=== PATIENT | female | born 1935 | race Caucasian/White ===

== ENCOUNTER 2019-12-25 09:52 | Outpatient (REF) | payer MEDICARE, SELFPAY ==
--- NOTE | 2019-12-25 10:05 | US_ITS ---
EXAMINATION: US RETROPERITONEAL LIMITED (RENAL ONLY) CLINICAL INFORMATION: CKD. COMPARISON: Ultrasound abdomen complete 06/30/2015. CT abdomen and pelvis 08/24/2005. TECHNIQUE: Real-time imaging of the kidneys. FINDINGS: RIGHT KIDNEY: 8.8 x 4.1 x 4.0 cm (SAG x AP x TRV). The kidney is normal in size and contour. There is mild cortical thinning with mild hydronephrosis. No calculi or focal parenchymal lesions. LEFT KIDNEY: 9.2 x 3.4 x 4.0 cm (SAG x AP x TRV). The kidney is normal in size and contour. There is mild cortical thinning with mild hydronephrosis. No calculi or focal parenchymal lesions. US/US renal BI IMPRESSION: Bilateral renal cortical thinning. There is mild hydronephrosis without echogenic calculi.
== END 2019-12-25 09:53 | disposition home or self-care (01) ==
LOC: HO.HMGCX 09:52
PROVIDERS: PCP Internal Medicine; Visit Provider Internal Medicine
DX: N18.32 Chronic kidney disease, stage 3b (principal)
CPT/HCPCS: 76775

== ENCOUNTER 2019-12-31 07:50 | Outpatient (REF) | payer MEDICARE, SELFPAY ==
[2019-12-31 11:24] LABS: MANUAL DIFF FLAG NO
[2019-12-31 11:39] LABS: Glucose Urine UA NEG (NEG); Leukocyte Esterase Urine NEG (NEG); Nitrite Urine NEG (NEG); PH 6.5 (5.0-8.0); Urine Blood NEG (NEG); Urine Ketones NEG (NEG); Urine Protein NEG (NEG-TRACE)
[2019-12-31 11:41] LABS: Basophils Absolute Auto 0.1 X10*3/uL (0.0-0.2); Basophils Percent Auto 1.3 % (0-2); Eosinophils Absolute Auto 0.6 X10*3/uL (0.0-0.4); Hematocrit 43.4 % (37-47); Hemoglobin 13.7 g/dl (12.0-16.0); Imm Gran Abs Auto 0.01 X10*3/uL (0.00-0.03); Imm Gran Pct Auto 0.1 % (0.0-0.4); Lymphocytes Absolute Auto 2.3 X10*3/uL (1.2-4.9); Lymphocytes Percent Auto 29.5 % (20-40); Mean Corpuscular HGB Conc 31.6 g/dl (31.0-35.0); Mean Corpuscular Hemoglobin 29.5 pg (27.0-33.0); Mean Corpuscular Volume 93.5 fL (80-98); Monocytes Absolute Auto 0.7 X10*3/uL (0.1-1.2); Monocytes Percent Auto 9.2 % (2-11); Neutrophils Absolute Auto 4.2 X10*3/uL (2.0-8.3); Neutrophils Percent Auto 52.9 % (45-73); Platelet Count 310 X10*3/uL (160-400); Red Blood Count 4.64 X10*6/uL (4.20-5.50); Red Cell Distribution Width 13.6 % (11.0-16.0); White Blood Count 7.8 X10*3/uL (4.8-10.8)
[2019-12-31 11:55] LABS: Appearance Urine HAZY; Color Urine YELLOW; UACC CULT NO
[2019-12-31 12:01] LABS: Mucus Urine TRACE /LPF; RBC Urine 0 /HPF (0); Squamous Epithelial Cell Urine TRACE /LPF; WBC Urine 0 /HPF (0-4)
[2019-12-31 12:32] LABS: Thyroid Stimulating Hormone 1.77 mIU/mL (0.32-4.0)
[2019-12-31 12:36] LABS: Alanine Aminotransferase 17 U/L (0-31); Albumin Level 4.2 g/dL (3.5-5.0); Alkaline Phosphatase 68 U/L (39-117); Anion Gap 13 (12-20); Aspartate Amino Transferase 31 U/L (5-31); Bilirubin Total 0.6 mg/dL (0.0-1.0); Blood Urea Nitrogen 16 mg/dL (9-16); Carbon Dioxide 29 mmol/L (22-29); Chloride 103 mmol/L (96-108); Cholesterol 158 mg/dL; Estimated Glomerular Filt Rate 41; Glucose Fasting 84 mg/dL (60-99); HDL Cholesterol 58 mg/dL; LDL Cholesterol Calculated 83 mg/dl; Potassium 4.7 mmol/l (3.3-5.1); Sodium 140 mmol/L (135-145); Total Protein 7.1 g/dL (6.5-8.0); Triglycerides 89 mg/dL
== END 2019-12-31 07:51 | disposition home or self-care (01) ==
LOC: HO.HMGCLDS 07:50
PROVIDERS: PCP Internal Medicine; Visit Provider Internal Medicine
DX: I12.9 Hypertensive chronic kidney disease with stage 1 through stage 4 chronic kidney disease, or unspecified chronic kidney disease (principal); N18.32 Chronic kidney disease, stage 3b; C50.411 Malignant neoplasm of upper-outer quadrant of right female breast; E78.00 Pure hypercholesterolemia, unspecified; E55.9 Vitamin D deficiency, unspecified
CPT/HCPCS: 36415; 80053; 80061; 81001; 82306; 84443; 85025

== ENCOUNTER 2020-01-04 11:28 | Outpatient (REF) | payer MEDICARE, SELFPAY ==
--- NOTE | 2020-01-04 | US_ITS ---
EXAMINATION: US PELVIS LIMITED (BLADDER) CLINICAL INFORMATION: Chronic renal failure stage III, hydronephrosis. COMPARISON: Retroperitoneal ultrasound renals only dated 12/25/2019. Ultrasound abdomen complete dated 06/30/2015. TECHNIQUE: Real-time imaging of the bladder. FINDINGS: BLADDER: Well distended and normal. Bilateral ureteral jets are demonstrated. Prevoid bladder volume is 155 mL. Postvoid bladder volume is 1.7 mL. US/US bladder IMPRESSION: Negligible post void residual.
== END 2020-01-04 11:29 | disposition home or self-care (01) ==
LOC: HO.HMGCX 11:28
PROVIDERS: Visit Provider Internal Medicine
DX: N18.32 Chronic kidney disease, stage 3b (principal); N13.30 Unspecified hydronephrosis
CPT/HCPCS: 76857

== ENCOUNTER → 2020-05-12 13:37 | Outpatient (BNV) | payer MEDICARE, SELFPAY | PROVIDERS: PCP Internal Medicine; Visit Provider Internal Medicine Medical Oncology | DX: M85.80 Other specified disorders of bone density and structure, unspecified site (principal); Z85.3 Personal history of malignant neoplasm of breast; Z85.828 Personal history of other malignant neoplasm of skin | CPT/HCPCS: 99213; 99214 ==

== ENCOUNTER 2020-05-26 09:52 | Outpatient (REF) | payer MEDICARE, SELFPAY ==
[2020-05-26 12:10] LABS: Anion Gap 11 (12-20); Blood Urea Nitrogen 20 mg/dL (9-16); Carbon Dioxide 30 mmol/L (22-29); Chloride 104 mmol/L (96-108); Estimated Glomerular Filt Rate 44; Glucose Random 76 mg/dL (60-115); Potassium 4.6 mmol/L (3.3-5.1); Sodium 140 mmol/L (135-145)
== END 2020-05-26 09:53 | disposition home or self-care (01) ==
LOC: HO.HMGCLDS 09:52
PROVIDERS: PCP Internal Medicine; Visit Provider Internal Medicine
DX: I12.9 Hypertensive chronic kidney disease with stage 1 through stage 4 chronic kidney disease, or unspecified chronic kidney disease (principal); N18.32 Chronic kidney disease, stage 3b
CPT/HCPCS: 36415; 80048

== ENCOUNTER 2020-12-20 10:58 | Outpatient (REF) | payer MEDICARE, SELFPAY ==
--- NOTE | ~2020-12-20 | MM_ITS ---
EXAMINATION: MM SCREENING DIGITAL BREAST TOMOSYNTHESIS, BILATERAL CLINICAL INFORMATION: Screening. Asymptomatic. Status post right lumpectomy. COMPARISON: Mammography: November 10, 2019 and studies dating back to April 06, 2011 TECHNIQUE: Digital breast tomosynthesis is performed in both the craniocaudal and mediolateral oblique views along with computer-aided detection (CAD). Synthesized 2D images are generated from the tomosynthesis. FINDINGS: There are scattered areas of fibroglandular density (ACR BI-RADS breast composition Category b). There are no new significant masses, abnormal calcifications, or other abnormalities. Right breast postsurgical change. MM/MM tomosynthesis screening BI IMPRESSION: There are no significant changes from prior study. ASSESSMENT: BI-RADS 2: Benign RECOMMENDATION: Routine annual mammography screening. This patient's information was entered into a reminder system with a target due date for their next mammogram.
--- NOTE | ~2020-12-20 | MM_ITS ---
EXAMINATION: BONE DENSITOMETRY CLINICAL INDICATION: Osteopenia. COMPARISON: Previous BD dated 06/05/2016 and baseline BD dated 03/13/2005. TECHNIQUE: Using a [employer] DXA System (software version: 13.1) manufactured by [employer], dual-energy x-ray absorptiometry was performed of the lumbar spine and left hip. The images are of good technical quality. Summary results are attached. FINDINGS: AP SPINE L1-L4: Current: BMD 1.468 g/cm2, Z-score 4.2, T-score 2.4, normal, 4.1% increase from previous, 18.7% increase from baseline (<5% change is not significant). Prior: BMD 1.410 g/cm2. Baseline: BMD 1.237 g/cm2. LEFT FEMUR, NECK: Current: BMD 0.812 g/cm2, Z-score 0.7, T-score -1.6, osteopenia. Prior: BMD 0.755 g/cm2. Baseline: BMD 0.796 g/cm2. LEFT FEMUR, TOTAL: Current: BMD 0.901 g/cm2, Z-score 1.4, T-score -0.8, normal, 1.6% decrease from previous, 3.7% increase from baseline (<5% change is not significant). Prior: BMD 0.916 g/cm2. Baseline: BMD 0.869 g/cm2. IDENTIFIED RISK FACTORS: Early menopause, secondary osteoporosis, osteoporosis, height loss, family history (parental hip fracture). HISTORY OF FRACTURE: None listed. MEDICATIONS: Calcium supplements or multivitamin, vitamin D. MM/XR DEXA axial skeleton IMPRESSION: 1. DIAGNOSIS: Osteopenia based on the lowest T-score value of -1.6 in the femoral neck applying World Health Organization criteria. 2. 10-YEAR FRACTURE RISK PREDICTION, FRAX: Major osteoporotic fracture (clinical spine, forearm, hip or shoulder) 24.1%. Hip fracture 15.1%. 3. Treatment Recommendations: NOF guidelines recommend consideration for treatment in postmenopausal women and men age 50 and older presenting with the following: -A hip or vertebral (clinical or morphometric) fracture. -T-score less than or equal to -2.5 at the femoral neck or spine after appropriate evaluation to exclude secondary causes. -Low bone mass at the hip or spine and a 10-year fracture probability by FRAX of greater than or equal to 3% for hip fracture or greater than or equal to 20% for major osteoporotic fracture based on the [place] adapted WHO algorithm. 4. Other Recommendations: All treatment decisions require clinical judgment and consideration of individual patient factors, including patient preferences, comorbidities, previous drug use, risk factors not captured in the FRAX model (e.g. frailty, falls, vitamin D deficiency, increased bone turnover, interval significant decline in bone density) and possible under or overestimation of fracture risk by FRAX. Additional medical evaluation for secondary cause of low bone mineral density may be appropriate. FUTURE SCAN RECOMMENDATION: People with diagnosed cases of osteoporosis or at high risk for fracture should have regular bone mineral density tests. For patients eligible for Medicare, routine testing is allowed once every 2 years. The testing frequency can be increased to one year for patients who have rapidly progressing disease, those who are receiving or discontinuing medical therapy to restore bone mass, or have additional risk factors.
== END 2020-12-20 10:59 | disposition home or self-care (01) ==
LOC: HO.MAMMO 10:58
PROVIDERS: Visit Provider Internal Medicine Medical Oncology
DX: Z12.31 Encounter for screening mammogram for malignant neoplasm of breast (principal); Z13.820 Encounter for screening for osteoporosis; M85.80 Other specified disorders of bone density and structure, unspecified site; Z78.0 Asymptomatic menopausal state; Z79.899 Other long term (current) drug therapy
CPT/HCPCS: 77063; 77067; 77080

== ENCOUNTER 2021-01-12 08:18 | Outpatient (REF) | payer MEDICARE, SELFPAY ==
[2021-01-12 11:38] LABS: MANUAL DIFF FLAG NO
[2021-01-12 11:53] LABS: Basophils Absolute Auto 0.1 X10*3/uL (0.0-0.2); Basophils Percent Auto 1.2 % (0-2); Eosinophils Absolute Auto 0.6 X10*3/uL (0.0-0.4); Eosinophils Percent Auto 8.5 % (0-4); Hematocrit 41.4 % (37.0-47.0); Hemoglobin 13.3 g/dl (12.0-16.0); Imm Gran Abs Auto 0.01 X10*3/uL (0.00-0.03); Imm Gran Pct Auto 0.1 % (0.0-0.4); Lymphocytes Absolute Auto 2.1 X10*3/uL (1.2-4.9); Lymphocytes Percent Auto 28.7 % (20-40); Mean Corpuscular HGB Conc 32.1 g/dl (31.0-35.0); Mean Corpuscular Hemoglobin 29.4 pg (27.0-33.0); Mean Corpuscular Volume 91.4 fL (80.0-98.0); Mean Platelet Volume 10.6 fL (9.4-12.3); Monocytes Absolute Auto 0.9 X10*3/uL (0.1-1.2); Monocytes Percent Auto 11.7 % (2-11); Neutrophils Absolute Auto 3.6 x10*3/uL (2.0-8.3); Neutrophils Percent Auto 49.8 % (45-73); Platelet Count 298 X10*3/uL (160-400); Red Blood Count 4.53 X10*6/uL (4.20-5.50); Red Cell Distribution Width 13.4 % (11.0-16.0); White Blood Count 7.3 X10*3/uL (4.8-10.8)
[2021-01-12 12:38] LABS: Alanine Aminotransferase 18 U/L (0-31); Alkaline Phosphatase 65 U/L (39-117); Anion Gap 14 (12-20); Aspartate Amino Transferase 29 U/L (5-31); Bilirubin Total 0.6 mg/dL (0.0-1.0); Blood Urea Nitrogen 15 mg/dL (9-16); Calcium 9.2 mg/dL (8.4-10.2); Carbon Dioxide 25 mmol/L (22-29); Chloride 105 mmol/L (96-108); Cholesterol 177 mg/dL; Estimated Glomerular Filt Rate 45; Glucose Fasting 92 mg/dL (60-99); HDL Cholesterol 51 mg/dL; LDL Cholesterol Calculated 100 mg/dl; Potassium 4.5 mmol/L (3.3-5.1); Sodium 139 mmol/L (135-145); Total Protein 6.9 g/dL (6.5-8.0); Triglycerides 133 mg/dL
[2021-01-12 12:42] LABS: Thyroid Stimulating Hormone 2.57 uIU/mL (0.32-4.0); Vitamin D 25-OH Total 31.3 ng/mL (>30)
== END 2021-01-12 08:19 | disposition home or self-care (01) ==
LOC: HO.HMGCLDS 08:18
PROVIDERS: PCP Internal Medicine; Visit Provider Internal Medicine
DX: I12.9 Hypertensive chronic kidney disease with stage 1 through stage 4 chronic kidney disease, or unspecified chronic kidney disease (principal); N18.32 Chronic kidney disease, stage 3b; E78.00 Pure hypercholesterolemia, unspecified; M81.0 Age-related osteoporosis without current pathological fracture
CPT/HCPCS: 36415; 80053; 80061; 82306; 84443; 85025

== ENCOUNTER 2021-07-18 07:43 | Outpatient (REF) | payer MEDICARE, SELFPAY ==
[2021-07-18 11:48] LABS: Appearance Urine CLEAR; Color Urine YELLOW; Glucose Urine UA NEG (NEG); Leukocyte Esterase Urine NEG (NEG); Nitrite Urine NEG (NEG); Specific Gravity - Urine 1.015 (1.005-1.025); Urine Blood NEG (NEG); Urine Ketones NEG (NEG); Urine Protein NEG (NEG-TRACE)
[2021-07-18 11:57] LABS: Alanine Aminotransferase 14 U/L (0-31); Alkaline Phosphatase 64 U/L (39-117); Anion Gap 13 (12-20); Aspartate Amino Transferase 28 U/L (5-31); Bilirubin Total 0.8 mg/dL (0.0-1.0); Blood Urea Nitrogen 18 mg/dL (9-16); Calcium 9.9 mg/dL (8.4-10.2); Carbon Dioxide 29 mmol/L (22-29); Chloride 104 mmol/L (96-108); Cholesterol 158 mg/dL; Estimated Glomerular Filt Rate 41; Glucose Random 98 mg/dL (60-115); HDL Cholesterol 50 mg/dL; LDL Cholesterol Calculated 84 mg/dl; Potassium 4.7 mmol/L (3.3-5.1); Sodium 141 mmol/L (135-145); Triglycerides 120 mg/dL
[2021-07-18 12:07] LABS: Thyroid Stimulating Hormone 1.92 uIU/mL (0.32-4.0)
[2021-07-22 17:11] LABS: VITAMIN D (1,25 OH) D3 23 pg/mL; Vit D (1,25-Dihydroxy) Total 23 pg/mL (18-72); Vitamin D (1,25 OH) D2 <8 pg/mL
== END 2021-07-18 07:44 | disposition home or self-care (01) ==
LOC: HO.HMGCLDS 07:43
PROVIDERS: Visit Provider Internal Medicine
DX: E78.00 Pure hypercholesterolemia, unspecified (principal); I10 Essential (primary) hypertension; E55.9 Vitamin D deficiency, unspecified
CPT/HCPCS: 36415; 80053; 80061; 81003; 82652; 84443

== ENCOUNTER 2021-09-20 12:20 | Emergency (ER) | payer MEDICARE, SELFPAY ==
--- NOTE | ~2021-09-20 | XR_ITS ---
EXAMINATION: XR WRIST, RIGHT CLINICAL INFORMATION: Fall COMPARISON: None TECHNIQUE: PA, lateral, oblique, and scaphoid views of the right wrist. FINDINGS: No acute fracture line or dislocation. Soft tissue swelling along the radial volar aspect of the wrist. 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 Radiocarpal joint space is maintained. Mild triscaphe joint space narrowing and subchondral sclerosis. Severe first CMC joint osteoarthritis with joint space narrowing, subchondral sclerosis, subchondral cysts, osteophytes, and a periarticular bone fragment. XR/XR wrist RT 2V IMPRESSION: 1. No acute fracture line or dislocation. 2. Soft tissue swelling along the radial volar aspect of the wrist. If concern for occult fracture, suggest appropriate immobilization and radiographic follow-up. 3. Chondrocalcinosis. No erosions identified. 4. Advanced first CMC joint osteoarthritis and mild triscaphe joint degenerative change.
--- NOTE | ~2021-09-20 | XR_ITS ---
EXAMINATION: XR NASAL BONES CLINICAL INFORMATION: Fall COMPARISON: None TECHNIQUE: 3 views of the nasal bones were obtained. FINDINGS: On the AP/Becker view, there is a deformity of the right nasal bone suspicious for mildly displaced fracture. No left nasal bone fracture. Paranasal sinuses appear normally aerated. Advanced facet arthrosis in the visualized upper cervical spine. XR/XR nasal bones min 3V IMPRESSION: Deformity of the right nasal bone on the AP projection suspicious for mildly displaced fracture, uncertain acuity.
--- NOTE | ~2021-09-20 | CT_ITS ---
EXAMINATION: NONCONTRAST HEAD CT NONCONTRAST MAXILLOFACIAL CT INDICATION INFORMATION: Head and nasal trauma status post fall COMPARISON: Head CT 11/01/2014 TECHNIQUE: Separate noncontrast CT examinations of the head and maxillofacial bones were performed. Coronal and sagittal images were created for each examination at the technologist workstation. This CT examination was performed using dose optimization techniques as appropriate, variously including the following: *Automated exposure control *Adjustment of mA and/or kV according to patient size (this includes techniques or standardized protocols for targeted exams where dose is matched to indication/reason for exam; i.e. extremities or head) *Use of iterative reconstruction technique DLP: 956 mGy-cm FINDINGS: HEAD: No intra or extra-axial fluid collection, hemorrhage, or mass. No midline shift or herniation. Basal cisterns are patent. See-white matter differentiation is maintained. No territorial encephalomalacia.. No hydrocephalus. No significant volume loss. There is no abnormal attenuation within the brain parenchyma. No acute soft tissue abnormality. No calvarial fracture. The mastoid air cells are well aerated. MAXILLOFACIAL: Subtle angular deformity of the right nasal bone suspicious for a small fracture on series 4-163. No other acute facial bone fracture. The frontal, maxillary, ethmoid, and sphenoid sinuses are well aerated. The mandibular heads are normally positioned in the glenoid fossa. Status post lateral lens extractions. Globes and retro-orbital structures are intact. No retrobulbar hematoma. Advanced multilevel cervical spondylosis noted with left-sided predominant facet arthrosis as well. CT/CT head/brain wo con IMPRESSION: 1. No intracranial hemorrhage or calvarial fracture. 2. Suspected nondisplaced right nasal bone fracture.
--- NOTE | ~2021-09-20 | XR_ITS ---
EXAMINATION: XR KNEE, RIGHT CLINICAL INFORMATION: Pain after falling COMPARISON: None TECHNIQUE: Two views of the right knee. FINDINGS: No fracture, dislocation or destructive process. No joint effusion. Lateral meniscal calcification is noted consistent with chondrocalcinosis. Posterior vascular calcifications are noted. XR/XR knee RT 2V IMPRESSION: Degenerative calcification noted. No fracture or destructive process.
--- NOTE | ~2021-09-20 | CT_ITS ---
EXAMINATION: NONCONTRAST HEAD CT NONCONTRAST MAXILLOFACIAL CT INDICATION INFORMATION: Head and nasal trauma status post fall COMPARISON: Head CT 11/01/2014 TECHNIQUE: Separate noncontrast CT examinations of the head and maxillofacial bones were performed. Coronal and sagittal images were created for each examination at the technologist workstation. This CT examination was performed using dose optimization techniques as appropriate, variously including the following: *Automated exposure control *Adjustment of mA and/or kV according to patient size (this includes techniques or standardized protocols for targeted exams where dose is matched to indication/reason for exam; i.e. extremities or head) *Use of iterative reconstruction technique DLP: 956 mGy-cm FINDINGS: HEAD: No intra or extra-axial fluid collection, hemorrhage, or mass. No midline shift or herniation. Basal cisterns are patent. See-white matter differentiation is maintained. No territorial encephalomalacia.. No hydrocephalus. No significant volume loss. There is no abnormal attenuation within the brain parenchyma. No acute soft tissue abnormality. No calvarial fracture. The mastoid air cells are well aerated. MAXILLOFACIAL: Subtle angular deformity of the right nasal bone suspicious for a small fracture on series 4-163. No other acute facial bone fracture. The frontal, maxillary, ethmoid, and sphenoid sinuses are well aerated. The mandibular heads are normally positioned in the glenoid fossa. Status post lateral lens extractions. Globes and retro-orbital structures are intact. No retrobulbar hematoma. Advanced multilevel cervical spondylosis noted with left-sided predominant facet arthrosis as well. CT/CT facial bones wo con IMPRESSION: 1. No intracranial hemorrhage or calvarial fracture. 2. Suspected nondisplaced right nasal bone fracture.
[2021-09-20 12:46] VITALS: BP 159/55; PULSE 73; RESP 18; TEMP 36.7; O2SAT 94; BMI 27.6
--- NOTE | 2021-09-20 15:10 | ED_ITS ---
HPI - Fall General Chief Complaint: Fall Stated Complaint: fall Time Seen by Provider: 09/20/21 14:41 Source: patient and RN notes reviewed Mode of arrival: ambulatory Limitations: no limitations History of Present Illness HPI Narrative: This is a [id number]-female, with a past medical history of hyperlipidemia, who presents today with complaints of right knee pain and right hand pain status post mechanical fall which occurred approximately 4 hours ago. 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 She states that she ultimately scraped her right knee on the pavement. She denies loss of consciousness. She denies any headaches, lightheadedness, visual changes, chest pain, shortness of breath, or palpations. She states that she was able to bear weight on her right leg after the fall, but endorses pain. She denies taking blood thinners. She is up to date with her tetanus immunizations. She is not on blood thinners. No other complaints or concerns at this time. MD complaint: fall Onset (ago): hour(s) Fall from: standing Fall witnessed: yes, by family Place fall occurred: other (dentist office) Loss of consciousness: none Prolonged down time: minute(s) Symptoms prior to fall: none Context: tripped/slipped Location of injury: face and other Location of injury - extremities: right: hand and knee Severity: moderate Quality: aching Associated symptoms (after fall): denies Related Data Home Medications Medication Instructions Recorded Confirmed amlodipine 5 mg tablet 1 tab PO DAILY 05/12/20 08/15/21 metoprolol tartrate 25 mg tablet 0.5 tab PO BID 05/12/20 08/15/21 simvastatin 20 mg tablet 1 tab PO BEDTIME 05/12/20 08/15/21 Allergies Allergy/AdvReac Type Severity Reaction Status Date / Time tetracycline [Tetracycline] Allergy Mild RASH Verified 09/20/21 12:45 seasonal Allergy Unknown Sneezing Uncoded 08/15/21 14:01 Review of Systems Review of Systems: Constitutional: No Fever, No Chills ENT/Mouth: No sore throat, No Rhinorrhea, No Swallowing Difficulty Eyes: No Eye Pain, No Swelling, No Redness Cardiovascular: No Chest Pain, No SOB, No Edema Respiratory: No Cough, No Sputum, No Wheezing, No dyspnea Gastrointestinal: No Nausea, No Vomiting, No Diarrhea, No abdominal Pain, No Hematochezia, No Melena Musculoskeletal: +Right knee pain. Skin: +right knee abrasion Psych: No Anxiety/Panic, No Depression Heme/Lymph: No Bruising, No Lymphadenopathy [facility] Past Medical History Medical History (Updated 09/20/21 @ 18:08 by PAULINE Sosa) Breast cancer Cataract (lens) fragments in eye following cataract surgery, bilateral Surgical History (Updated 08/15/21 @ 14:06 by Johanna Escobar MD) H/O lumpectomy History of appendectomy Status post biopsy of skin Family History Family History Mother Myeloma Maternal Grandmother Diabetes Social History Social History (Updated 08/15/21 @ 14:01 by [place] Wilson CMA) Household Members: Spouse Housing: Condominium Are you a primary continuum of care manager to a significant other at home: No Do you presently have visiting nurse or other home services: No Alcohol intake: former Patient Tobacco Use Status: Never used Tobacco Advance Directives: Yes Advance Directives Information Provided: Yes Advance Directives on File: No service: No Current occupational status: retired Physical Exam Vital Signs: Vital Signs: Last Vital Signs Temp 98.1 F 09/20/21 12:46 Pulse 73 09/20/21 12:46 Resp 18 09/20/21 12:46 BP 159/55 H 09/20/21 12:46 Pulse Ox 94 09/20/21 12:46 O2 Del Method 09/20/21 12:46 BMI result Body Mass Index 27.6 Appearance: Alert. Oriented X3. No acute distress. ambulatory with antalgic gait Eyes: Pupils equal, round and reactive to light. EOMI ENT: Pharynx normal. No hemotypanum. Negative raccoon eyes. Negative carey signs. Airway patent. Neck: Normal inspection. Neck supple. No C-spine tenderness. No cervical paraspinous muscle tenderness. CVS: Normal heart rate and rhythm. Pulses normal. S1S2 regular. Respiratory: No respiratory distress. Breath sounds normal. Lungs clear to auscultation bilaterally. Abdomen: Soft and nontender. +BS x4 Skin: Right knee with 3.5x 3cm curved superficial skin tear with no foreign body, edema, or drainage, not actively bleeding. Skin warm and dry. Normal skin color. Normal skin turgor. No rashes. Extremities:Right knee with no obvious deformity or swelling. Negative anterior and posterior drawer test. No pain with varus or valgus strain. DP pulses 2+. No lower extremity edema. Right hand with 2cm x 2cm area of ecchymosis, no open wounds, drainage on the dorsal aspect of the right hand, overlying the first and second metacarpal space with mild tenderness to palpation over this region. No bony abnormalities or g ross deformities. Able to oppose thumb to all fingers without difficulty. Rang of motion of the right wrist is full and intact without difficulty. Radial pulses 2+ No Midline spine tenderness. Neuro: Oriented X 3. No motor deficit. No sensory deficit.CNII-XII intact Course Course Course Narrative: This is a 12-[id number]-female who presents today with mechanical fall 4 hours [employer]. She struck her right knee, nose and right hand. She only reports having right knee pain, denies any headaches, visual changes, dizziness, weakness, numbness, tinging, nausea, vomiting. She is neurologically intact, no focal deficits and vital signs are within normal limits. She only complains of right knee pain and right hand pain. Right knee x-ray, Nasal bone x-ray and right wrist x-rays ordered in triage. X-rays of right wrist shows No acute fracture line or dislocation, but with some soft tissue swelling along the radial volar aspect of the wrist. Nasal bone x-rays read as Deformity of the right nasal bone on the AP projection suspicious for mildly displaced fracture, uncertain acuity. Right knee x-ray is unremarkable. Given patient's age, ordered head CT, also CT facial bones for further evaluation of ?nasal bone fracture. She is not on anti-coagulation. Right knee cleansed with normal saline and dressed with nonadherent dressing and bacitracin. CT head and facial bones pending. Reevaluation(s) Reevaluation #1: CT head unremarkable. Facial bones with nondisplaced right sided nasal bone fracutre. Given her tenderness on examination over anterior snuff box will err on the side of caution and splint her for possible scaphoid fracture. will have her follow up with ortho for re-evaluation and further management. Reevaluation #2: Splinted and tolerated well. Procedures Orthopedic Splinting/Casting Injury #1: Side: right Upper Extremity Injury Location: hand Upper Extremity Immobilizer: thumb spica MDM - Fall Imaging Data Right Wrist x-ray : Radiologist's impression: EXAMINATION: XR WRIST, RIGHT CLINICAL INFORMATION: Fall? COMPARISON: None? TECHNIQUE: PA, lateral, oblique, and scaphoid views of the right wrist. FINDINGS: No acute fracture line or dislocation. Soft tissue swelling along the radial volar aspect of the wrist. 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 Radiocarpal joint space is maintained. Mild triscaphe joint space narrowing and subchondral sclerosis. Severe first CMC joint osteoarthritis with joint space narrowing, subchondral sclerosis, subchondral cysts, osteophytes, and a periarticular bone fragment.? XR/XR wrist RT 2V IMPRESSION: ? 1. No acute fracture line or dislocation. 2. Soft tissue swelling along the radial volar aspect of the wrist. If concern for occult fracture, suggest appropriate immobilization and radiographic follow-up. 3. Chondrocalcinosis. No erosions identified. 4. Advanced first CMC joint osteoarthritis and mild triscaphe joint degenerative change. Dictated By: Michael Small Right knee x-ray: Radiologist's impression: EXAMINATION: XR KNEE, RIGHT? CLINICAL INFORMATION: Pain after falling? COMPARISON: None? TECHNIQUE: Two views of the right knee. FINDINGS: No fracture, dislocation or destructive process. No joint effusion. Lateral meniscal calcification is noted consistent with chondrocalcinosis. Posterior vascular calcifications are noted.? XR/XR knee RT 2V IMPRESSION: Degenerative calcification noted. No fracture or destructive process. Dictated By: Yahir Jose MD Nasal Bones x-ray : Radiologist's impression: EXAMINATION: XR NASAL BONES CLINICAL INFORMATION: Fall COMPARISON: None TECHNIQUE: 3 views of the nasal bones were obtained.? FINDINGS: On the AP/Becker view, there is a deformity of the right nasal bone suspicious for mildly displaced fracture. No left nasal bone fracture. Paranasal sinuses appear normally aerated. Advanced facet arthrosis in the visualized upper cervical spine. XR/XR nasal bones min 3V IMPRESSION: Deformity of the right nasal bone on the AP projection suspicious for mildly displaced fracture, uncertain acuity. Dictated By: Michael Small Signed By: <Electronically signed by Michael? Geovanny in OV> Critical Care Time Critical Care Time Critical Care Time: No Discharge Plan Discharge Clinical Impression: CHI (closed head injury), Fracture closed, nasal bone, Contusion of hand, Abrasion of knee, right, Contusion of knee, right Patient Disposition: Home, Self-Care Instructions: Nasal Fracture (ED), Head Injury (ED), Contusion in Adults (ED), Splint Care (ED), Abrasion (ED) Additional Instructions: Your head CT showed no head bleeding, but did show a nasal bone fracture. Do not blow your nose for 1 week, and do not go swimming or submerge your head in water for 2-3 weeks. You may follow up with ENT, you can call the number provided. Your x-ray of your right wrist had concerns for a fracture. Keep your right hand in the splint. Please call Orthopedic office at the provided number tomorrow to schedule an appointment. You should be seen in the next 2-3 weeks. Your right knee x-ray was normal. You may apply ice to your knee for pain relief. You may gently cleanse the wound on your right knee with warm water and gentle soap, pat dry. Keep wound clean and dry. Watch for any signs of infection inclu ding increased redness, swelling. You can take Tylenol as directed as needed for pain relief. If you develop new or worsening symptoms call 911 or come back to the ER for further evaluation. Prescriptions: No Action amlodipine 5 mg tablet 1 tab PO DAILY simvastatin 20 mg tablet 1 tab PO BEDTIME metoprolol tartrate 25 mg tablet 0.5 tab PO BID Referrals: Alfredo Martinez [Physician] - (nasal bone fracture) Yue Villarreal PA-C [Physician Windows Server Support Technician] - (?Scaphoid fracture ) Interventions: ED Discharge Assessment Last Done: 09/20/21 18:47 Discharge Date/Time: 09/20/21 18:47
== END 2021-09-20 18:47 | disposition home or self-care (01) ==
PROVIDERS: Emergency Provider Emergency Medicine; PCP Internal Medicine
DX: S09.90XA Unspecified injury of head, initial encounter (principal); S02.2XXA Fracture of nasal bones, initial encounter for closed fracture; S60.221A Contusion of right hand, initial encounter; S80.01XA Contusion of right knee, initial encounter; S80.211A Abrasion, right knee, initial encounter; W17.89XA Other fall from one level to another, initial encounter; Y93.01 Activity, walking, marching and hiking; Y92.531 Health care provider office as the place of occurrence of the external cause; Y99.8 Other external cause status
CPT/HCPCS: 29125; 70160; 70450; 70486; 73100; 73560; 99282; 99284

== ENCOUNTER 2021-10-04 07:53 | Outpatient (REF) | payer MEDICARE, SELFPAY ==
--- NOTE | ~2021-10-04 | XR_ITS ---
EXAMINATION: XR WRIST, RIGHT CLINICAL INFORMATION: Pain. COMPARISON: None TECHNIQUE: PA, lateral, and oblique views of the right wrist. FINDINGS: There is a loss of first carpometacarpal joint space with moderate periarticular spurring. Rest of the joint space around the wrist joint is normal. The radioulnar carpal joint space is maintained normal. There is TFC cartilage calcification. XR/XR wrist RT min 3V IMPRESSION: Degenerative changes first carpal metacarpal joint space. No visible acute fracture, dislocation or subluxation seen.
== END 2021-10-04 07:54 | disposition home or self-care (01) ==
LOC: HO.HOSX 07:53
PROVIDERS: Visit Provider Physician Assistant
DX: S62.501A Fracture of unspecified phalanx of right thumb, initial encounter for closed fracture (principal); M25.531 Pain in right wrist
CPT/HCPCS: 73110; 99202

== ENCOUNTER 2021-10-15 09:49 | Emergency (ER) | payer MEDICARE, SELFPAY ==
--- NOTE | ~2021-10-15 | XR_ITS ---
EXAMINATION: XR PELVIS CLINICAL INFORMATION: Pelvic pain status post fall. COMPARISON: None TECHNIQUE: AP view of the pelvis. FINDINGS: The bony pelvis is intact. Mild bilateral hip degenerative joint changes are seen. There is no acute fracture or dislocation. Moderate degenerative changes are noted in the visualized inferior lumbar spine. The soft tissues are unremarkable. XR/XR pelvis 1-2V IMPRESSION: Mild bilateral hip and inferior lumbar spine degenerative changes without overt acute abnormality.
[2021-10-15 09:55] VITALS: BP 155/65; PULSE 101; RESP 16; TEMP 36.4; O2SAT 97
[2021-10-15 11:31] VITALS: BP 152/64; PULSE 82; RESP 16; TEMP 36.3; O2SAT 97; BMI 28.1
--- NOTE | 2021-10-15 13:10 | ED_ITS ---
HPI - General Adult General Chief complaint: Extremity Injury, Lower Stated complaint: Hip pain Time Seen by Provider: 10/15/21 13:10 Source: patient and family () Mode of arrival: ambulatory Limitations: no limitations History of Present Illness HPI narrative: 86-year-old female with a past medical history of infiltrating ductal carcinoma in remission, with past fall on September 20, presents to the emergency department with intermittent bilateral hip pain x 3 days. Patient reports a gradual increase of pain, most prominent in the right hip. She states that she has tried Tylenol with mild relief. Patient denies using a walker or cane for ambulation at home. She also endorses new morning stiffness. Patient denies any fever, chills, headache, vision changes, dizziness, lightheadedness, chest pain, shor tness of breath, coughing, wheezing, nausea, vomiting, abdominal pain, or numbness/weakness. Onset (ago): day(s) (3) Location: pelvis Radiation: non-radiation Severity: mild Severity scale (1-10): 1 Relieving factors: none Exacerbating factors: none Associated symptoms: denies other symptoms Treatments prior to arrival: none Related Data Home Medications Medication Instructions Recorded Confirmed amlodipine 5 mg tablet 1 tab PO DAILY 05/12/20 08/15/21 metoprolol tartrate 25 mg tablet 0.5 tab PO BID 05/12/20 08/15/21 simvastatin 20 mg tablet 1 tab PO BEDTIME 05/12/20 08/15/21 Allergies Allergy/AdvReac Type Severity Reaction Status Date / Time tetracycline [Tetracycline] Allergy Mild RASH Verified 10/04/21 14:29 seasonal Allergy Unknown Sneezing Uncoded 08/15/21 14:01 Review of Systems Constitutional: Constitutional: Reports no additional constitutional complaints, Denies chills, Denies fever(s) and Denies night sweats Eyes: Eyes: Reports no additional eye complaints, Denies blurry vision, Denies change in vision, Denies diplopia, Denies eye discharge, Denies loss of vision and Denies eye pain ENT: Denies dizziness Cardiovascular: Cardiovascular: Reports no additional cardiovascular complaints, Denies chest pain, Denies lightheadedness, Denies Loss of Consciousness and Denies dyspnea Respiratory: Respiratory: Reports no additional respiratory complaints and Denies dyspnea Gastrointestinal: Gastrointestinal: Reports no additional gastrointestinal complaints, Denies abdominal pain, Denies melena, Denies hematochezia, Denies change in bowel habits and Denies change in stool character Genitourinary: Genitourinary: Denies hematuria, Denies urinary frequency, Denies dysuria, Denies urinary incontinence, Denies urinary hesitancy and Denies urinary urgency Musculoskeletal: Musculoskeletal: Reports no additional musculoskeletal complaints, Denies numbness and Denies tingling Comments: Intermittent bilateral hip pain. Neurologic: Denies dizziness, Denies loss of vision, Denies numbness and Denies tingling Psychiatric: Psychiatric: Reports no additional psychiatric complaints Endocrine: Endocrine: Reports no additional endocrine complaints Hematologic/Lymphatic: Hematologic/Lymphatic: Reports no additional hematologic/lymphatic complaints Allergic/Immunologic: Allergic/Immunologic: Reports no additional allergic/immunologic complaints PMFSH Past Medical History Attestation statement: The following information was validated with the patient. Source: old records reviewed Medical History Breast cancer Cataract (lens) fragments in eye following cataract surgery, bilateral Surgical History H/O lumpectomy History of appendectomy Status post biopsy of skin Family History Family History Mother Myeloma Maternal Grandmother Diabetes Social History Social History Household Members: Spouse Housing: Condominium Are you a primary respiratory care assistant to a significant other at home: No Do you presently have visiting nurse or other home services: No Alcohol intake: former Patient Tobacco Use Status: Never used Tobacco Advance Directives: Yes Advance Directives Information Provided: Yes Advance Directives on File: No service: No Current occupational status: retired Physical Exam ED Vital Signs: Vital Signs - 24 hr 10/15/21 09:55 10/15/21 11:31 10/15/21 13:40 Temperature 97.6 F 97.4 F 98.2 F Pulse Rate 101 H 82 82 Respiratory Rate 16 16 16 Blood Pressure 155/65 H 152/64 H 143/65 H Pulse Oximetry 97 97 97 Oxygen Delivery Method Room Air Room Air Room Air BMI result Body Mass Index 28.1 Const General: cooperative, no acute distress, alert and awake Nutritional Appearance: well nourished Orientation/consciousness: patient oriented x3 Limitations: no limitations HENMT Head: Yes normal to inspection and Yes atraumatic Ears: hearing grossly normal bilaterally and external ears normal General nose exam: Normal external nose present, no nasal discharge noted and no epistaxis Face and sinus: Yes normal facial exam, No abrasion and No laceration Mouth: Normal oral and palatal mucosa present, no drooling and no muffled voice Eyes General: appearance normal, both eyes and all related structures Periorbital: periorbital findings normal Eyelids: Yes eyelids normal Conjunctivae: conjunctivae normal Pupils: Equal, round and reactive pupils present EOM: EOMs intact bilaterally Neck Neck: Yes normal visual inspection, Yes full ROM and Yes no lymphadenopathy Chest Chest palpation & inspection: normal inspection of the chest Resp Effort & Inspection: normal respiratory effort and able to speak in complete sentences Auscultation: clear to auscultation bilaterally Cardio Rate: regular rate Rhythm: regular rhythm GI Inspection: Yes normal to inspection Back/Spine/Pelvis Other: +Sacroiliac pain reproducible on palpation. No ecchymosis, swelling, eythema, fluctuance, induration, streaking. Neuro General: patient oriented x3 and moves all extremities Cranial nerves: Yes Equal, round and reactive pupils present Cognition (Neuro): normal cognition Motor exam (neuro): 5/5 motor strength present throughout Sensory Exam: Normal double simultaneous stimulation for sensation Coordination: [id number] test normal Extrem General: Yes normal to inspection, Yes full ROM and Yes capillary refill normal Psych Appearance: grossly normal Mental Status: mental status grossly normal Affect: normal affect Attitude: cooperative Thought process: Normal thought process present Thought content: Normal thought content present Insight: Good insight present (Psych) Medical Decision Making [facility] Narrative Medical decision making narrative: Patient is an 86 year old female presenting to the emergency department today with bilateral hip pain. Patient's physical exam showed some sacroiliac pain with palpation but was otherwise unremarkable. Patient's pelvic x-ray showed no acute process. I explained my physical exam findings as well as all test results to the patient and the patient's . I answered all questions asked by the patient and the patient's . I stressed the importance of the patient taking her medication as prescribed. I stressed the importance of the patient following up with her primary care provider. I stressed the importance of the patient returning to the emergency department immediately if her symptoms were to worsen or if she were to develop any dizziness, shortness of breath, difficulty breathing, chest pain, blurry vision, loss of vision, nausea, vomiting, abdominal pain, fever, chills, back pain, or any other complaints. Patient and the patient's verbalized agreement and understanding with this treatment plan and discharge. Differential Diagnosis Differential Diagnosis: hip pain Medical Records Medical records reviewed: Yes I reviewed the patient's medical records. Imaging Data Pelvis x-ray: Attestation: I personally reviewed and interpreted this imaging study as follows: My impression: No acute process. Radiologist's impression: EXAMINATION: XR PELVIS CLINICAL INFORMATION: Pelvic pain status post fall.? COMPARISON: None? TECHNIQUE: AP view of the pelvis. FINDINGS: The bony pelvis is intact. Mild bilateral hip degenerative joint changes are seen. There is no acute fracture or dislocation. Moderate degenerative changes are noted in the visualized inferior lumbar spine. The soft tissues are unremarkable. XR/XR pelvis 1-2V IMPRESSION: Mild bilateral hip and inferior lumbar spine degenerative changes without overt acute abnormality. Dictated By: Kristopher Strange MD Signed By: Electronically signed by Kristopher Strange MD 10/15/21 1251 Discharge Plan Discharge Clinical Impression: Arthritis Patient Disposition: Home, Self-Care Instructions: Osteoarthritis (ED) Additional Instructions: Please begin using a cane to assist you in your daily walking. Follow up with your primary care provider. Return to the emergency department immediately if your symptoms worsen or if you develop any dizziness, shortness of breath, difficulty breathing, chest pain, blurry vision, loss of vision, nausea, vomiting, abdominal pain, fever, chills, back pain, or any other complaints. Prescriptions: No Action amlodipine 5 mg tablet 1 tab PO DAILY simvastatin 20 mg tablet 1 tab PO BEDTIME metoprolol tartrate 25 mg tablet 0.5 tab PO BID Referrals: Augustine Chen MD [Primary Care Provider] - Interventions: ED Discharge Assessment Last Done: 10/15/21 14:36 Discharge Date/Time: 10/15/21 14:37 Print Language: Amharic
[2021-10-15 13:40] VITALS: BP 143/65; PULSE 82; RESP 16; TEMP 36.8; O2SAT 97
== END 2021-10-15 14:37 | disposition home or self-care (01) ==
PROVIDERS: Emergency Provider Emergency Medicine; PCP Internal Medicine
DX: R10.2 Pelvic and perineal pain (principal); Z79.899 Other long term (current) drug therapy
CPT/HCPCS: 72170; 99282; 99283

== ENCOUNTER 2021-10-18 10:15 | Emergency (ER) | payer MEDICARE, SELFPAY ==
--- NOTE | ~2021-10-18 | XR_ITS ---
EXAMINATION: XR ABDOMEN KUB CLINICAL INDICATION: Constipation. COMPARISON: No recent relevant comparison. TECHNIQUE: AP view of the abdomen. FINDINGS: Bowel gas pattern is normal. No dilated bowel loops. There is a mild amount of fecal material in the colon. No fecal impaction in the rectum. No radiographic findings to suggest presence of constipation. No pneumoperitoneum is seen on this radiograph obtained with the patient in supine position. Chronic multilevel degenerative arthropathy and mild levoscoliosis of the visualized lower thoracic and lumbar spine. Scattered atherosclerotic calcification of aorta and iliac arteries. XR/XR KUB IMPRESSION: No acute radiographic abnormalities in the abdomen. No findings to suggest presence of constipation or bowel obstruction.
--- NOTE | ~2021-10-18 | CT_ITS ---
EXAMINATION: CT ABDOMEN AND PELVIS WITHOUT CONTRAST CLINICAL INFORMATION: Right upper quadrant pain COMPARISON: None TECHNIQUE: Multidetector volumetric imaging was performed from the superior aspect of the liver through the pubic symphysis. Sagittal and coronal reformatted images were obtained on the technologist's workstation. This CT examination was performed using dose optimization techniques as appropriate, variously including the following: *Automated exposure control *Adjustment of mA and/or kV according to patient size (this includes techniques or standardized protocols for targeted exams where dose is matched to indication/reason for exam; i.e. extremities or head) *Use of iterative reconstruction technique DLP: 523 mGy-cm FINDINGS: LUNG BASES: Subpleural reticulation with suspected nonspecific fibrosis. LIVER, GALLBLADDER, AND BILIARY TREE: The liver is normal in size, shape, and attenuation. No focal hepatic lesion or biliary ductal dilatation is identified. There is suggestion of a small proximal gallstone. No appreciable pericholecystic inflammation. PANCREAS: Unremarkable. SPLEEN: Unremarkable. ADRENAL GLANDS: Unremarkable. KIDNEYS AND URETERS: The kidneys are normal in size, shape, and attenuation. No hydronephrosis, hydroureter, or calculi seen. BLADDER: Unremarkable. GASTROINTESTINAL TRACT: No evidence of bowel obstruction or significant wall thickening. The appendix is unremarkable. No free fluid or free air is seen. ABDOMINAL WALL: No significant hernia is appreciated. LYMPH NODES: Normal. VASCULAR: There is atherosclerotic calcification along the aorta. PELVIC VISCERA: Unremarkable. OSSEOUS STRUCTURES: Degenerative changes are noted in the spine. CT/CT abdomen pelvis wo con IMPRESSION: Suggestion of cholelithiasis, without appreciable pericholecystic inflammation. If clinically warranted, this may be further assessed with right upper quadrant ultrasound.
--- NOTE | ~2021-10-18 | US_ITS ---
EXAMINATION: US ABDOMEN LIMITED CLINICAL INFORMATION: Right upper quadrant pain. COMPARISON: CT 10/18/2021 TECHNIQUE: Real-time imaging of the right upper quadrant abdominal viscera with attention to the gallbladder. FINDINGS: Per technologist note, exam performance was limited due to inability of patient to breath-hold. The gallbladder is physiologically distended. Gallbladder wall thickness is within normal limits, measuring 0.2 cm. A single gallstone is identified, which does not appear impacted, along with some sludge. No right upper quadrant tenderness was reported during the exam. Common bile duct measures 0.6 cm in diameter. US/US abdomen limited IMPRESSION: Cholelithiasis without additional findings of acute cholecystitis.
[2021-10-18 10:21] VITALS: BP 147/60; PULSE 90; RESP 19; TEMP 36.6; O2SAT 94; BMI 29.0
[2021-10-18 10:47] LABS: MANUAL DIFF FLAG NO
[2021-10-18 10:56] LABS: Basophils Absolute Auto 0.1 X10*3/uL (0.0-0.2); Basophils Percent Auto 1.3 % (0-2); Eosinophils Absolute Auto 0.1 X10*3/uL (0.0-0.4); Eosinophils Percent Auto 1.3 % (0-4); Hematocrit 42.6 % (37.0-47.0); Hemoglobin 14.1 g/dl (12.0-16.0); Imm Gran Abs Auto 0.04 X10*3/uL (0.00-0.03); Imm Gran Pct Auto 0.4 % (0.0-0.4); Lymphocytes Absolute Auto 1.4 X10*3/uL (1.2-4.9); Lymphocytes Percent Auto 14.2 % (20-40); Mean Corpuscular HGB Conc 33.1 g/dl (31.0-35.0); Mean Corpuscular Hemoglobin 29.2 pg (27.0-33.0); Mean Corpuscular Volume 88.2 fL (80.0-98.0); Mean Platelet Volume 9.3 fL (9.4-12.3); Monocytes Percent Auto 10.1 % (2-11); Neutrophils Absolute Auto 7.3 x10*3/uL (2.0-8.3); Neutrophils Percent Auto 72.7 % (45-73); Platelet Count 414 X10*3/uL (160-400); Red Blood Count 4.83 X10*6/uL (4.20-5.50); Red Cell Distribution Width 12.7 % (11.0-16.0)
[2021-10-18 11:07] LABS: Alanine Aminotransferase 16 U/L (0-31); Albumin Level 4.1 g/dL (3.5-5.0); Alkaline Phosphatase 87 U/L (39-117); Anion Gap 17 (12-20); Aspartate Amino Transferase 31 U/L (5-31); Bilirubin Direct 0.3 mg/dL (0.0-0.5); Bilirubin Total 0.6 mg/dL (0.0-1.0); Blood Urea Nitrogen 18 mg/dL (9-16); Calcium 9.7 mg/dL (8.4-10.2); Carbon Dioxide 26 mmol/L (22-29); Chloride 95 mmol/L (96-108); Creatinine Clr Calc Pharmacy 25.5; Estimated Glomerular Filt Rate 38; Glucose Random 139 mg/dL (60-115); Lipase 48 U/L (8-78); Potassium 5.3 mmol/L (3.3-5.1); Sodium 133 mmol/L (135-145); Total Protein 7.2 g/dL (6.5-8.0)
[2021-10-18 21:07] VITALS: BP 151/69; PULSE 83; RESP 12; TEMP 36.6; O2SAT 93
[2021-10-18 21:41] VITALS: BP 126/71; PULSE 90; RESP 17; TEMP 36.8; O2SAT 90
--- NOTE | 2021-10-18 22:26 | ED.ABDPAIN ---
HPI - Abdominal Pain General Chief Complaint: Abdominal Pain Stated Complaint: r side pain Time Seen by Provider: 10/18/21 22:15 Source: patient Mode of arrival: ambulatory Limitations: no limitations History of Present Illness HPI narrative: Patient comes to the emergency room complaining of right upper quadrant pain. Patient states approximately a month ago she fell, patient is not sure if the pain has been present since then, but states that the pain got much worse over the last few days. Patient states that she cannot eat due to pain. Patient denies nausea vomiting or diarrhea. Related Data Home Medications Medication Instructions Recorded Confirmed amlodipine 5 mg tablet 1 tab PO DAILY 05/12/20 08/15/21 metoprolol tartrate 25 mg tablet 0.5 tab PO BID 05/12/20 08/15/21 simvastatin 20 mg tablet 1 tab PO BEDTIME 05/12/20 08/15/21 Allergies Allergy/AdvReac Type Severity Reaction Status Date / Time tetracycline [Tetracycline] Allergy Mild RASH Verified 10/04/21 14:29 seasonal Allergy Unknown Sneezing Uncoded 08/15/21 14:01 Review of Systems Review of Systems Constitutional : No Weight loss, No Fever, No Chills, No Night Sweats, No Fatigue, No Malaise ENT/Mouth : No Hearing loss, No Ear Pain, No Nasal Congestion, No Sinus Pain, No Hoarseness, No sore throat, No Rhinorrhea, No Swallowing Difficulty Eyes: No Eye Pain, No Swelling, No Redness, No Foreign Body, No Discharge, No Vision Changes Cardiovascular : No Chest Pain, No SOB, No Dyspnea on Exertion, No Orthopnea, No Edema, No Palpitations Respiratory : No Cough, No Sputum, No Wheezing, No Smoke Exposure, No Dyspnea Gastrointestinal : No Nausea, No Vomiting, No Diarrhea, No Constipation, complaining of right upper quadrant pain radiating towards the back for 3 days Genitourinary : no irregular bleeding, No Dysuria, No Urinary Frequency, No Hematuria, No Urinary Incontinence, No Urgency, No Flank Pain, No Urinary Flow Changes, No Hesitancy Musculoskeletal : No joint pain, No Myalgias, No Joint Swelling Skin : No Skin Lesions, No rash Neuro : No Weakness, No Numbness, No Paresthesias, No Loss of Consciousness, No Dizziness, No Headache Psych : No Anxiety/Panic, No Depression, No SI/HI/AH/VH, No Social Issues, Heme/Lymph: No Bruising, No Bleeding,No Lymphadenopathy Endocrine : No Polyuria, No Polydipsia, No Temperature Intolerance [facility] Past Medical History Medical History Breast cancer Cataract (lens) fragments in eye following cataract surgery, bilateral Surgical History H/O lumpectomy History of appendectomy Status post biopsy of skin Family History Family History Mother Myeloma Maternal Grandmother Diabetes Social History Social History Household Members: Spouse Housing: Condominium Are you a primary child care aide to a significant other at home: No Do you presently have visiting nurse or other home services: No Alcohol intake: former Patient Tobacco Use Status: Never used Tobacco Advance Directives: No Advance Directives Information Provided: No service: No Current occupational status: retired Physical Exam ED Vital Signs: Vital Signs - 24 hr 10/18/21 10:21 10/18/21 21:07 10/18/21 21:41 Temperature 98 F 98 F 98.2 F Pulse Rate 90 83 90 Respiratory Rate 19 12 17 Blood Pressure 147/60 H 151/69 H 126/71 Pulse Oximetry 94 93 90 L Oxygen Delivery Method Room Air Room Air Room Air 10/18/21 23:25 Temperature 98.7 F Pulse Rate 81 Respiratory Rate 16 Blood Pressure 139/66 Pulse Oximetry 94 Oxygen Delivery Method Room Air BMI result Body Mass Index 29.0 Const Other: Appearance: Alert. Oriented X3. No acute distress. Seems uncomfortable Eyes: Pupils equal, round and reactive to light. ENT: Pharynx normal. Neck: Normal inspection. Neck supple. No lymph nodes noted. No crepitus CVS: Normal heart rate and rhythm. Pulses normal. Normal S1 and S2 Respiratory: No respiratory distress. Breath sounds normal. No Wheezing. No rales Abdomen: Soft , no rigidity, no rebound, pain to palpation in the right upper quadrant and right flank Skin: Skin warm and dry. Normal skin color. Normal skin turgor. Extremities: No lower extremity edema. No Lacerations. No Rash Neuro: Oriented X 3. No motor deficit. No sensory deficit. Moving all extremities. No slurred speech. CN 2 through 12 grossly intact Psych: calm, cooperative, normal affect Course Course Course Narrative: Patient's white blood cell tone within normal limits, lipase and LFTs within normal limits. Please see scanned sheet for progress note. (down time) MDM - Abdominal Pain Lab Data Result diagrams: 10/18/21 10:41 10/18/21 10:41 Labs: Lab Results 10/18/21 10/18/21 10/18/21 Range/Units 10:41 10:41 22:51 WBC 10.0 (4.8-10.8) X10*3/uL RBC 4.83 (4.20-5.50) X10*6/uL Hgb 14.1 (12.0-16.0) g/dl Hct 42.6 (37.0-47.0) % MCV 88.2 (80.0-98.0) fL MCH 29.2 (27.0-33.0) pg MCHC 33.1 (31.0-35.0) g/dl RDW 12.7 (11.0-16.0) % Plt Count 414 H D (160-400) X10*3/uL MPV 9.3 L (9.4-12.3) fL Immature Gran % (Auto) 0.4 (0.0-0.4) % Neut % (Auto) 72.7 (45-73) % Lymph % (Auto) 14.2 L (20-40) % Todd % (Auto) 10.1 (2-11) % Eos % (Auto) 1.3 (0-4) % Baso % (Auto) 1.3 (0-2) % Lymph # (Auto) 1.4 (1.2-4.9) X10*3/uL Todd # (Auto) 1.0 (0.1-1.2) X10*3/uL Eos # (Auto) 0.1 (0.0-0.4) X10*3/uL Baso # (Auto) 0.1 (0.0-0.2) X10*3/uL Abs Immat Gran (auto) 0.04 H (0.00-0.03) X10*3/uL Absolute Neuts (auto) 7.3 (2.0-8.3) x10*3/uL Absolute Nucleated RBC 0.000 (0.0-0.012) X10*3/uL Nucleated RBC % (auto) 0.0 (0.0-0.2) /100WBC Sodium 133 L (135-145) mmol/L Potassium 5.3 H (3.3-5.1) mmol/L Chloride 95 L (96-108) mmol/L Carbon Dioxide 26 (22-29) mmol/L Anion Gap 17 (12-20) BUN 18 H (9-16) mg/dL Creatinine 1.33 (0.5-1.4) mg/dL Estim Creat Clear Calc 25.5 Estimated GFR 38 Random Glucose 139 H (60-115) mg/dL Calcium 9.7 (8.4-10.2) mg/dL Total Bilirubin 0.6 (0.0-1.0) mg/dL Direct Bilirubin 0.3 (0.0-0.5) mg/dL AST 31 (5-31) U/L ALT 16 (0-31) U/L Alkaline Phosphatase 87 D (39-117) U/L Total Protein 7.2 (6.5-8.0) g/dL Albumin 4.1 (3.5-5.0) g/dL Lipase 48 (8-78) U/L Urine Color Urine Appearance Urine pH (5.0-8.0) Ur Specific [place] (1.005-1.025) Urine Protein (Neg-Trace) mg/dL Urine Glucose (UA) (Negative) mg/dL Urine Ketones (Negative) mg/dL Urine Blood (Negative) Urine Nitrite (Negative) Ur Leukocyte Esterase (Negative) Urine RBC (0-2) /HPF Urine WBC (0-5) /HPF Ur Squamous Epith Cells (0-2) /HPF Urine Bacteria (None Seen) Hyaline Casts (0-2) /LPF COVID-19 (KARUNA) Negative (Negative) COVID-19 Clin Com See Note 10/18/21 Range/Units 22:51 WBC (4.8-10.8) X10*3/uL RBC (4.20-5.50) X10*6/uL Hgb (12.0-16.0) g/dl Hct (37.0-47.0) % MCV (80.0-98.0) fL MCH (27.0-33.0) pg MCHC (31.0-35.0) g/dl RDW (11.0-16.0) % Plt Count (160-400) X10*3/uL MPV (9.4-12.3) fL Immature Gran % (Auto) (0.0-0.4) % Neut % (Auto) (45-73) % Lymph % (Auto) (20-40) % Todd % (Auto) (2-11) % Eos % (Auto) (0-4) % Baso % (Auto) (0-2) % Lymph # (Auto) (1.2-4.9) X10*3/uL Todd # (Auto) (0.1-1.2) X10*3/uL Eos # (Auto) (0.0-0.4) X10*3/uL Baso # (Auto) (0.0-0.2) X10*3/uL Abs Immat Gran (auto) (0.00-0.03) X10*3/uL Absolute Neuts (auto) (2.0-8.3) x10*3/uL Absolute Nucleated RBC (0.0-0.012) X10*3/uL Nucleated RBC % (auto) (0.0-0.2) /100WBC Sodium (135-145) mmol/L Potassium (3.3-5.1) mmol/L Chloride (96-108) mmol/L Carbon Dioxide (22-29) mmol/L Anion Gap (12-20) BUN (9-16) mg/dL Creatinine (0.5-1.4) mg/dL Estim Creat Clear Calc Estimated GFR Random Glucose (60-115) mg/dL Calcium (8.4-10.2) mg/dL Total Bilirubin (0.0-1.0) mg/dL Direct Bilirubin (0.0-0.5) mg/dL AST (5-31) U/L ALT (0-31) U/L Alkaline Phosphatase (39-117) U/L Total Protein (6.5-8.0) g/dL Albumin (3.5-5.0) g/dL Lipase (8-78) U/L Urine Color Yellow Urine Appearance Clear Urine pH 5.5 (5.0-8.0) Ur Specific [place] 1.020 (1.005-1.025) Urine Protein Trace (Neg-Trace) mg/dL Urine Glucose (UA) Negative (Negative) mg/dL Urine Ketones Trace (Negative) mg/dL Urine Blood Negative (Negative) Urine Nitrite Negative (Negative) Ur Leukocyte Esterase Moderate (2+) H (Negative) Urine RBC 0-2 (0-2) /HPF Urine WBC 11-20 H (0-5) /HPF Ur Squamous Epith Cells 3-5 (0-2) /HPF Urine Bacteria Trace (None Seen) Hyaline Casts 0-2 (0-2) /LPF COVID-19 (KARUNA) (Negative) COVID-19 Clin Com Imaging Data KUB: Radiologist's impression: FINDINGS: Bowel gas pattern is normal. No dilated bowel loops. There is a mild amount of fecal material in the colon. No fecal impaction in the rectum. No radiographic findings to suggest presence of constipation. No pneumoperitoneum is seen on this radiograph obtained with the patient in supine position. Chronic multilevel degenerative arthropathy and mild levoscoliosis of the visualized lower thoracic and lumbar spine. Scattered atherosclerotic calcification of aorta and iliac arteries. XR/XR KUB IMPRESSION: No acute radiographic abnormalities in the abdomen. No findings to suggest presence of constipation or bowel obstruction. ? US - abdomen: Radiologist's impression: FINDINGS: Per technologist note, exam performance was limited due to inability of patient to breath-hold. The gallbladder is physiologically distended. Gallbladder wall thickness is within normal limits, measuring 0.2 cm. A single gallstone is identified, which does not appear impacted, along with some sludge. No right upper quadrant tenderness was reported during the exam. Common bile duct measures 0.6 cm in diameter. US/US abdomen limited IMPRESSION: Cholelithiasis without additional findings of acute cholecystitis. CT scan - abdomen: Radiologist's impression: FINDINGS: LUNG BASES: Subpleural reticulation with suspected nonspecific fibrosis.? LIVER, GALLBLADDER, AND BILIARY TREE: The liver is normal in size, shape, and attenuation. No focal hepatic lesion or biliary ductal dilatation is identified. There is suggestion of a small proximal gallstone. No appreciable pericholecystic inflammation. PANCREAS: Unremarkable.? SPLEEN: Unremarkable.? ADRENAL GLANDS: Unremarkable.? KIDNEYS AND URETERS: The kidneys are normal in size, shape, and attenuation. No hydronephrosis, hydroureter, or calculi seen. BLADDER: Unremarkable.? GASTROINTESTINAL TRACT: No evidence of bowel obstruction or significant wall thickening. The appendix is unremarkable. No free fluid or free air is seen. ABDOMINAL WALL: No significant hernia is appreciated.? LYMPH NODES: Normal. VASCULAR: There is atherosclerotic calcification along the aorta. PELVIC VISCERA: Unremarkable.? OSSEOUS STRUCTURES: Degenerative changes are noted in the spine.? CT/CT abdomen pelvis wo con IMPRESSION: Suggestion of cholelithiasis, without appreciable pericholecystic inflammation. If clinically warranted, this may be further assessed with right upper quadrant ultrasound.? Discharge Plan Discharge Clinical Impression: Abdominal pain Patient Disposition: Home, Self-Care Prescriptions: No Action amlodipine 5 mg tablet 1 tab PO DAILY simvastatin 20 mg tablet 1 tab PO BEDTIME metoprolol tartrate 25 mg tablet 0.5 tab PO BID Interventions: ED Discharge Assessment Last Done: 10/19/21 03:00 Discharge Date/Time: 10/19/21 03:00
[2021-10-18] MEDS: oxyCODONE HCl Immed Release 5 MG TABLET PO (22:40)
--- NOTE | 2021-10-18 22:48 | PC.NURSE ---
PATIENT WAS ASSISTED ON BED TEJEDA ,VOID SMALL AMOUNT OF URINE .
[2021-10-18 22:59] LABS: Appearance Urine Clear; Color Urine Yellow; Glucose Urine UA Negative (Negative); Leukocyte Esterase Urine Moderate (2+) (Negative); Nitrite Urine Negative (Negative); PH 5.5 (5.0-8.0); Urine Blood Negative (Negative); Urine Ketones Trace mg/dL (Negative); Urine Protein Trace mg/dL (Neg-Trace)
[2021-10-18 23:13] LABS: COVID-19 Test Negative (Negative)
[2021-10-18 23:16] LABS: Bacteria Urine Trace (None Seen); Hyaline Casts Urine 0-2 /LPF (0-2); RBC Urine 0-2 /HPF (0-2); UACC Culture Trigger YES
[2021-10-18 23:25] VITALS: BP 139/66; PULSE 81; RESP 16; TEMP 37.1; O2SAT 94
== END 2021-10-19 03:00 | disposition home or self-care (01) ==
PROVIDERS: Emergency Provider Emergency Medicine; PCP Internal Medicine
DX: R10.11 Right upper quadrant pain (principal); Z79.899 Other long term (current) drug therapy; Z20.822 Contact with and (suspected) exposure to COVID-19
CPT/HCPCS: 36415; 74018; 74176; 76705; 80048; 80076; 81001; 83690; 85025; 87086; 87635; 99283; 99284

== ENCOUNTER → 2021-10-26 12:50 | Outpatient (BNVA) | payer MEDICARE, SELFPAY | PROVIDERS: PCP Internal Medicine; Visit Provider Surgery | DX: K80.50 Calculus of bile duct without cholangitis or cholecystitis without obstruction (principal); K80.20 Calculus of gallbladder without cholecystitis without obstruction | CPT/HCPCS: 99202 ==

== ENCOUNTER → 2021-10-31 08:19 | Outpatient (REF) | payer MEDICARE, SELFPAY ==
--- NOTE | ~2021-10-31 | NM_ITS ---
BILIARY TRACT IMAGING STUDY CLINICAL INDICATION: Right upper quadrant pain. History of cholelithiasis. PROCEDURE: Scintillation camera images were obtained over the abdomen for an observation of 60 minutes following the intravenous administration of 5 millicuries technetium 99m mebrofenin. COMPARISON: Abdominal ultrasound 09/29/2021. FINDINGS: There is good concentration of activity in the liver by 5 minutes post injection. Biliary activity is well visualized by 10-15 minutes, and there is good visualization of small bowel activity by 20 minutes. The gallbladder is well visualized by 20 minutes. NM/NM hepatobiliary wo pharm IMPRESSION: Normal biliary scan. Visualization of the gallbladder is evidence of a patent cystic duct and strong evidence against the diagnosis of acute cholecystitis. The common bile duct is patent. Liver function appears normal.
== END ==
LOC: HO.NUCMED 08:19
PROVIDERS: PCP Internal Medicine; Visit Provider Internal Medicine
DX: R10.11 Right upper quadrant pain (principal)
CPT/HCPCS: 78226; A9537

== ENCOUNTER 2021-12-21 11:26 | Outpatient (REF) | payer MEDICARE, SELFPAY ==
--- NOTE | ~2021-12-21 | MM_ITS ---
EXAMINATION: MM SCREENING DIGITAL BREAST TOMOSYNTHESIS, BILATERAL CLINICAL INFORMATION: Screening. Asymptomatic. Status post right lumpectomy. COMPARISON: Mammography: December 20, 2020 and studies dating back to May 05, 2013 TECHNIQUE: Digital breast tomosynthesis is performed in both the craniocaudal and mediolateral oblique views along with computer-aided detection (CAD). Synthesized 2D images are generated from the tomosynthesis. FINDINGS: There are scattered areas of fibroglandular density (ACR BI-RADS breast composition Category b). There are no new significant masses, abnormal calcifications, or other abnormalities. Postsurgical change from previous right breast lumpectomy again seen. MM/MM tomosynthesis screening BI IMPRESSION: No significant changes from prior exam. ASSESSMENT: BI-RADS 2: Benign RECOMMENDATION: Routine annual mammography screening. This patient's information was entered into a reminder system with a target due date for their next mammogram.
== END 2021-12-21 11:27 | disposition home or self-care (01) ==
LOC: HO.MAMMO 11:26
PROVIDERS: PCP Internal Medicine; Visit Provider Internal Medicine
DX: Z12.31 Encounter for screening mammogram for malignant neoplasm of breast (principal)
CPT/HCPCS: 77063; 77067

== ENCOUNTER → 2022-03-06 13:58 | Outpatient (BNVA) | payer MEDICARE, SELFPAY | PROVIDERS: PCP Internal Medicine; Referring Provider Internal Medicine Medical Oncology; Visit Provider Surgery | DX: L98.9 Disorder of the skin and subcutaneous tissue, unspecified (principal); Z85.3 Personal history of malignant neoplasm of breast | CPT/HCPCS: 99212 ==

== ENCOUNTER 2022-03-22 09:00 | Outpatient (REF) | payer MEDICARE, SELFPAY | END 2022-03-22 09:01 | disposition home or self-care (01) | LOC: HO.LNP 09:00 | PROVIDERS: PCP Internal Medicine; Visit Provider Surgery | DX: C44.529 Squamous cell carcinoma of skin of other part of trunk (principal) | CPT/HCPCS: 11402; 11602; 88305 ==

== ENCOUNTER → 2022-03-30 11:17 | Outpatient (BNVA) | payer MEDICARE, SELFPAY | PROVIDERS: PCP Internal Medicine; Referring Provider Internal Medicine; Visit Provider Surgery | DX: Z13.89 Encounter for screening for other disorder (principal) | CPT/HCPCS: 99212 ==

== ENCOUNTER → 2022-07-06 11:16 | Outpatient (BNVA) | payer MEDICARE, SELFPAY | PROVIDERS: PCP Internal Medicine; Visit Provider Surgery | DX: C44.92 Squamous cell carcinoma of skin, unspecified (principal) | CPT/HCPCS: 99212 ==

== ENCOUNTER 2022-07-25 07:36 | Outpatient (REF) | payer MEDICARE, SELFPAY ==
[2022-07-25 11:05] LABS: MANUAL DIFF FLAG NO
[2022-07-25 11:23] LABS: Appearance Urine Clear; Color Urine Yellow; Glucose Urine UA Negative (Negative); Leukocyte Esterase Urine Negative (Negative); Nitrite Urine Negative (Negative); Urine Blood Negative (Negative); Urine Ketones Negative (Negative); Urine Protein Negative (Neg-Trace)
[2022-07-25 11:40] LABS: Basophils Absolute Auto 0.1 X10*3/uL (0.0-0.2); Basophils Percent Auto 1.4 % (0-2); Eosinophils Absolute Auto 1.1 X10*3/uL (0.0-0.4); Eosinophils Percent Auto 12.2 % (0-4); Hematocrit 41.6 % (37.0-47.0); Hemoglobin 13.1 g/dl (12.0-16.0); Imm Gran Abs Auto 0.02 X10*3/uL (0.00-0.03); Imm Gran Pct Auto 0.2 % (0.0-0.4); Lymphocytes Absolute Auto 2.4 X10*3/uL (1.2-4.9); Lymphocytes Percent Auto 27.1 % (20-40); Mean Corpuscular HGB Conc 31.5 g/dl (31.0-35.0); Mean Corpuscular Volume 92.2 fL (80.0-98.0); Mean Platelet Volume 10.7 fL (9.4-12.3); Monocytes Absolute Auto 0.8 X10*3/uL (0.1-1.2); Monocytes Percent Auto 9.5 % (2-11); Neutrophils Absolute Auto 4.3 x10*3/uL (2.0-8.3); Neutrophils Percent Auto 49.6 % (45-73); Platelet Count 344 X10*3/uL (160-400); Red Blood Count 4.51 X10*6/uL (4.20-5.50); Red Cell Distribution Width 13.4 % (11.0-16.0); White Blood Count 8.8 X10*3/uL (4.8-10.8)
[2022-07-25 11:58] LABS: Alanine Aminotransferase 11 U/L (0-31); Albumin Level 3.9 g/dL (3.5-5.0); Alkaline Phosphatase 67 U/L (39-117); Anion Gap 11 (12-20); Aspartate Amino Transferase 24 U/L (5-31); Bilirubin Total 0.7 mg/dL (0.0-1.0); Blood Urea Nitrogen 23 mg/dL (9-16); C Reactive Protein 0.11 mg/dL (< or = 0.50); Calcium 9.6 mg/dL (8.4-10.2); Carbon Dioxide 26 mmol/L (22-29); Chloride 109 mmol/L (96-108); Cholesterol 173 mg/dL; Estimated Glomerular Filt Rate 40; Glucose Random 91 mg/dL (60-115); HDL Cholesterol 52 mg/dL; LDL Cholesterol Calculated 101 mg/dl; Potassium 4.3 mmol/L (3.3-5.1); Sodium 142 mmol/L (135-145); Thyroid Stimulating Hormone 2.23 uIU/mL (0.32-4.0); Total Protein 6.8 g/dL (6.5-8.0); Triglycerides 102 mg/dL
== END 2022-07-25 07:37 | disposition home or self-care (01) ==
LOC: HO.HMGCLDS 07:36
PROVIDERS: PCP Internal Medicine; Visit Provider Internal Medicine
DX: I12.9 Hypertensive chronic kidney disease with stage 1 through stage 4 chronic kidney disease, or unspecified chronic kidney disease (principal); N18.32 Chronic kidney disease, stage 3b; E78.00 Pure hypercholesterolemia, unspecified; Z85.3 Personal history of malignant neoplasm of breast
CPT/HCPCS: 36415; 80053; 80061; 81003; 84443; 85025; 86140

== ENCOUNTER 2022-12-27 11:01 | Outpatient (REF) | payer MEDICARE, SELFPAY ==
--- NOTE | ~2022-12-27 | MM_ITS ---
EXAMINATION: MM SCREENING DIGITAL BREAST TOMOSYNTHESIS, BILATERAL CLINICAL INFORMATION: Screening. Asymptomatic. This patient has a history of conservatively treated right breast cancer. COMPARISON: Mammography: This study is compared with prior exams dating back to 2017. TECHNIQUE: Digital breast tomosynthesis is performed in both the craniocaudal and mediolateral oblique views along with computer-aided detection (CAD). Synthesized 2D images are generated from the tomosynthesis. FINDINGS: There are scattered areas of fibroglandular density (ACR BI-RADS breast composition Category b). There are no significant masses, abnormal calcifications, or other abnormalities. There are postsurgical changes of the right breast from prior breast cancer surgery. There are no mammographic signs of malignancy in either breast. MM/MM tomosynthesis screening BI IMPRESSION: No mammographic evidence of malignancy. ASSESSMENT: BI-RADS BI-RADS 2 - Benign Findings RECOMMENDATION: Routine annual mammography screening. 1 year F/U This examination should not preclude the clinical evaluation of a suspicious palpable abnormality. This patient's information was entered into a reminder system with a target due date for their next mammogram.
== END 2022-12-27 11:02 | disposition home or self-care (01) ==
LOC: HO.MAMMO 11:01
PROVIDERS: PCP Internal Medicine; Visit Provider Internal Medicine
DX: Z12.31 Encounter for screening mammogram for malignant neoplasm of breast (principal)
CPT/HCPCS: 77063; 77067

== ENCOUNTER → 2022-12-27 11:15 | Outpatient (BNV) | payer MEDICARE, SELFPAY | PROVIDERS: PCP Internal Medicine; Visit Provider Radiology Diagnostic Radiology | DX: Z12.31 Encounter for screening mammogram for malignant neoplasm of breast (principal) | CPT/HCPCS: 77063; 77067 ==

== ENCOUNTER 2023-01-11 10:41 | Outpatient (AMB) | payer MEDICARE, SELFPAY ==
[2023-01-11 10:57] VITALS: BP 138/65; PULSE 66; O2SAT 94; BMI 27.9
--- NOTE | 2023-01-11 10:57 | A.OFFVIS_ITS ---
Intake Vital Signs 01/11/23 10:57 Height 5 ft Weight 142 lb 13.753 oz BMI 27.9 BP 138/65 Blood Pressure Location Lt brachial Position Sitting Pulse 66 Pulse Source Pulse Oximeter Pulse Oximetry (%) 94 Oxygen Delivery Method Room Air Intake Visit Reasons: 6 mth lesion left clavicle Intake Note: Pt presents to the office today for a 6 month follow up for lesion on left clavicle. Pt states she is feeling good and her lesion is looking better. Pt denies any concerns at this time. Allergies tetracycline [Tetracycline] Allergy (Mild, Verified 01/11/23 10:59) RASH seasonal Allergy (Unknown, Uncoded 01/11/23 10:59) Sneezing Medication List - Last Reconciled 01/14/23 by Tommie Calloway MD amlodipine 1 tab PO DAILY metoprolol tartrate 0.5 tabs PO BID omeprazole 20 mg PO DAILY simvastatin 1 tab PO BEDTIME HPI HPI Comments History of Present Illness Details 87-year-old female with previous history of right breast cancer, status post excision of a skin lesion of the right shoulder on 03/22/2022 as an office procedure. She tolerated the procedure well and remains asymptomatic at this time. 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 Deep margins were clear. She was given the option of either close observation verses wider excision and agreed to close observation. She returns today for a 10 months follow-up examination. She denies any bleeding or discharge from the site. FORMERLY [facility], 1928–1983 Medical History Breast cancer Arthritis Elevated cholesterol GERD (gastroesophageal reflux disease) HTN (hypertension) Cataract (lens) fragments in eye following cataract surgery, bilateral Surgical History H/O colonoscopy Status post biopsy of skin History of appendectomy H/O lumpectomy Family History Mother Myeloma Maternal Grandmother Diabetes Other No family history of cancer Social History Household Members: Spouse Housing: Condominium Are you a primary pet care attendant to a significant other at home: No Do you presently have visiting nurse or other home services: No Alcohol intake: former Patient Tobacco Use Status: Never used Tobacco service: No Current occupational status: retired Review of Systems Const All systems reviewed & are unremarkable except as noted in HPI and below Reports anorexia, Denies chills, Denies fever(s), Reports lethargy and Reports poor appetite Card Denies chest pain, Denies irregular heart rhythm and Denies dyspnea Resp Denies chest congestion, Denies cough, Denies hemoptysis and Denies dyspnea GI Reports as per HPI, Denies abdominal pain, Denies bloating, Denies constipation, Denies diarrhea, Reports nausea and Denies vomiting Musc Reports back pain and Reports myalgias Skin/Breast Reports as per HPI Physical Exam Vital Signs: Last Vital Signs Pulse 66 01/11/23 10:57 BP 138/65 01/11/23 10:57 Pulse Ox 94 01/11/23 10:57 Oxygen Delivery Method Room Air 01/11/23 10:57 BMI result Body Mass Index 27.9 Const General: comfortable and no acute distress Nutritional Appearance: well nourished Chest Other: Excision site in the right anterior chest is clean, dry, and intact without evidence of tumor regrowth. Wounds are well healed. 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 There is no evidence of recurrent disease at this time. I recommended follow-up p.r.n.. Coding Level of Care Code Est Pt Level 3 (10869) Diagnoses Squamous cell carcinoma of skin C44.92
== END 2023-01-11 13:27 | disposition home or self-care (01) ==
PROVIDERS: PCP Internal Medicine; Visit Provider Surgery
DX: C44.92 Squamous cell carcinoma of skin, unspecified (principal)
CPT/HCPCS: 99213

== ENCOUNTER → 2023-01-11 10:41 | Outpatient (BNVA) | payer MEDICARE, SELFPAY | PROVIDERS: PCP Internal Medicine; Visit Provider Surgery | DX: C44.92 Squamous cell carcinoma of skin, unspecified (principal) | CPT/HCPCS: 99212 ==

== ENCOUNTER 2023-07-02 08:11 | Outpatient (REF) | payer MEDICARE, SELFPAY ==
[2023-07-02 10:21] LABS: MANUAL DIFF FLAG NO
[2023-07-02 10:32] LABS: Basophils Absolute Auto 0.1 X10*3/uL (0.0-0.2); Basophils Percent Auto 1.4 % (0-2); Eosinophils Absolute Auto 0.7 X10*3/uL (0.0-0.4); Eosinophils Percent Auto 7.8 % (0-4); Hematocrit 41.6 % (37.0-47.0); Hemoglobin 13.5 g/dl (12.0-16.0); Imm Gran Abs Auto 0.02 X10*3/uL (0.00-0.03); Imm Gran Pct Auto 0.2 % (0.0-0.4); Lymphocytes Absolute Auto 2.3 X10*3/uL (1.2-4.9); Lymphocytes Percent Auto 26.3 % (20-40); Mean Corpuscular HGB Conc 32.5 g/dl (31.0-35.0); Mean Corpuscular Hemoglobin 29.3 pg (27.0-33.0); Mean Corpuscular Volume 90.2 fL (80.0-98.0); Mean Platelet Volume 10.7 fL (9.4-12.3); Monocytes Absolute Auto 0.8 X10*3/uL (0.1-1.2); Monocytes Percent Auto 9.4 % (2-11); Neutrophils Absolute Auto 4.9 x10*3/uL (2.0-8.3); Neutrophils Percent Auto 54.9 % (45-73); Platelet Count 361 X10*3/uL (160-400); Red Blood Count 4.61 X10*6/uL (4.20-5.50); Red Cell Distribution Width 13.9 % (11.0-16.0); White Blood Count 8.9 X10*3/uL (4.8-10.8)
[2023-07-02 10:44] LABS: Alanine Aminotransferase 16 U/L (0-31); Albumin Level 4.1 g/dL (3.5-5.0); Alkaline Phosphatase 64 U/L (39-117); Anion Gap 14 (12-20); Appearance Urine Clear; Aspartate Amino Transferase 33 U/L (5-31); Bilirubin Total 0.8 mg/dL (0.0-1.0); Blood Urea Nitrogen 16 mg/dL (9-16); Calcium 9.9 mg/dL (8.4-10.2); Carbon Dioxide 25 mmol/L (22-29); Chloride 105 mmol/L (96-108); Cholesterol 149 mg/dL (<200); Color Urine Yellow; Estimated Glomerular Filt Rate 43; Glucose Random 104 mg/dL (60-115); Glucose Urine UA Negative (Negative); HDL Cholesterol 58 mg/dL (>40); LDL Cholesterol Calculated 75 mg/dL (<100); Leukocyte Esterase Urine Negative (Negative); Nitrite Urine Negative (Negative); Sodium 140 mmol/L (135-145); Specific Gravity - Urine <= 1.005 (1.005-1.025); Total Protein 7.2 g/dL (6.5-8.0); Triglycerides 82 mg/dL (<150); Urine Blood Negative (Negative); Urine Ketones Negative (Negative); Urine Protein Negative (Neg-Trace)
[2023-07-02 11:01] LABS: Vitamin D 25-OH Total 39.6 ng/mL (>30)
== END 2023-07-02 08:12 | disposition home or self-care (01) ==
LOC: HO.HMGCLDS 08:11
PROVIDERS: PCP Internal Medicine; Visit Provider Internal Medicine
DX: I10 Essential (primary) hypertension (principal); E78.00 Pure hypercholesterolemia, unspecified; E55.9 Vitamin D deficiency, unspecified
CPT/HCPCS: 36415; 80053; 80061; 81003; 82306; 85025

== ENCOUNTER 2023-07-19 08:05 | Outpatient (AMB) | payer MEDICARE, SELFPAY ==
--- NOTE | 2023-07-19 08:07 | AM.OFFWIN_ITS ---
Intake Vital Signs 07/19/23 08:14 Weight 138 lb BP 120/74 Blood Pressure Location Rt brachial Position Sitting Pulse 63 Pulse Source Pulse Oximeter Pulse Oximetry (%) 94 Oxygen Delivery Method Room Air Intake Visit Reasons: EST/uti (lobbby) Patient Tobacco Use Status: Never used Tobacco Allergies tetracycline [Tetracycline] Allergy (Mild, Verified 07/19/23 08:14) RASH seasonal Allergy (Unknown, Uncoded 07/19/23 08:14) Sneezing Medication List - Last Reconciled 07/19/23 by Ty Diaz MD amlodipine 1 tab PO DAILY metoprolol tartrate 0.5 tabs PO BID omeprazole 20 mg PO DAILY simvastatin 1 tab PO BEDTIME Do you need a note to return to daycare/school/sports/work: No HPI EST/uti (lobbby) HPI Details Patient is 88-year-old female came in today with a chief complaint of frequency of urination Patient says that she has been urinating more than usual since Saturday Especially at night There is also mild back pain There is no nausea vomiting no abdominal pain except discomfort pelvic area There is no fever no chills UA shows slightly positive blood I am treating her with Levaquin 250 mg once a day for 5 days Patient's labs were reviewed in the chart her GFR is 43 PFSH Medical History Breast cancer Arthritis Elevated cholesterol GERD (gastroesophageal reflux disease) HTN (hypertension) Cataract (lens) fragments in eye following cataract surgery, bilateral Surgical History H/O colonoscopy Status post biopsy of skin History of appendectomy H/O lumpectomy Family History Mother Myeloma Maternal Grandmother Diabetes Other No family history of cancer Social History Household Members: Spouse Housing: Condominium Are you a primary wound care technician to a significant other at home: No Do you presently have visiting nurse or other home services: No Alcohol intake: former Patient Tobacco Use Status: Never used Tobacco service: No Current occupational status: retired Review of Systems Const All systems reviewed & are unremarkable except as noted in HPI and below Physical Exam Vital Signs: Last Vital Signs Pulse 63 07/19/23 08:14 BP 120/74 07/19/23 08:14 Pulse Ox 94 07/19/23 08:14 Oxygen Delivery Method Room Air 07/19/23 08:14 Const General: no acute distress Orientation/consciousness: patient oriented x3 Eyes General: appearance normal, both eyes and all related structures Resp Effort & Inspection: normal respiratory effort and able to speak in complete sentences Auscultation: clear to auscultation bilaterally Cardio Other: S1 S2 Neuro General: patient oriented x3 Psych Mental Status: mental status grossly normal Results AMB Urinalysis, Automated UA Leukoctes 0 Talib/uL Last Edit by Shelbi Elizondo [facility]CM on 07/19/23 08:18 UA Nitrite Negative Last Edit by Shelbi Elizondo [facility] on 07/19/23 08:18 UA Urobilinogen 0.2 mg/dL Last Edit by Shelbi Elizondo CCM on 07/19/23 08:18 UA Protein 15 mg/dL Last Edit by Shelbi Elizondo [facility] on 07/19/23 08:18 UA pH 6.0 Last Edit by Shelbi Elizondo [facility] on 07/19/23 08:18 UA Blood 10 Nitesh/uL Last Edit by Shelbi Elizondo [facility] on 07/19/23 08:18 UA Specific [place] 1.015 Last Edit by Shelbi Elizondo CCM on 07/19/23 08:18 UA Ketone Positive Last Edit by Shelbi Elizondo [facility]CM on 07/19/23 08:18 UA Bilirubin 0 mg/dL Last Edit by Shelbi Elizondo [facility] on 07/19/23 08:18 UA Glucose 0 mg/dL Last Edit by Shelbi Elizondo [facility] on 07/19/23 08:18 Results Reviewed Results Reviewed: Laboratory Last Values Urine pH (Auto) 6.0 07/19/23 08:17 Specific [place] (Auto) 1.015 07/19/23 08:17 Urine Protein (Auto) 15 mg/dL 07/19/23 08:17 Glucose (UA)(Auto) 0 mg/dL 07/19/23 08:17 Urine Ketones (Auto) Positive 07/19/23 08:17 Urine Blood (Auto) 10 Nitesh/uL 07/19/23 08:17 Urine Nitrite (Auto) Negative 07/19/23 08:17 Urine Bilirubin (Auto) 0 mg/dL 07/19/23 08:17 Urine Urobilinogen (Auto) 0.2 mg/dL 07/19/23 08:17 Leukocyte Esterase (Auto) 0 Talib/uL 07/19/23 08:17 Assessment & Plan Assessment & Plan (1) Blood in urine: Code(s): R31.9 - Hematuria, unspecified Qualifiers: Hematuria type: other microscopic Qualified Code(s): R31.29 - Other microscopic hematuria (2) Nephropathy: Code(s): N28.9 - Disorder of kidney and ureter, unspecified Plan Patient is 88-year-old female came in today with a chief complaint of frequency of urination Patient says that she has been urinating more than usual since Saturday Especially at night There is also mild back pain There is no nausea vomiting no abdominal pain except discomfort pelvic area There is no fever no chills UA shows slightly positive blood I am treating her with Levaquin 250 mg once a day for 5 days Patient's labs were reviewed in the chart her GFR is 43 Orders: Orders AMB Urinalysis Automated Today Z13.9 - Encounter for screening, unspecified Medications: New levofloxacin 250 mg PO DAILY 5 days 5 tabs 0RF Coding Level of Care Code Est Pt Level 3 (85306) Diagnoses Other microscopic hematuria R31.29 Hematuria type: other microscopic Nephropathy N28.9
[2023-07-19 08:14] VITALS: BP 120/74; PULSE 63; O2SAT 94
== END 2023-07-19 09:05 | disposition home or self-care (01) ==
PROVIDERS: PCP Internal Medicine; Visit Provider Internal Medicine
DX: R31.29 Other microscopic hematuria (principal); N28.9 Disorder of kidney and ureter, unspecified
CPT/HCPCS: 81003; 99213

== ENCOUNTER 2023-07-26 15:18 | Emergency (ER) | payer MEDICARE, SELFPAY ==
--- NOTE | ~2023-07-26 | CT_ITS ---
EXAMINATION: CT ABDOMEN AND PELVIS WITHOUT CONTRAST CLINICAL INFORMATION: Lower abdominal pain. Hematuria. COMPARISON: CT scan abdomen pelvis October 18, 2021 TECHNIQUE: Multidetector volumetric imaging was performed from the superior aspect of the liver through the pubic symphysis. Sagittal and coronal reformatted images were obtained on the technologist's workstation. This CT examination was performed using dose optimization techniques as appropriate, variously including the following: *Automated exposure control *Adjustment of mA and/or kV according to patient size (this includes techniques or standardized protocols for targeted exams where dose is matched to indication/reason for exam; i.e. extremities or head) *Use of iterative reconstruction technique DLP: 465 mGy-cm FINDINGS: LUNG BASES: Subpleural reticular opacities at both lung bases with honeycombing. Findings consistent with interstitial lung disease. No acute airspace disease. No pleural effusion. LIVER, GALLBLADDER, AND BILIARY TREE: The liver is normal in size, shape, and attenuation. No focal hepatic lesion or biliary ductal dilatation is present. The gallbladder is unremarkable with no evidence of radiopaque gallstones, gallbladder wall thickening, or obvious pericholecystic inflammatory changes. PANCREAS: Unremarkable SPLEEN: Unremarkable. ADRENAL GLANDS: Unremarkable. KIDNEYS AND URETERS: The kidneys are normal in size, shape, and attenuation. No hydronephrosis, hydroureter, or calculi seen. No perinephric stranding. BLADDER: Unremarkable. GASTROINTESTINAL TRACT: The small and large bowel are unremarkable. The appendix is nonvisualized. No inflammation. ABDOMINAL WALL: No significant hernia is appreciated. LYMPH NODES: Normal. VASCULAR: Vascular calcifications in the abdomen and pelvis. No aneurysm of aorta. PELVIC VISCERA: Unremarkable. OSSEOUS STRUCTURES: Multilevel degenerative spondylosis of the spine. Compression deformity superior endplate of L1 with about 50% loss of height of the vertebrae. This is indeterminate for age. Likely chronic. No fracture line seen. CT/CT abdomen pelvis wo IV con IMPRESSION: 1. No acute abnormality CT scan abdomen pelvis. Normal kidneys, ureter and bladder. 2. Interstitial lung disease at lung bases. Fleischner guidelines were followed.
--- NOTE | ~2023-07-26 | XR_ITS ---
EXAMINATION: XR LUMBOSACRAL SPINE CLINICAL INFORMATION: Bilateral lumbar pain. COMPARISON: CT abdomen pelvis October 18, 2021 TECHNIQUE: Three views of the lumbosacral spine. FINDINGS: Anterior wedge compression deformity of L1 with about 50% loss of height of vertebrae. Compression is involving superior endplate. This is new since prior study October 18, 2021. Otherwise indeterminate for age. No fracture line seen. There is osteopenia. Mild levoscoliosis of lumbar spine. Multilevel advance degenerative spondylosis. Multilevel advanced disc height narrowing. Prominent vertebral endplate spurs. Multilevel facet joint arthrosis most significant at lumbosacral junction. Heavy vascular calcification of aorta and iliac arteries. There is no aneurysm. XR/XR lumbar spine 2-3V IMPRESSION: 1. Anterior wedge compression deformity of L1 with about 50% loss of height of vertebrae. This is new since prior study October 18, 2021. Otherwise indeterminate for age. 2. Advanced multilevel degenerative spondylosis spine.
[2023-07-26 15:32] VITALS: BP 144/55; PULSE 75; RESP 20; TEMP 36.7; O2SAT 96; BMI 26.0
[2023-07-26 16:21] LABS: MANUAL DIFF FLAG NO
[2023-07-26 16:24] LABS: Appearance Urine Cloudy; Color Urine Dark Yellow; Glucose Urine UA Negative (Negative); Leukocyte Esterase Urine Moderate (2+) (Negative); Nitrite Urine Negative (Negative); Specific Gravity - Urine 1.025 (1.005-1.025); UMIC TRIGGER UACC YES; Urine Blood Negative (Negative); Urine Ketones Trace mg/dL (Negative); Urine Protein 30 (1+) mg/dL (Neg-Trace)
[2023-07-26 16:25] LABS: Basophils Absolute Auto 0.1 X10*3/uL (0.0-0.2); Basophils Percent Auto 0.8 % (0-2); Eosinophils Absolute Auto 1.2 X10*3/uL (0.0-0.4); Eosinophils Percent Auto 8.1 % (0-4); Hematocrit 40.3 % (37.0-47.0); Hemoglobin 13.7 g/dl (12.0-16.0); Imm Gran Abs Auto 0.06 X10*3/uL (0.00-0.03); Imm Gran Pct Auto 0.4 % (0.0-0.4); Lymphocytes Absolute Auto 1.8 X10*3/uL (1.2-4.9); Lymphocytes Percent Auto 12.5 % (20-40); Mean Corpuscular Hemoglobin 30.1 pg (27.0-33.0); Mean Corpuscular Volume 88.6 fL (80.0-98.0); Monocytes Absolute Auto 1.4 X10*3/uL (0.1-1.2); Monocytes Percent Auto 9.9 % (2-11); Neutrophils Percent Auto 68.3 % (45-73); Platelet Count 465 X10*3/uL (160-400); Red Blood Count 4.55 X10*6/uL (4.20-5.50); Red Cell Distribution Width 13.5 % (11.0-16.0); White Blood Count 14.6 X10*3/uL (4.8-10.8)
[2023-07-26 16:41] LABS: Alanine Aminotransferase 23 U/L (0-31); Albumin Level 4.1 g/dL (3.5-5.0); Alkaline Phosphatase 74 U/L (39-117); Anion Gap 17 (12-20); Aspartate Amino Transferase 37 U/L (5-31); Bilirubin Total 0.6 mg/dL (0.0-1.0); Blood Urea Nitrogen 19 mg/dL (9-16); Calcium 9.9 mg/dL (8.4-10.2); Carbon Dioxide 22 mmol/L (22-29); Chloride 96 mmol/L (96-108); Creatinine Clr Calc Pharmacy 19.1; Estimated Glomerular Filt Rate 30; Glucose Random 103 mg/dL (60-115); Lipase 41 U/L (8-78); Potassium 5.5 mmol/L (3.3-5.1); Sodium 129 mmol/L (135-145); Total Protein 8.2 g/dL (6.5-8.0)
[2023-07-26 17:35] LABS: Bacteria Urine Trace (None Seen); Hyaline Casts Urine >20 /LPF (0-2); UACC Culture Trigger YES
--- NOTE | 2023-07-26 21:04 | ED.ABDPAIN ---
HPI - Abdominal Pain General Chief Complaint: Abdominal Pain Stated Complaint: stomach and back pain Time Seen by Provider: 07/26/23 21:03 Source: patient Mode of arrival: ambulatory Limitations: no limitations History of Present Illness ED Provider: Zoe Perkins PA-C HPI narrative: Year old female with history of gallstones, breast cancer, squamous cell skin cancer, history of appendectomy who presents to the ER for evaluation of lower abdominal pain and pelvic pain that wraps around to her back. Of note patient was recently seen on 07/18 by her primary care doctor for evaluation of urinary frequency. She had mild back pain at that time. Urinalysis showed slightly positive blood. She was started on Levaquin 250 mg x 5 days. She reports the antibiotics really have not helped her symptoms. She reports a constant pressure and pain in her suprapubic region. She is increased frequency at night, getting up to go about 5 times. She denies any blood in her urine. She denies any nausea, vomiting, other abdominal pain. No fever or chills. No flank pain. She does have chronic low back pain which is worse the last couple of days. MD elicited complaint: abdominal pain Pertinent past history: past UTI Onset (ago): day(s) Pain Consistency: constant Location: suprapubic Severity: moderate Quality: aching Radiation: back Migration to: no migration Exacerbating factors: other (nighttime, urination) Relieving factors: nothing Context: history of similar episodes Associated symptoms: denies other symptoms Related Data Home Medications ?Medication ?Instructions ?Recorded ?Confirmed amlodipine 5 mg tablet 1 tab PO DAILY 05/12/20 07/19/23 metoprolol tartrate 25 mg tablet 0.5 tab PO BID 05/12/20 07/19/23 simvastatin 20 mg tablet 1 tab PO BEDTIME 05/12/20 07/19/23 omeprazole 20 mg capsule,delayed 20 mg PO DAILY 10/26/21 07/19/23 release Previous Rx's ?Medication ?Instructions ?Recorded levofloxacin 250 mg tablet 250 mg PO DAILY 5 days #5 tabs 07/19/23 cefuroxime axetil 250 mg tablet 250 mg PO BID 7 days #14 tabs 07/26/23 Allergies Allergy/AdvReac Type Severity Reaction Status Date / Time tetracycline [Tetracycline] Allergy Mild RASH Verified 07/26/23 15:37 seasonal Allergy Unknown Sneezing Uncoded 07/19/23 08:14 Review of Systems Review of Systems Yes all other systems are reviewed and are negative [facility] Past Medical History Medical History Breast cancer Arthritis Elevated cholesterol GERD (gastroesophageal reflux disease) HTN (hypertension) Cataract (lens) fragments in eye following cataract surgery, bilateral Surgical History H/O colonoscopy Status post biopsy of skin History of appendectomy H/O lumpectomy Family History Family History Mother Myeloma Maternal Grandmother Diabetes Other No family history of cancer Social History Social History Household Members: [facility] Are you a primary family member caretaker to a significant other at home: No Do you presently have visiting nurse or other home services: No Alcohol intake: former Patient Tobacco Use Status: Never used Tobacco Smoked in Last 30 Days: No Use of substances other than those prescribed or required for medical reasons: No Advance Directives: No Advance Directives Information Provided: No Do you have a plan to hurt others: No Plan service: No Current occupational status: retired Physical Exam ED Vital Signs: Vital Signs - 24 hr 07/26/23 15:32 07/26/23 21:44 Temperature 98.0 F 98.1 F Pulse Rate 75 81 Respiratory Rate 20 20 Blood Pressure 144/55 H 150/66 H Pulse Oximetry 96 97 Oxygen Delivery Method Room Air Room Air BMI result Body Mass Index 26.0 Appearance: Alert. Oriented X3. No acute distress. Head: normocephalic, atraumatic. Eyes: Pupils equal, round and reactive to light. ENT: Pharynx normal. No tonsillar swelling or exudate. Neck: Normal inspection. Neck supple. CVS: Normal heart rate and rhythm. Pulses normal. Respiratory: No respiratory distress. Breath sounds normal. Abdomen: Soft with lower abdominal tenderness in the suprapubic region, left lower quadrant and right lower quadrant. No rebound or guarding. Normal active +BS x4. No CVA tenderness bilaterally Skin: Skin warm and dry. Normal skin color. poor skin turgor. No rashes. Extremities: No lower extremity edema. No joint swelling. Neuro/psych: Oriented X 3. No motor deficit. No sensory deficit. CN II-XII intact. Normal speech and cognition. Medical Decision Making Medical Decision Making [facility] Narrative: 88-year-old female presenting to the ER for evaluation of lower abdominal pain, suprapubic pain, increased urinary frequency despite being on Levaquin x5 days for a possible UTI. On arrival to the ER patient's vital signs are stable, no fever or tachycardia. Her lab workup is revealing for white blood cell count of 14.6. She has a mild RHONDA with mild hyponatremia and hyperkalemia. Likely volume depletion. IV was established and patient was given IV fluids and IV Rocephin. Her urinalysis is still consistent with infection with moderate leukocyte esterase. She has not septic at this time. Patient was given 2 L of fluid, IV Rocephin. CT scan was performed and not show any acute abnormalities. She is feeling better. Repeat chemistry shows improvement in her renal function, potassium and sodium. At this time he is comfortable with discharge home with oral antibiotics. Differential Diagnosis Differential Diagnoses: The differential diagnosis associated with the presentation includes Simple UTI, complicated UTI, pyelonephritis, kidney stone, diverticulitis, colitis Admission/Observation Consideration of admission/observation: Escalation of care including admission/observation considered Lab Data [facility] Lab Attestation statement: I reviewed the patient's lab results. Leukocytosis, mild RHONDA with mild hyponatremia and mild hyperkalemia 07/26/23 16:16 07/26/23 23:52 Labs: Lab Results 07/26/23 07/26/23 Range/Units 16:16 23:52 WBC 14.6 H (4.8-10.8) X10*3/uL RBC 4.55 (4.20-5.50) X10*6/uL Hgb 13.7 (12.0-16.0) g/dl Hct 40.3 (37.0-47.0) % MCV 88.6 (80.0-98.0) fL MCH 30.1 (27.0-33.0) pg MCHC 34.0 (31.0-35.0) g/dl RDW 13.5 (11.0-16.0) % Plt Count 465 H D (160-400) X10*3/uL MPV 9.0 L (9.4-12.3) fL Immature Gran % (Auto) 0.4 (0.0-0.4) % Neut % (Auto) 68.3 (45-73) % Lymph % (Auto) 12.5 L (20-40) % [place] % (Auto) 9.9 (2-11) % Eos % (Auto) 8.1 H (0-4) % Baso % (Auto) 0.8 (0-2) % Lymph # (Auto) 1.8 (1.2-4.9) X10*3/uL [place] # (Auto) 1.4 H (0.1-1.2) X10*3/uL Eos # (Auto) 1.2 H (0.0-0.4) X10*3/uL Baso # (Auto) 0.1 (0.0-0.2) X10*3/uL Abs Immat Gran (auto) 0.06 H (0.00-0.03) X10*3/uL Absolute Neuts (auto) 10.0 H (2.0-8.3) x10*3/uL Absolute Nucleated RBC 0.000 (0.0-0.012) X10*3/uL Nucleated RBC % (auto) 0.0 (0.0-0.2) /100WBC Sodium 129 L 133 L (135-145) mmol/L Potassium 5.5 H D 4.2 D (3.3-5.1) mmol/L Chloride 96 103 (96-108) mmol/L Carbon Dioxide 22 23 (22-29) mmol/L Anion Gap 17 11 L (12-20) BUN 19 H 17 H (9-16) mg/dL Creatinine 1.62 H 1.16 (0.5-1.4) mg/dL Estim Creat Clear Calc 19.1 26.7 Estimated GFR 30 44 Random Glucose 103 72 (60-115) mg/dL Calcium 9.9 8.1 L D (8.4-10.2) mg/dL Magnesium 2.0 (1.6-2.6) mg/dL Total Bilirubin 0.6 (0.0-1.0) mg/dL AST 37 H (5-31) U/L ALT 23 (0-31) U/L Alkaline Phosphatase 74 (39-117) U/L Total Protein 8.2 H (6.5-8.0) g/dL Albumin 4.1 (3.5-5.0) g/dL Lipase 41 (8-78) U/L Urine Color Dark Yellow Urine Appearance Cloudy Urine pH 5.0 (5.0-9.0) Ur Specific [place] 1.025 (1.005-1.025) Urine Protein 30 (1+) H (Neg-Trace) mg/dL Urine Glucose (UA) Negative (Negative) mg/dL Urine Ketones Trace (Negative) mg/dL Urine Blood Negative (Negative) Urine Nitrite Negative (Negative) Ur Leukocyte Esterase Moderate (2+) H (Negative) Urine RBC 3-5 H (0-2) /HPF Urine WBC 11-20 (0-5) /HPF Ur Squamous Epith Cells 3-5 (0-2) /HPF Urine Bacteria Trace (None Seen) Hyaline Casts >20 (0-2) /LPF Independent Interpretation I performed an independent interpretation of an: CT Scan Interpretation: No visible stranding around the kidneys, no visible ureteral stones or hydronephrosis Radiology Impression Discussion of test interpretation with radiology: I have reviewed the radiologist's reading. Radiologist Impression: EXAMINATION: CT ABDOMEN AND PELVIS WITHOUT CONTRAST CLINICAL INFORMATION: Lower abdominal pain. Hematuria. COMPARISON: CT scan abdomen pelvis October 18, 2021 TECHNIQUE: Multidetector volumetric imaging was performed from the superior aspect of the liver through the pubic symphysis. Sagittal and coronal reformatted images were obtained on the technologist's workstation. This CT examination was performed using dose optimization techniques as appropriate, variously including the following: *Automated exposure control *Adjustment of mA and/or kV according to patient size (this includes techniques or standardized protocols for targeted exams where dose is matched to indication/reason for exam; i.e. extremities or head) *Use of iterative reconstruction technique DLP: 465 mGy-cm FINDINGS: LUNG BASES: Subpleural reticular opacities at both lung bases with honeycombing. Findings consistent with interstitial lung disease. No acute airspace disease. No pleural effusion. LIVER, GALLBLADDER, AND BILIARY TREE: The liver is normal in size, shape, and attenuation. No focal hepatic lesion or biliary ductal dilatation is present. The gallbladder is unremarkable with no evidence of radiopaque gallstones, gallbladder wall thickening, or obvious pericholecystic inflammatory changes. PANCREAS: Unremarkable SPLEEN: Unremarkable. ADRENAL GLANDS: Unremarkable. KIDNEYS AND URETERS: The kidneys are normal in size, shape, and attenuation. No hydronephrosis, hydroureter, or calculi seen. No perinephric stranding. BLADDER: Unremarkable. GASTROINTESTINAL TRACT: The small and large bowel are unremarkable. The appendix is nonvisualized. No inflammation. ABDOMINAL WALL: No significant hernia is appreciated. LYMPH NODES: Normal. VASCULAR: Vascular calcifications in the abdomen and pelvis. No aneurysm of aorta. PELVIC VISCERA: Unremarkable. OSSEOUS STRUCTURES: Multilevel degenerative spondylosis of the spine. Compression deformity superior endplate of L1 with about 50% loss of height of the vertebrae. This is indeterminate for age. Likely chronic. No fracture line seen. CT/CT abdomen pelvis wo IV con IMPRESSION: 1. No acute abnormality CT scan abdomen pelvis. Normal kidneys, ureter and bladder. 2. Interstitial lung disease at lung bases. Independent Historian Clinical information obtained from an independent historian. History obtained from or confirmed by: Other (Adult daughter at the bedside) External Record Review External record reviewed: Office record, Outpatient record, Prior outpatient labs and Prior outpatient radiology Prescription Management I considered prescription management with: Pain Medication and Antibiotic Medications Administered Discontinued Medications Generic Name Dose Route Start Last Admin Trade Name Freq PRN Reason Stop Dose Admin Acetaminophen 975 mg 07/26/23 21:11 07/26/23 21:34 Acetaminophen 325 Mg Tablet PO 07/26/23 21:12 975 mg ONCE ONE Administration Sodium Chloride 1,000 mls @ 999 mls/hr 07/26/23 21:15 07/26/23 21:36 Ns IVCONT 07/26/23 22:15 999 mls/hr .Q1H1M CHACE Administration Ceftriaxone Sodium 1 gm/ 50 mls @ 100 mls/hr 07/26/23 21:11 07/26/23 22:41 Sodium Chloride IV 07/26/23 21:40 Infused ONCE ONE Infusion Sodium Chloride 1,000 mls @ 999 mls/hr 07/26/23 23:00 07/26/23 22:59 Ns IV 07/27/23 00:00 999 mls/hr .Q1H1M CHACE Administration Phenazopyridine HCl 100 mg 07/26/23 21:11 07/26/23 21:34 Phenazopyridine Hcl 100 Mg Tablet PO 07/26/23 21:12 100 mg ONCE ONE Administration Critical Care Time Critical Care Time Critical Care Time: Yes Total Critical Care Time: 39 Attestation: I have personally provided critical care time exclusive of time spent on separately billable procedures. Time includes review of lab data, radiology results, bedside re-evaluation, re-evaluation of lab work and monitoring for potential decompensation. Intervention performed as documented. Discharge Plan Discharge Clinical Impression: Acute UTI, RHONDA (acute kidney injury) Compression fracture of lumbar vertebra Qualifiers: Encounter type: initial encounter Lumbar vertebra fracture level: L1 Qualified Code(s): S32.010A - Wedge compression fracture of first lumbar vertebra, initial encounter for closed fracture Patient Disposition: Home, Self-Care Instructions: Urinary Tract Infection in Older Adults (ED) Additional Instructions: CT scan did not show any acute findings. Your urine test still showed infection. Your given 1 dose of IV antibiotics while in the emergency department. Your due to start oral antibiotics tomorrow morning. Take these for 1 week, 2 times per day. Complete the entire course and do not miss any doses. Rest and drink plenty of fluids, make sure you are staying hydrated. Follow-up with your primary care doctor. If you develop new or worsening symptoms call 911 or come back to the ER for further evaluation. Prescriptions: New cefuroxime axetil 250 mg tablet 250 mg PO BID 7 Days Qty: 14 0RF No Action amlodipine 5 mg tablet 1 tab PO DAILY simvastatin 20 mg tablet 1 tab PO BEDTIME metoprolol tartrate 25 mg tablet 0.5 tab PO BID levofloxacin 250 mg tablet 250 mg PO DAILY 5 Days Qty: 5 0RF omeprazole 20 mg capsule,delayed release(DR/EC) 20 mg PO DAILY Referrals: Augustine Chen MD [Primary Care Provider] - Print Language: Jordanian
[2023-07-26] MEDS: Acetaminophen 325 MG TABLET 975 MG PO (21:34)
[2023-07-26] MEDS: Phenazopyridine HCL 100 MG TABLET PO (21:34)
[2023-07-26] MEDS: 0.9 % Sodium Chloride 1,000 ML 999 ML IVCONT (21:36)
[2023-07-26] MEDS: cefTRIAXone sodium 1 GM in 0.9 % Sodium Chloride 50 ML IV (21:36)
[2023-07-26 21:44] VITALS: BP 150/66; PULSE 81; RESP 20; TEMP 36.7; O2SAT 97
[2023-07-26] MEDS: 0.9 % Sodium Chloride 1,000 ML 999 ML IV (22:59)
--- NOTE | 2023-07-26 23:56 | PC.NURSE ---
proof technician at bedside for repeat labs.
[2023-07-27 00:10] LABS: Anion Gap 11 (12-20); Blood Urea Nitrogen 17 mg/dL (9-16); Calcium 8.1 mg/dL (8.4-10.2); Carbon Dioxide 23 mmol/L (22-29); Chloride 103 mmol/L (96-108); Creatinine Clr Calc Pharmacy 26.7; Estimated Glomerular Filt Rate 44; Glucose Random 72 mg/dL (60-115); Potassium 4.2 mmol/L (3.3-5.1); Sodium 133 mmol/L (135-145)
[2023-07-27 00:34] VITALS: BP 127/51; PULSE 87; RESP 16; TEMP 36.7; O2SAT 94
== END 2023-07-27 00:35 | disposition home or self-care (01) ==
PROVIDERS: Physician Assistant; Physician Assistant Medical; Emergency Provider Emergency Medicine Emergency Medical Services; PCP Internal Medicine
DX: N17.9 Acute kidney failure, unspecified (principal); N39.0 Urinary tract infection, site not specified; S32.010A Wedge compression fracture of first lumbar vertebra, initial encounter for closed fracture; I10 Essential (primary) hypertension; X58.XXXA Exposure to other specified factors, initial encounter; Y93.9 Activity, unspecified; Y92.9 Unspecified place or not applicable; Y99.9 Unspecified external cause status
CPT/HCPCS: 36415; 72100; 74176; 80048; 80053; 81001; 83690; 83735; 85025; 87086; 96365; 99284; J0696

== ENCOUNTER 2023-12-16 15:29 | Outpatient (AMB) | payer MEDICARE, SELFPAY ==
--- NOTE | 2023-12-16 15:32 | MHC.OFFVIS ---
Vital Signs 12/16/23 15:33 Height 5 ft Weight 124 lb BMI 24.2 BP 146/65 H Blood Pressure Location Lt brachial Position Sitting Pulse 60 Intake Visit Reasons: Abdominal Pains Intake Note: Patient new consult for abdominal pain. Patient cc: abdominal bloating on and off, denies any other GI issues. Outpatient Case Manager Required: No Accompanied by: Family/Other Allergies tetracycline [Tetracycline] Allergy (Mild, Verified 12/16/23 15:33) RASH seasonal Allergy (Unknown, Uncoded 08/22/23 11:26) Sneezing HPI Comments Details: 88 y.o F with PMH of who is here for abd bloating. Bloating is post prandial to certain foods but she is not able to recall which certain foods trigger this. Occurs uncommonly may be once twice a month. Lasts for a couple of hours and then goes away after she has lots of belching. Often related to constipated. Pt and daughter in law both report that sx were bothersome in summer time but since then have almost resolved. [facility] Medical History Breast cancer Arthritis Elevated cholesterol GERD (gastroesophageal reflux disease) HTN (hypertension) Cataract (lens) fragments in eye following cataract surgery, bilateral Surgical History H/O colonoscopy Status post biopsy of skin History of appendectomy H/O lumpectomy Family History Mother Myeloma Maternal Grandmother Diabetes Other No family history of cancer Social History Household Members: [facility] Are you a primary mall plant caretaker to a significant other at home: No Do you presently have visiting nurse or other home services: No Alcohol intake: former Patient Tobacco Use Status: Never used Tobacco service: No Current occupational status: retired Review of Systems Const All systems reviewed & are unremarkable except as noted in HPI and below Physical Exam Vital Signs: Last Vital Signs Pulse 60 12/16/23 15:33 BP 146/65 H 12/16/23 15:33 BMI result Body Mass Index 24.2 No apparent distress Nonicteric Abdomen soft, nondistended Alert and oriented x3, normal gait Results Reviewed Results Reviewed: CT Abd/pel 06/2023: No acute abnormality CT scan abdomen pelvis. Normal kidneys, ureter and bladder. 2. Interstitial lung disease at lung bases Assessment & Plan Assessment & Plan (1) Abdominal pain: Code(s): R10.9 - Unspecified abdominal pain Category: Medical (2) Bloating symptom: Code(s): R14.0 - Abdominal distension (gaseous) Category: Medical Plan Self limiting sx of abd discomfort and bloating which have all resolved now by the time this referral got scheduled. Currently without any acute GI issues. Pt and daughter encouraged to call us for follow up for recurrence of sx or any other gi concerns. Coding Level of Care Code New Pt Level 3 (35864) Diagnoses Abdominal pain R10.9 Bloating symptom R14.0
[2023-12-16 15:33] VITALS: BP 146/65; PULSE 60; BMI 24.2
== END 2023-12-16 16:11 | disposition home or self-care (01) ==
PROVIDERS: PCP Internal Medicine; Visit Provider Internal Medicine
DX: R10.9 Unspecified abdominal pain (principal); R14.0 Abdominal distension (gaseous)
CPT/HCPCS: 99203

== ENCOUNTER → 2023-12-16 15:29 | Outpatient (BNVA) | payer MEDICARE, SELFPAY | PROVIDERS: PCP Internal Medicine; Visit Provider Internal Medicine | DX: R10.9 Unspecified abdominal pain (principal); K59.00 Constipation, unspecified; R14.0 Abdominal distension (gaseous) | CPT/HCPCS: 99202 ==

== ENCOUNTER 2024-03-23 11:51 | Emergency (ER) | payer MEDICARE, SELFPAY ==
--- NOTE | ~2024-03-23 | XR_ITS ---
EXAMINATION: XR CHEST 2 VIEWS HISTORY: cough COMPARISON: There are no prior studies for comparison. FINDINGS: PA and lateral views of the chest are submitted. There are increased interstitial markings bilaterally. There is scarring in the right middle lobe. There are no focal airspace opacities. There is no pleural effusion, pneumothorax, or pulmonary vascular congestion. The heart is normal in size. 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 XR/XR chest 2V IMPRESSION: Increased interstitial markings. Right middle lobe scarring. Electronically signed by: Willie Naploes MD 03/23/2024 01:11 PM [place]
--- NOTE | 2024-03-23 12:10 | ED_ITS ---
HPI - General Adult General Chief complaint: Upper Respiratory Symptoms Stated complaint: Upper Respiratory Problems Time Seen by Provider: 03/23/24 16:09 Source: patient and family (patient's son) Mode of arrival: wheelchair Limitations: no limitations History of Present Illness ED Provider: Beatriz Marquez PA-C HPI narrative: Patient is an 88 year old assigned female at with a history of nephropathy, breast cancer, and HTN presenting to the emergency department today with 2 weeks of a cough, shortness of breath, and diarrhea. Patient states that over the last 2 weeks she has had a persistent cough with intermittent shortness of breath and new episode of diarrhea yesterday. Patient denies any dizziness, lightheadedness, abdominal pain, nausea, vomiting, fever, chills, blurry vision, double vision, loss of vision, chest pain, back pain, night sweats, pain with urination, increased urinary frequency, increased urinary urgency, blood in her urine or stool, syncope or a near syncopal episode, recent trauma or falls, bowel incontinence, bladder incontinence, or any other complaints at this time. Onset (ago): week(s) (2) Relieving factors: none Exacerbating factors: none Associated symptoms: cough and shortness of breath Treatments prior to arrival: none Related Data Home Medications ?Medication ?Instructions ?Recorded ?Confirmed amlodipine 5 mg tablet 1 tab PO DAILY 05/12/20 08/22/23 metoprolol tartrate 25 mg tablet 0.5 tab PO BID 05/12/20 08/22/23 simvastatin 20 mg tablet 1 tab PO BEDTIME 05/12/20 08/22/23 omeprazole 20 mg capsule,delayed 20 mg PO DAILY 10/26/21 08/22/23 release Previous Rx's ?Medication ?Instructions ?Recorded levofloxacin 250 mg tablet 250 mg PO DAILY 5 days #5 tabs 07/19/23 cefuroxime axetil 250 mg tablet 250 mg PO BID 7 days #14 tabs 07/26/23 lorazepam 0.5 mg tablet (Ativan) 0.5 mg PO BID PRN Anxiety #30 tabs 08/22/23 azithromycin 250 mg tablet See Rx Instructions PO .COMPLEX #6 03/23/24 tabs prednisone 20 mg tablet 20 mg PO DAILY 7 days #7 tabs 03/23/24 Allergies Allergy/AdvReac Type Severity Reaction Status Date / Time tetracycline [Tetracycline] Allergy Mild RASH Verified 03/23/24 12:13 seasonal Allergy Unknown Sneezing Uncoded 08/22/23 11:26 Review of Systems Constitutional: Constitutional: Reports no additional constitutional complaints, Denies chills, Denies fever(s) and Denies night sweats Eyes: Eyes: Reports no additional eye complaints, Denies blurry vision, Denies change in vision, Denies diplopia, Denies eye discharge, Denies loss of vision and Denies eye pain ENT: Denies dizziness Cardiovascular: Cardiovascular: Reports no additional cardiovascular complaints, Denies chest pain, Denies lightheadedness, Denies Loss of Consciousness and Reports dyspnea Respiratory: Respiratory: Reports no additional respiratory complaints, Reports cough and Reports dyspnea Gastrointestinal: Gastrointestinal: Reports no additional gastrointestinal complaints, Denies abdominal pain, Denies melena, Denies hematochezia, Reports change in bowel habits, Reports change in stool character and Reports diarrhea Genitourinary: Genitourinary: Denies hematuria, Denies urinary frequency, Denies dysuria, Denies urinary incontinence, Denies urinary hesitancy and Denies urinary urgency Musculoskeletal: Musculoskeletal: Reports no additional musculoskeletal complaints, Denies numbness and Denies tingling Neurologic: Denies dizziness, Denies loss of vision, Denies numbness and Denies tingling Psychiatric: Psychiatric: Reports no additional psychiatric complaints Endocrine: Endocrine: Reports no additional endocrine complaints Hematologic/Lymphatic: Hematologic/Lymphatic: Reports no additional hematologic/lymphatic complaints Allergic/Immunologic: Allergic/Immunologic: Reports no additional allergic/immunologic complaints [facility] Past Medical History Attestation statement: The following information was validated with the patient. (all information validated with the patient's son) Source: old records reviewed, obtained from family (patient's son provided additional history and confirmed the history provided by the patient) and nursing notes reviewed Medical History Breast cancer Arthritis Elevated cholesterol GERD (gastroesophageal reflux disease) HTN (hypertension) Cataract (lens) fragments in eye following cataract surgery, bilateral Surgical History H/O colonoscopy Status post biopsy of skin History of appendectomy H/O lumpectomy Family History Family History Mother Myeloma Maternal Grandmother Diabetes Other No family history of cancer Social History Social History Household Members: Spouse Housing: Condominium Are you a primary director of healthcare systems to a significant other at home: No Do you presently have visiting nurse or other home services: No Alcohol intake: former Patient Tobacco Use Status: Never used Tobacco Advance Directives: Yes Advance Directives Information Provided: Yes Advance Directives on File: No Do you have a plan to hurt others: No Plan service: No Current occupational status: retired Physical Exam ED Vital Signs: Vital Signs - 24 hr 03/23/24 12:11 Temperature 98.6 F Pulse Rate 62 Respiratory Rate 18 Blood Pressure 102/62 Pulse Oximetry 95 Oxygen Delivery Method Room Air BMI result Body Mass Index 27.2 Const General: cooperative, no acute distress, alert and awake Nutritional Appearance: well nourished Orientation/consciousness: patient oriented x3 Limitations: no limitations HENMT Head: Yes normal to inspection and Yes atraumatic Ears: hearing grossly normal bilaterally and external ears normal General nose exam: Normal external nose present, no nasal discharge noted and no epistaxis Face and sinus: Yes normal facial exam, No abrasion and No laceration Mouth: Normal oral and palatal mucosa present, no drooling and no muffled voice Eyes General: appearance normal, both eyes and all related structures Periorbital: periorbital findings normal Eyelids: Yes eyelids normal Conjunctivae: conjunctivae normal Pupils: Equal, round and reactive pupils present EOM: EOMs intact bilaterally Neck Neck: Yes normal visual inspection, Yes full ROM and Yes no lymphadenopathy Chest Chest palpation & inspection: normal inspection of the chest Resp Effort & Inspection: normal respiratory effort and able to speak in complete sentences GI Inspection: Yes normal to inspection Neuro General: patient oriented x3 and moves all extremities Cranial nerves: Yes Equal, round and reactive pupils present Cognition (Neuro): normal cognition Extrem General: Yes normal to inspection, Yes full ROM and Yes capillary refill normal Psych Appearance: grossly normal Mental Status: mental status grossly normal Affect: normal affect Attitude: cooperative Thought process: Normal thought process present Thought content: Normal thought content present Insight: Good insight present (Psych) Course Course Course Narrative: RME performed by Beatriz Marquez PA-C. Patient is an 88 year old assigned female at presenting to the emergency department with a cough. Patient states that over the last month she has had a cough with phlegm that has not gotten better. Detailed physical exam and review of systems are deferred to the substance abuse clinician. Imaging and swabs ordered. Patient placed back in the waiting room pending room availability and results. Medical Decision Making Medical Decision Making [facility] Narrative: Patient is an 88 year old assigned female at with a history of nephropathy, breast cancer, and HTN presenting to the emergency department today with 2 weeks of a cough, shortness of breath, and diarrhea. Patient's physical exam was unremarkable. Patient's chest x-ray showed no acute process. Patient's Influenza testing was positive. I explained my physical exam findings as well as all test results to the patient and the patient's son. I answered all questions asked by the patient and the patient's son. Given the patient's length of symptoms - will treat with azithro. I stressed the importance of the patient taking her medication as directed (either prescribed or as the over the counter packaging recommends). I stressed the importance of the patient following up with her primary care provider. I stressed the importance of the patient re turning to the emergency department immediately if her symptoms were to worsen or if she were to develop any dizziness, shortness of breath, difficulty breathing, chest pain, blurry vision, loss of vision, nausea, vomiting, abdominal pain, fever, chills, back pain, or any other complaints. Patient and the patient's son verbalized agreement and understanding with this treatment plan and discharge. Differential Diagnosis Differential Diagnoses: The differential diagnosis associated with the presentation includes Influenza PNA Viral illness Cough Admission/Observation Consideration of admission/observation: Escalation of care including admission/observation considered Patient would have been admitted to the hospital had her work up had any findings where hospital admission was appropriate and her clinical presentation warranted hospital admission. Lab Data [facility] Lab Attestation statement: I reviewed the patient's lab results. My interpretation of these results are in the [facility] Rationale portion of this note. Labs: Lab Results 03/23/24 Range/Units 12:41 Influenza Type A (PCR) POSITIVE A (Negative) Influenza Type B (PCR) NEGATIVE (Negative) RSV RNA Qual (PCR) NEGATIVE (Negative) SARS-CoV-2 RNA (RT-PCR) NEGATIVE (Negative) Independent Interpretation I performed an independent interpretation of an: Plain X-Ray Interpretation: My interpretation is in agreement with the radiologist's impression of this imaging study. EXAMINATION: XR CHEST 2 VIEWS HISTORY: cough COMPARISON: There are no prior studies for comparison. FINDINGS: PA and lateral views of the chest are submitted. There are increased interstitial markings bilaterally. There is scarring in the right middle lobe. There are no focal airspace opacities. There is no pleural effusion, pneumothorax, or pulmonary vascular congestion. The heart is normal in size. 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 XR/XR chest 2V IMPRESSION: Increased interstitial markings. Right middle lobe scarring. Electronically signed by: Willie Napoles MD 03/23/2024 01:11 PM [facility] Dictated By: Willie Napoles MD Signed By: Electronically signed by Willie Napoles MD 03/23/24 1311 Radiology Impression Discussion of test interpretation with radiology: I have reviewed the r adiologist's reading. Independent Historian Clinical information obtained from an independent historian. History obtained from or confirmed by: Other (patient's son provided additional history and confirmed the history provided by the patient.) Prescription Management I considered prescription management with: Antibiotic (given the length of the patient's symptoms and comorbidities, covered with azithro.) Discharge Plan Discharge Clinical Impression: Influenza, Cough Patient Disposition: Home, Self-Care Instructions: Influenza (DC), Acute Cough (ED) Additional Instructions: Take your medication as prescribed. Follow up with your primary care provider. Return to the emergency department immediately if your symptoms worsen or if you develop any dizziness, shortness of breath, difficulty breathing, chest pain, blurry vision, loss of vision, nausea, vomiting, abdominal pain, fever, chills, back pain, or any other complaints. Prescriptions: New azithromycin 250 mg tablet See Rx Instructions .ROUTE .COMPLEX Qty: 6 0RF Rx Instructions: For 250 mg dose pack: take 500 mg today (day 1), then 250 mg for 4 days (days 2-5) prednisone 20 mg tablet 20 mg PO DAILY 7 Days Qty: 7 0RF No Action amlodipine 5 mg tablet 1 tab PO DAILY simvastatin 20 mg tablet 1 tab PO BEDTIME metoprolol tartrate 25 mg tablet 0.5 tab PO BID lorazepam [Ativan] 0.5 mg Tablet 0.5 mg PO BID PRN (Reason: Anxiety) Qty: 30 0RF cefuroxime axetil 250 mg tablet 250 mg PO BID 7 Days Qty: 14 0RF levofloxacin 250 mg tablet 250 mg PO DAILY 5 Days Qty: 5 0RF omeprazole 20 mg capsule,delayed release(DR/EC) 20 mg PO DAILY Referrals: Augustine Chen MD [Primary Care Provider] - Discharge Date/Time: 03/23/24 16:20 Print Language: Kazakh
[2024-03-23 12:11] VITALS: BP 102/62; PULSE 62; RESP 18; TEMP 37; O2SAT 95; BMI 27.2
[2024-03-23 13:29] LABS: Influenza A PCR POSITIVE (Negative); Influenza B PCR NEGATIVE (Negative); Resp Syncy Virus RNA Qual PCR NEGATIVE (Negative); SARS COV2 PCR INHOUSE NEGATIVE (Negative)
== END 2024-03-23 16:20 | disposition home or self-care (01) ==
PROVIDERS: Physician Assistant Medical; Emergency Provider Emergency Medicine; PCP Internal Medicine
DX: J10.1 Influenza due to other identified influenza virus with other respiratory manifestations (principal); R05.9 Cough, unspecified; R06.02 Shortness of breath; I10 Essential (primary) hypertension; Z03.818 Encounter for observation for suspected exposure to other biological agents ruled out
CPT/HCPCS: 0241U; 71046; 99281; 99283

== ENCOUNTER 2024-04-01 10:05 | Inpatient (IN) | payer MEDICARE, SELFPAY ==
[2024-04-01] VITALS (9 sets, daily range): BP systolic 121–159; BP diastolic 49–69; PULSE 85–102; RESP 16–22; TEMP 36–37.3; O2SAT 92–97; BMI 34.3; BMI 34.1
--- NOTE | ~2024-04-01 | XR_ITS ---
EXAMINATION: XR CHEST CLINICAL INFORMATION: Dyspnea COMPARISON: March 23, 2024. TECHNIQUE: 2 views of the chest were obtained. FINDINGS: Pulmonary reticular pattern. Prominence of the interstitial lung markings with patchy opacities bilaterally. Small left-sided pleural effusion. No pneumothorax. Calcified plaque thoracic aorta. Multilevel thoracic and upper lumbar spondylosis. Wedge compression deformity lower thoracic spine vertebra likely old and osteoporotic. Degenerative changes in the shoulders. XR/XR chest 2V IMPRESSION: Acute on chronic airspace disease. Pulmonary edema versus multifocal pneumonia versus pneumonitis should be included in the differential diagnosis. Electronically signed by: Anthony Tamayo MD 04/01/2024 10:42 AM EST
--- NOTE | 2024-04-01 10:12 | ECG_ITS ---
Test Reason : dyspnea Blood Pressure : */* mmHG Vent. Rate : 95 BPM Atrial Rate : 95 BPM P-R Int : 126 ms QRS Dur : 124 ms QT Int : 370 ms P-R-T Axes : 62 -27 0 degrees QTcB Int : 464 ms Normal sinus rhythm Right bundle branch block Abnormal ECG When compared with ECG of 02-Nov-2014 07:03, Vent. rate has increased by 36 bpm T wave inversion now evident in Anterior leads Referred By: Generic ED Physician Electronically Signed By: Sky Elise
--- NOTE | 2024-04-01 10:33 | PC.NURSE ---
Pt to xray.
[2024-04-01 11:10] LABS: Influenza A PCR POSITIVE (Negative); Influenza B PCR NEGATIVE (Negative); Resp Syncy Virus RNA Qual PCR NEGATIVE (Negative); SARS COV2 PCR INHOUSE NEGATIVE (Negative)
[2024-04-01 11:16] LABS: Hematocrit 37.4 % (37.0-47.0); Mean Corpuscular HGB Conc 34.8 g/dl (31.0-35.0); Mean Corpuscular Hemoglobin 29.7 pg (27.0-33.0); Mean Corpuscular Volume 85.6 fL (80.0-98.0); Mean Platelet Volume 9.1 fL (9.4-12.3); Platelet Count 532 X10*3/uL (160-400); Red Blood Count 4.37 X10*6/uL (4.20-5.50); Red Cell Distribution Width 13.1 % (11.0-16.0); White Blood Count 20.1 X10*3/uL (4.8-10.8)
[2024-04-01 11:28] LABS: Anion Gap 14 (12-20); Blood Urea Nitrogen 16 mg/dL (9-16); Carbon Dioxide 22 mmol/L (22-29); Chloride 96 mmol/L (96-108); Creatinine Clr Calc Pharmacy 23.5; Estimated Glomerular Filt Rate 58; Glucose Random 89 mg/dL (60-115); Lactic Acid 1.2 mmol/L (0.5-2.0); Magnesium 1.9 mg/dL (1.6-2.6); Potassium 3.7 mmol/L (3.3-5.1); Sodium 128 mmol/L (135-145)
[2024-04-01 11:34] LABS: B Type Natriuretic Peptide 120 pg/mL (<100)
[2024-04-01 11:35] LABS: Troponin-I High Sensitivity 36.1 ng/L (<3.5-17.0)
[2024-04-01 11:44] LABS: Atypical Lymph Absolute Manual 0.6 x10*3/uL; Atypical Lymphs Percent Manual 3 % (0-6); Band Neutrophils Percent 6 % (3-5); Lymphocytes Absolute Manual 1.4 X10*3/uL (1.2-4.9); Lymphocytes Percent Manual 7 % (20-40); Metamyelocytes Absolute 0.2 X10*3/uL; Metamyelocytes Percent 1 %; Monocytes Absolute Manual 1.2 X10*3/uL (0.1-1.2); Monocytes Percent Manual 6 % (2-11); Neutrophils Absolute Manual 16.9 X10*3/uL (2.0-8.3); Neutrophils Percent Manual 78 % (45-73)
[2024-04-01 11:46] LABS: RBC Morphology NOTED
[2024-04-01 11:47] LABS: Acanthocytes 2+ (3-5) /OIF; Burr Cells 2+ (3-5) /OIF; Platelet Estimate SLIGHTLY INCREASED (NORMAL); Platelet Morphology Comment NORMAL; Smudge Cells PRESENT; Tear Drop Cells 1+ (0-2) /OIF; Toxic Vacuolation PRESENT
--- OUTSIDE RECORDS SUMMARY | 2024-04-01 12:01 | XMS_ITS | Clinical Summary ---
Author Organization [facility] Facility Address [address] [place] [id number] Care Team Providers Care Chief Passenger Ship Steward/Stewardess Name Role Phone Augustine Chen MD Primary Care Provider [phone] Social History Tobacco Use Types Packs/Day Years Used Date Smoking Tobacco: Never Assessed Comments Unknown Sex and Gender Information Value Date Recorded Sex Assigned at Not on file Legal Sex Female 4:58 PM EST Gender Identity Not on file Sexual Orientation Not on file Plan of Treatment Health Maintenance Due Date Last Done Comments Pneumococcal Vaccine: 65+ Ye ars (1 of 2 - PCV) 1941 Influenza Vaccine (#1) 2023 Hepatitis B Vaccine Aged Out No longe r eligible based on patient's age to complete this [place] [id number] MEDICARE [facility] [place] [facility] [place] [id number] MEDICARE [facility] Care Teams Chief Passenger Ship Steward/Stewardess Relationship Specialty Start Date End Date Augustine Chen MD [address] [place] [id number] PCP - General 03/07/20
[2024-04-01 13:10] LABS: Troponin-I High Sensitivity 37.9 ng/L (<3.5-17.0)
--- NOTE | 2024-04-01 13:20 | ED.GENADULT ---
HPI - General Adult General Chief complaint: Upper Respiratory Symptoms Stated complaint: SOB X3W D/T H/O FLU PER EMS Time Seen by Provider: 04/01/24 13:21 History of Present Illness ED Provider: Manuel ARIAS narrative: The patient is an 88-year-old woman who has been feeling unwell for about 3 weeks. She has been having respiratory symptoms. She was seen here a little over week ago and was tested positive for influenza A. She was prescribed azithromycin and prednisone and discharged. She feels she has been getting worse over the last few days. She has been producing yellow sputum. She has had cough and shortness of breath. She does not know if she has had a fever. Related Data Home Medications ?Medication ?Instructions ?Recorded ?Confirmed amlodipine 5 mg tablet 1 tab PO DAILY 05/12/20 04/01/24 metoprolol tartrate 25 mg tablet 1 tab PO BEDTIME 05/12/20 04/01/24 simvastatin 20 mg tablet 1 tab PO BEDTIME 05/12/20 04/01/24 multivitamin 1 tab PO DAILY 04/01/24 04/01/24 Allergies Allergy/AdvReac Type Severity Reaction Status Date / Time tetracycline [Tetracycline] Allergy Mild RASH Verified 04/01/24 10:45 seasonal Allergy Unknown Sneezing Uncoded 08/22/23 11:26 Review of Systems Review of Systems: Yes all other systems are reviewed and are negative [facility] Past Medical History Medical History Breast cancer Arthritis Elevated cholesterol GERD (gastroesophageal reflux disease) HTN (hypertension) Cataract (lens) fragments in eye following cataract surgery, bilateral Surgical History H/O colonoscopy Status post biopsy of skin History of appendectomy H/O lumpectomy Family History Family History Mother Myeloma Maternal Grandmother Diabetes Other No family history of cancer Social History Social History Household Members: None Housing: Condominium Are you a primary home care specialist to a significant other at home: No Do you presently have visiting nurse or other home services: No Alcohol intake: former Patient Tobacco Use Status: Never used Tobacco Smoked in Last 30 Days: No Use of substances other than those prescribed or required for medical reasons: No Currently Displaying Signs/Symptoms of Drug Intoxication Withdrawal: No Have you been hit, kicked, punched, or otherwise hurt by someone within the past year? If so, by whom?: No Do you feel safe in your current relationship?: No Current Relationship Is there a partner from a previous relationship who is making you feel unsafe now?: No Are you made to feel afraid or neglected: No Advance Directives: No Advance Directives Information Provided: Yes Do you have a plan to hurt others: No Plan Recently lost weight without trying: No How much weight loss: Not applicable Eating poorly because of decreased appetite: No Nutrition screen score: 0 Nutrition Risks: No Nutritional Risk Patient : No : No Poor oral hygiene: No service: No Current occupational status: retired Physical Exam ED Vital Signs: Vital Signs - 24 hr 04/01/24 10:44 04/01/24 12:16 04/01/24 14:11 Temperature 99.1 F 98.2 F Pulse Rate 95 89 89 Respiratory Rate 16 20 22 H Blood Pressure 145/59 H 123/61 138/65 Pulse Oximetry 94 92 92 Oxygen Delivery Method Room Air Room Air Room Air 04/01/24 14:24 Temperature Pulse Rate 94 Respiratory Rate 17 Blood Pressure Pulse Oximetry Oxygen Delivery Method BMI result Body Mass Index 34.3 Const Other: The patient is a frail looking 88-year-old. She is awake and alert but seems quite weak and worn out. No overt respiratory distress however. HENMT Other: Face is symmetrical. Mucous membranes moist. Eyes General: appearance normal, both eyes and all related structures Neck Neck: Yes full ROM and Yes no JVD Resp Other: Some slight wheezes and crackles bilaterally Cardio Rate: regular rate Rhythm: regular rhythm Heart sounds: S1 normal heart sound present and S2 normal heart sound present GI Other: Abdomen is soft and nontender Skin Other: Skin is pale and dry Neuro Other: The patient is awake and alert with a normal mental status. She seems frail but has intact cranial nerves and symmetrical tone. No focal finding. Extrem Other: No peripheral edema. No asymmetry. Medications Administered Generic Name Dose Route Start Last Admin Trade Name Freq PRN Reason Stop Dose Admin Acetaminophen 650 mg 04/01/24 14:42 04/01/24 15:46 Acetaminophen 325 Mg Tablet PO 650 mg Q6H PRN Administration Pain, Mild 1-3,fever,headache Albuterol/Ipratropium 3 ml 04/01/24 14:47 04/02/24 15:49 Albuterol/Iprat 2.5/0.5mg 3 Ml Ampul.Neb INHALE 3 ml Q4H PRN Administration Shortness of Breath/Wheezing Amlodipine Besylate 5 mg 04/02/24 09:50 04/02/24 10:16 Amlodipine Besylate 5 Mg Tablet PO 5 mg DAILY CHACE Administration Protocol Benzonatate 200 mg 04/02/24 14:14 04/02/24 14:31 Benzonatate 100 Mg Capsule PO 200 mg TID PRN Administration Cough Ceftriaxone Sodium 1 gm 04/02/24 15:00 04/02/24 14:33 Ceftriaxone Sodium 1 Gm Vial IVPUSH 1 gm Q24H CHACE Administration Enoxaparin Sodium 30 mg 04/01/24 15:00 04/02/24 14:33 Enoxaparin Sodium 30 Mg/0.3 Ml Syringe SUBCUT 30 mg Q24H CHACE Administration Azithromycin 500 mg/ Sodium 250 mls @ 125 mls/hr 04/02/24 14:00 04/02/24 17:00 Chloride IV Infused DAILY CHACE Infusion Methylprednisolone Sodium Succinate 40 mg 04/01/24 15:00 04/03/24 03:12 Methylprednisolone Sod Succ 40 Mg/Ml Vial IVPUSH 40 mg Q12H CHACE Administration Metoprolol Tartrate 25 mg 04/02/24 21:00 04/02/24 20:06 Metoprolol Tartrate 25 Mg Tablet PO 25 mg BEDTIME CHACE Administration Protocol Sodium Chloride 3 ml 04/01/24 16:00 04/02/24 20:09 0.9 % Sodium Chloride Flush 3 Ml Syringe IVFLUSH 3 ml QSHIFT CHACE Administration Discontinued Medications Generic Name Dose Route Start Last Admin Trade Name Freq PRN Reason Stop Dose Admin Albuterol/Ipratropium 3 ml 04/01/24 14:12 04/01/24 14:22 Albuterol/Iprat 2.5/0.5mg 3 Ml Ampul.Neb INHALE 04/01/24 14:13 3 ml ONCE ONE Administration Ceftriaxone Sodium 1 gm 04/01/24 14:08 04/01/24 14:27 Ceftriaxone Sodium 1 Gm Vial IVPUSH 04/01/24 14:09 1 gm ONCE ONE Administration Azithromycin 500 mg/ Sodium 250 mls @ 125 mls/hr 04/01/24 14:10 04/01/24 16:30 Chloride IV 04/01/24 16:09 Infused ONCE ONE Infusion Sodium Chloride 500 mls @ 500 mls/hr 04/01/24 14:15 04/01/24 15:30 Ns IV 04/01/24 15:14 Infused .Q1H CHACE Infusion Medical Decision Making Medical Decision Making [facility] Narrative: The patient is an 88-year-old woman who has been feeling unwell for about 3 weeks with a respiratory symptoms. She was found to have influenza 9 days ago. She is still testing positive for influenza. Her chest x-ray today suggests a pneumonia and she has a high white count. She does not seem frankly septic. Her white count is 1.2. She has an EKG that shows a right bundle branch block with T-wave inversions anteriorly. I suspect this is a rate-related changed. Troponins are flat. She will be admitted for further care. Lab Data 04/02/24 05:13 04/03/24 05:18 Labs: Lab Results 04/01/24 04/01/24 04/01/24 Range/Units 10:23 11:04 12:38 WBC 20.1 H (4.8-10.8) X10*3/uL RBC 4.37 (4.20-5.50) X10*6/uL Hgb 13.0 (12.0-16.0) g/dl Hct 37.4 (37.0-47.0) % MCV 85.6 (80.0-98.0) fL MCH 29.7 (27.0-33.0) pg MCHC 34.8 (31.0-35.0) g/dl RDW 13.1 (11.0-16.0) % Plt Count 532 H (160-400) X10*3/uL MPV 9.1 L (9.4-12.3) fL Immature Gran % (Auto) Cancelled Neut % (Auto) Cancelled Lymph % (Auto) Cancelled [place] % (Auto) Cancelled Eos % (Auto) Cancelled Baso % (Auto) Cancelled Lymph # (Auto) Cancelled [place] # (Auto) Cancelled Eos # (Auto) Cancelled Baso # (Auto) Cancelled Abs Immat Gran (auto) Cancelled Absolute Neuts (auto) Cancelled Absolute Nucleated RBC 0.000 (0.0-0.012) X10*3/uL Nucleated RBC % (auto) 0.0 (0.0-0.2) /100WBC Neutrophils % (Manual) 78 H (45-73) % Band Neutrophils % 6 H (3-5) % Lymphocytes % (Manual) 7 L (20-40) % Atypical Lymphs % (Man) 3 (0-6) % Monocytes % (Manual) 6 (2-11) % Metamyelocytes % 1 % Abs Neuts (Manual) 16.9 H (2.0-8.3) X10*3/uL Lymphocytes # (Manual) 1.4 (1.2-4.9) X10*3/uL Atyp Lymphs # (Manual) 0.6 x10*3/uL Monocytes # (Manual) 1.2 (0.1-1.2) X10*3/uL Metamyelocytes # 0.2 X10*3/uL [place] Cells PRESENT Toxic Vacuolation PRESENT Platelet Estimate SLIGHTLY INCREASED (NORMAL) Plt Morphology Comment NORMAL RBC Morphology NOTED Tear Drop Cells 1+ (0-2) /OIF [place] Cells 2+ (3-5) /OIF Acanthocytes (Spur) 2+ (3-5) /OIF Sodium 128 L (135-145) mmol/L Potassium 3.7 D (3.3-5.1) mmol/L Chloride 96 (96-108) mmol/L Carbon Dioxide 22 (22-29) mmol/L Anion Gap 14 (12-20) BUN 16 (9-16) mg/dL Creatinine 0.91 (0.5-1.4) mg/dL Estim Creat Clear Calc 23.5 Estimated GFR 58 Random Glucose 89 (60-115) mg/dL Lactic Acid 1.2 (0.5-2.0) mmol/L Calcium 9.0 D (8.4-10.2) mg/dL Magnesium 1.9 (1.6-2.6) mg/dL Troponin I High Sens 36.1 H 37.9 H (<3.5-17.0) ng/L B-Natriuretic Peptide 120 H (<100) pg/mL Influenza Type A (PCR) POSITIVE A (Negative) Influenza Type B (PCR) NEGATIVE (Negative) RSV RNA Qual (PCR) NEGATIVE (Negative) SARS-CoV-2 RNA (RT-PCR) NEGATIVE (Negative) Discharge Plan Discharge Clinical Impression: Pneumonia Patient Disposition: Admitted As Inpatient Interventions: Admission Worksheet (ED) Last Done: 04/01/24 19:26 Discharge Date/Time: 04/01/24 20:26
[2024-04-01] MEDS: Albuterol/Iprat 2.5/0.5MG 3 ML AMPUL.NEB INHALE (14:22)
[2024-04-01] MEDS: cefTRIAXone sodium 1 GM VIAL IVPUSH (14:27)
[2024-04-01] MEDS: Azithromycin 500 MG in 0.9 % Sodium Chloride 250 ML 125 MG IV (14:27)
[2024-04-01] MEDS: 0.9 % Sodium Chloride 500 ML IV (14:27)
--- NOTE | 2024-04-01 14:51 | P.HPHOSP_ITS ---
History of Present Illness Date of Service: 04/01/24 Chief Complaint: Worsening shortness of breath 88-year-old woman who has been feeling unwell for about 3 weeks. She has been having respiratory symptoms. She was seen here a little over week ago and was tested positive for influenza A. She was prescribed azithromycin and prednisone and discharged. She feels she has been getting worse over the last few days. She has been producing yellow sputum. She has had cough and shortness of breath. She does not know if she has had a fever. Review of Systems 2 Review of Systems: Denies chest pain Admits to shortness of breath with minimal exertion Denies nausea vomiting diarrhea Denies fever chills [facility] Medical History (Updated 04/01/24 @ 14:57 by Enoch Angeles DO) Breast cancer Arthritis Elevated cholesterol GERD (gastroesophageal reflux disease) HTN (hypertension) Cataract (lens) fragments in eye following cataract surgery, bilateral Family History Mother Myeloma Maternal Grandmother Diabetes Other No family history of cancer Surgical History H/O colonoscopy Status post biopsy of skin History of appendectomy H/O lumpectomy Social History Household Members: Spouse Housing: [facility] Are you a primary patient care technician to a significant other at home: No Do you presently have visiting nurse or other home services: No Alcohol intake: former Patient Tobacco Use Status: Never used Tobacco Advance Directives: No Advance Directives Information Provided: Yes Do you have a plan to hurt others: No Plan service: No Current occupational status: retired Meds Allergies Allergy/AdvReac Type Severity Reaction Status Date / Time tetracycline [Tetracycline] Allergy Mild RASH Verified 04/01/24 10:45 seasonal Allergy Unknown Sneezing Uncoded 08/22/23 11:26 Active Medications: Current Medications Acetaminophen (Acetaminophen 325 Mg Tablet) 650 mg PO Q6H PRN PRN Reason: Pain, Mild 1-3,fever,headache Albuterol/Ipratropium (Albuterol/Iprat 2.5/0.5mg 3 Ml Ampul.Neb) 3 ml INHALE Q4H PRN PRN Reason: Shortness of Breath/Wheezing Calcium Carbonate (Calcium Carbonate 750 Mg Tab.Chew) 750 mg PO Q4H PRN PRN Reason: Heartburn Ceftriaxone Sodium (Ceftriaxone Sodium 1 Gm Vial) 1 gm IVPUSH Q24H COUNT INCLUDES THE [facility] Enoxaparin Sodium (Enoxaparin Sodium 30 Mg/0.3 Ml Syringe) 30 mg SUBCUT Q24H COUNT INCLUDES THE [facility] Azithromycin 500 mg/ Sodium (Chloride) 250 mls @ 125 mls/hr IV ONCE ONE Stop: 04/01/24 16:09 Last Admin: 04/01/24 14:27 Dose: 125 mls/hr Sodium Chloride (Ns) 500 mls @ 500 mls/hr IV .Q1H [facility] Stop: 04/01/24 15:14 Last Admin: 04/01/24 14:27 Dose: 500 mls/hr Azithromycin 500 mg/ Sodium (Chloride) 250 mls @ 125 mls/hr IV DAILY COUNT INCLUDES THE [facility] Magnesium Hydroxide (Milk Of Magnesia 30 Ml Oral.Susp) 30 ml PO DAILY PRN PRN Reason: Constipation Melatonin (Melatonin 3 Mg Tablet) 6 mg PO BEDTIME PRN PRN Reason: Insomnia Ondansetron HCl (Ondansetron Hcl 4 Mg/2 Ml Vial) 4 mg IVPUSH Q8H PRN PRN Reason: Nausea and Vomiting Sodium Chloride (0.9 % Sodium Chloride Flush 3 Ml Syringe) 3 ml IVFLUSH QSHIFT COUNT INCLUDES THE [facility] Home Medications ?Medication ?Instructions ?Recorded ?Confirmed ?Last Taken ?Type amlodipine 5 mg tablet 1 tab PO DAILY 05/12/20 08/22/23 Unknown History metoprolol tartrate 25 mg tablet 0.5 tab PO BID 05/12/20 08/22/23 Unknown History simvastatin 20 mg tablet 1 tab PO BEDTIME 05/12/20 08/22/23 Unknown History omeprazole 20 mg capsule,delayed 20 mg PO DAILY 10/26/21 08/22/23 Unknown History release Physical Exam 2 Vital Signs and Narrative: Vital Signs: Last Vital Signs Temp 98.2 F 04/01/24 12:16 Pulse 94 04/01/24 14:24 Resp 17 04/01/24 14:24 BP 138/65 04/01/24 14:11 Pulse Ox 92 04/01/24 14:11 O2 Del Method Room Air 04/01/24 14:11 BMI result Body Mass Index 34.3 Const: Other: Awake alert ill-appearing Resp: Other: Diminished throughout with crackles left base along with diffuse expiratory wheezes Cardio: Other: No S4; positive S1-S2; no S3 murmurs rubs or gallops GI: Other: Soft nontender nondistended normoactive bowel sounds Extrem: Other: No edema bilaterally Results Labs 04/01/24 11:04 04/01/24 11:04 Labs: Laboratory Results - last 24 hr 04/01/24 04/01/24 04/01/24 10:23 11:04 12:38 MCV 85.6 MCH 29.7 MCHC 34.8 RDW 13.1 Plt Count 532 H MPV 9.1 L Immature Gran % (Auto) Cancelled Neut % (Auto) Cancelled Lymph % (Auto) Cancelled [place] % (Auto) Cancelled Eos % (Auto) Cancelled Baso % (Auto) Cancelled Lymph # (Auto) Cancelled [place] # (Auto) Cancelled Eos # (Auto) Cancelled Baso # (Auto) Cancelled Abs Immat Gran (auto) Cancelled Absolute Neuts (auto) Cancelled Absolute Nucleated RBC 0.000 Nucleated RBC % (auto) 0.0 Neutrophils % (Manual) 78 H Band Neutrophils % 6 H Lymphocytes % (Manual) 7 L Atypical Lymphs % (Man) 3 Monocytes % (Manual) 6 Metamyelocytes % 1 Abs Neuts (Manual) 16.9 H Lymphocytes # (Manual) 1.4 Atyp Lymphs # (Manual) 0.6 Monocytes # (Manual) 1.2 Metamyelocytes # 0.2 Smudge Cells PRESENT Toxic Vacuolation PRESENT Platelet Estimate SLIGHTLY INCREASED Plt Morphology Comment NORMAL RBC Morphology NOTED Tear Drop Cells 1+ (0-2) Reg Cells 2+ (3-5) Acanthocytes (Spur) 2+ (3-5) Anion Gap 14 Estim Creat Clear Calc 23.5 Estimated GFR 58 Random Glucose 89 Lactic Acid 1.2 Calcium 9.0 D Magnesium 1.9 Troponin I High Sens 36.1 H 37.9 H B-Natriuretic Peptide 120 H Influenza Type A (PCR) POSITIVE A Influenza Type B (PCR) NEGATIVE RSV RNA Qual (PCR) NEGATIVE SARS-CoV-2 RNA (RT-PCR) NEGATIVE Imaging Radiologist's Impressions: Impressions Chest X-Ray 04/01/24 10:14 IMPRESSION: Acute on chronic airspace disease. Pulmonary edema versus multifocal pneumonia versus pneumonitis should be included in the differential diagnosis. Electronically signed by: Anthony Tamayo MD 04/01/2024 10:42 AM [facility] [place] and Plan (1) Influenza A: Status: Acute (2) Multifocal pneumonia: Status: Acute (3) HTN (hypertension): Qualifiers: Hypertension type: primary hypertension Qualified Code(s): I10 - Essential (primary) hypertension Status: Acute (4) GERD (gastroesophageal reflux disease): Qualifiers: Esophagitis presence: esophagitis presence not specified Qualified Code(s): K21.9 - Gastro-esophageal reflux disease without esophagitis Status: Acute Plan 88-year-old female recently tested positive for influenza A seen at walk-in clinic for worsening shortness of breath and prescribed azithromycin and prednisone. Over the course of the next several days her breathing continued to worsen to the point where it was difficult to ambulate. In the emergency room today workup consistent with a 20,000 white count and x-ray consistent with the exam which demonstrates multifocal pneumonia 1. Multifocal pneumonia secondary to influenza a -azithromycin/ceftriaxone (1) -methylprednisolone 40 mg IV q.12 hours -DuoNebs q.4 hours p.r.n. wheezing -titrate O2 to maintain sats greater than equal 92% 2. Hypertension -acceptable control on current therapies -adjust as indicated 3.GERD -add omeprazole while on methylprednisolone Full code Lovenox Patient will require 2 midnights minimum of inpatient hospital stay to treat multifocal pneumonia that has failed outpatient therapies. This can not be achieved a lesser acute setting Quality Stroke Does the patient have a stroke diagnosis?: No VTE Prior VTE?: No VTE Risk Level:: Medical - moderate - high VTE Device Contraindication: Treatment Not Indicated VTE Drug Contraindication: N/A - Med Ordered
--- NOTE | 2024-04-01 15:41 | PHA.MEDREC ---
Addendum entered by Pako Jose [facility] [place] 04/01/24 15:51: med rec reviewed Original Note: Pharmacy Consult ? Medication Reconciliation Pharmacy has completed the medication reconciliation. Spoke with patient and she confirmed her medications. Patient confirmed she finished the Azithromycin and Prednisone regimen in the last few days but did not remember exactly when right now. She confirmed as well that she is taking the Metoprolol Tartrate 25mg tab 1 tab at bedtime instead of the 1/2 tab BID. She stated she stopped taking the Omeprazole 20mg capsule just because she felt like it wasn't doing much when taking it. She confirmed she took her medications yesterday.
[2024-04-01] MEDS: Enoxaparin Sodium 30 MG/0.3 ML SYRINGE SUBCUT (15:46)
[2024-04-01] MEDS: methylPREDNISolone Sod Succ 40 MG/ML VIAL IVPUSH (15:46)
[2024-04-01] MEDS: Acetaminophen 325 MG TABLET 650 MG PO (15:46)
[2024-04-01] MEDS: 0.9 % Sodium Chloride Flush 3 ML SYRINGE IVFLUSH (20:34)
[2024-04-02] MEDS: methylPREDNISolone Sod Succ 40 MG/ML VIAL IVPUSH ×2 (02:36→14:32)
[2024-04-02 04:00] VITALS: BP 143/63; PULSE 68; RESP 16; TEMP 36.2; O2SAT 93
[2024-04-02 06:24] LABS: Alanine Aminotransferase 26 U/L (0-31); Albumin Level 2.7 g/dL (3.5-5.0); Alkaline Phosphatase 58 U/L (39-117); Anion Gap 12 (12-20); Aspartate Amino Transferase 34 U/L (5-31); Bilirubin Total 0.4 mg/dL (0.0-1.0); Blood Urea Nitrogen 14 mg/dL (9-16); Calcium 8.4 mg/dL (8.4-10.2); Carbon Dioxide 21 mmol/L (22-29); Chloride 100 mmol/L (96-108); Creatinine Clr Calc Pharmacy 28.1; Estimated Glomerular Filt Rate > 60; Glucose Random 149 mg/dL (60-115); Potassium 3.9 mmol/L (3.3-5.1); Sodium 129 mmol/L (135-145); Total Protein 6.3 g/dL (6.5-8.0)
[2024-04-02 06:44] LABS: Hematocrit 33.9 % (37.0-47.0); Hemoglobin 11.6 g/dl (12.0-16.0); Mean Corpuscular HGB Conc 34.2 g/dl (31.0-35.0); Mean Corpuscular Hemoglobin 29.2 pg (27.0-33.0); Mean Corpuscular Volume 85.4 fL (80.0-98.0); Mean Platelet Volume 9.6 fL (9.4-12.3); Platelet Count 550 X10*3/uL (160-400); Red Blood Count 3.97 X10*6/uL (4.20-5.50); Red Cell Distribution Width 13.1 % (11.0-16.0); White Blood Count 16.3 X10*3/uL (4.8-10.8)
[2024-04-02 07:11] VITALS: BP 150/67; PULSE 75; RESP 16; TEMP 36.2; O2SAT 94
[2024-04-02 08:14] LABS: SLIDE REVIEW MANUAL DIFF
[2024-04-02 08:16] LABS: Atypical Lymph Absolute Manual 0.3 x10*3/uL; Atypical Lymphs Percent Manual 2 % (0-6); Band Neutrophils Percent 4 % (3-5); Lymphocytes Absolute Manual 1.3 X10*3/uL (1.2-4.9); Lymphocytes Percent Manual 8 % (20-40); Monocytes Absolute Manual 0.2 X10*3/uL (0.1-1.2); Monocytes Percent Manual 1 % (2-11); Neutrophils Absolute Manual 14.5 X10*3/uL (2.0-8.3); Neutrophils Percent Manual 85 % (45-73)
[2024-04-02 08:17] LABS: Platelet Estimate INCREASED (NORMAL); RBC Morphology NORMAL
[2024-04-02 08:18] LABS: Large Platelet PRESENT; Platelet Morphology Comment NOTED
[2024-04-02] MEDS: 0.9 % Sodium Chloride Flush 3 ML SYRINGE IVFLUSH ×2 (08:44→20:09)
[2024-04-02] MEDS: amLODIPine Besylate 5 MG TABLET PO (10:16)
--- NOTE | 2024-04-02 11:42 | HO.PM.IMPN ---
Subjective Subjective Date of Service: 04/02/24 Interval History: seen and evaluated feels little better reports coughing denies fever or chills Na on lower side of 129 Review of Systems Review of Systems: Yes all other systems are reviewed and are negative Physical Exam Vital Signs: Vital Signs: Last Vital Signs Temp 97.1 F 04/02/24 07:11 Pulse 75 04/02/24 07:11 Resp 16 04/02/24 07:11 BP 150/67 H 04/02/24 07:11 Pulse Ox 94 04/02/24 07:11 O2 Del Method Room Air 04/02/24 07:11 BMI result Body Mass Index 34.1 Const: Other: Constitutional : interactive, not in distress Cardiovascular : no JVP, no lower extremity edema Respiratory : bilateral chest movement, not in resp distress , basal fine crackles. Gastrointestinal: soft, lax, Non tender Skin : Warm, Dry Neurological : Alert & oriented to self and place , No focal deficit Objective Data Active Medications Acetaminophen (Acetaminophen 325 Mg Tablet) 650 mg PO Q6H PRN PRN Reason: Pain, Mild 1-3,fever,headache Last Admin: 04/01/24 15:46 Dose: 650 mg Documented By: ROLF Albuterol/Ipratropium (Albuterol/Iprat 2.5/0.5mg 3 Ml Ampul.Neb) 3 ml INHALE Q4H PRN PRN Reason: Shortness of Breath/Wheezing Amlodipine Besylate (Amlodipine Besylate 5 Mg Tablet) 5 mg PO DAILY [facility]; Protocol Last Admin: 04/02/24 10:16 Dose: 5 mg Documented By: KUSUM Calcium Carbonate (Calcium Carbonate 750 Mg Tab.Chew) 750 mg PO Q4H PRN PRN Reason: Heartburn Ceftriaxone Sodium (Ceftriaxone Sodium 1 Gm Vial) 1 gm IVPUSH Q24H [facility] Enoxaparin Sodium (Enoxaparin Sodium 30 Mg/0.3 Ml Syringe) 30 mg SUBCUT Q24H [facility] Last Admin: 04/01/24 15:46 Dose: 30 mg Documented By: ROLF Azithromycin 500 mg/ Sodium (Chloride) 250 mls @ 125 mls/hr IV DAILY [facility] Magnesium Hydroxide (Milk Of Magnesia 30 Ml Oral.Susp) 30 ml PO DAILY PRN PRN Reason: Constipation Melatonin (Melatonin 3 Mg Tablet) 6 mg PO BEDTIME PRN PRN Reason: Insomnia Methylprednisolone Sodium Succinate (Methylprednisolone Sod Succ 40 Mg/Ml Vial) 40 mg IVPUSH Q12H [facility] Last Admin: 04/02/24 02:36 Dose: 40 mg Documented By: TERESA Metoprolol Tartrate (Metoprolol Tartrate 25 Mg Tablet) 25 mg PO BEDTIME [facility]; Protocol Ondansetron HCl (Ondansetron Hcl 4 Mg/2 Ml Vial) 4 mg IVPUSH Q8H PRN PRN Reason: Nausea and Vomiting Sodium Chloride (0.9 % Sodium Chloride Flush 3 Ml Syringe) 3 ml IVFLUSH QSHIFT [facility] Last Admin: 04/02/24 08:44 Dose: 3 ml Documented By: KUSUM Labs 04/02/24 05:13 04/02/24 05:13 Labs: Laboratory Results - last 24 hr 04/01/24 04/01/24 04/02/24 11:04 12:38 05:13 MCV 85.6 85.4 MCH 29.7 29.2 MCHC 34.8 34.2 RDW 13.1 13.1 Plt Count 532 H 550 H MPV 9.1 L 9.6 Immature Gran % (Auto) Cancelled Neut % (Auto) Cancelled Lymph % (Auto) Cancelled [place] % (Auto) Cancelled Eos % (Auto) Cancelled Baso % (Auto) Cancelled Lymph # (Auto) Cancelled [place] # (Auto) Cancelled Eos # (Auto) Cancelled Baso # (Auto) Cancelled Abs Immat Gran (auto) Cancelled Absolute Neuts (auto) Cancelled Absolute Nucleated RBC 0.000 0.000 Nucleated RBC % (auto) 0.0 0.0 Neutrophils % (Manual) 78 H 85 H Band Neutrophils % 6 H 4 Lymphocytes % (Manual) 7 L 8 L Atypical Lymphs % (Man) 3 2 Monocytes % (Manual) 6 1 L Metamyelocytes % 1 Abs Neuts (Manual) 16.9 H 14.5 H Lymphocytes # (Manual) 1.4 1.3 Atyp Lymphs # (Manual) 0.6 0.3 Monocytes # (Manual) 1.2 0.2 Metamyelocytes # 0.2 Smudge Cells PRESENT Toxic Vacuolation PRESENT Platelet Estimate SLIGHTLY INCREASED INCREASED Large Platelets PRESENT Plt Morphology Comment NORMAL NOTED RBC Morphology NOTED NORMAL Tear Drop Cells 1+ (0-2) Reg Cells 2+ (3-5) Acanthocytes (Spur) 2+ (3-5) Smear Tech's Comments MANUAL DIFF Anion Gap 12 Estim Creat Clear Calc 28.1 Estimated GFR > 60 Random Glucose 149 H Calcium 8.4 D Total Bilirubin 0.4 AST 34 H ALT 26 Alkaline Phosphatase 58 Troponin I High Sens 37.9 H Total Protein 6.3 L Albumin 2.7 L Assessment and Plan (1) GERD (gastroesophageal reflux disease): Status: Acute (2) Influenza A: Status: Acute (3) Multifocal pneumonia: Status: Acute Plan 88-year-old female recently tested positive for influenza A seen at walk-in clinic for worsening shortness of breath and prescribed azithromycin and prednisone. Over the course of the next several days her breathing continued to worsen to the point where it was difficult to ambulate. In the emergency room today workup consistent with a 20,000 white count and x-ray consistent with the exam which demonstrates multifocal pneumonia Multifocal pneumonia secondary to influenza A WBCs trending down Pending cultures Continue azithromycin/ceftriaxone 2/5 methylprednisolone 40 mg IV q.12 hours DuoNebs q.4 hours p.r.n. wheezing titrate O2 to maintain sats greater than equal 92% Hypertension restart home meds GERD omeprazole while on methylprednisolone Full code Lovenox Patient will require midnights minimum of inpatient hospital stay to treat multifocal pneumonia that has failed outpatient therapies. This can not be achieved a lesser acute setting Quality Stroke Does the patient have a stroke diagnosis?: No VTE Prior VTE?: No VTE Risk Level:: Medical - moderate - high VTE Device Contraindication: Treatment Not Indicated VTE Drug Contraindication: N/A - Med Ordered
[2024-04-02 12:44] VITALS: BP 150/67; PULSE 75; O2SAT 94
--- NOTE | 2024-04-02 13:26 | MHC.CM.PN ---
FIRING PIN GAUGER AND CM MET WITH PT AT BEDSIDE. PT STATES SHE LIVES WITH SPOUSE IN A [place] PT STATES SHE USES [facility] PT STATES SHE USES A WALKER WHEN NEEDED PT STATES SHE HAS A HCP ON FILE PT'S HCP IS OXANA TORO PT'S INSURANCE IS MEDICARE PT WAS RECOMMENDED FOR PT, REFERRALS SENT. TRANSPORT WILL BE DECIDED CLOSER TO [place]
[2024-04-02] MEDS: Benzonatate 100 MG CAPSULE 200 MG PO (14:31)
[2024-04-02] MEDS: Enoxaparin Sodium 30 MG/0.3 ML SYRINGE SUBCUT (14:33)
[2024-04-02] MEDS: cefTRIAXone sodium 1 GM VIAL IVPUSH (14:33)
[2024-04-02] MEDS: Azithromycin 500 MG in 0.9 % Sodium Chloride 250 ML 125 MG IV (14:42)
[2024-04-02 15:03] VITALS: BP 147/67; PULSE 82; RESP 20; TEMP 36.5; O2SAT 94
[2024-04-02 15:49] VITALS: PULSE 93; RESP 18; O2SAT 93
[2024-04-02] MEDS: Albuterol/Iprat 2.5/0.5MG 3 ML AMPUL.NEB INHALE (15:49)
[2024-04-02 19:02] VITALS: BP 136/63; PULSE 101; RESP 20; TEMP 36; O2SAT 92
[2024-04-02] MEDS: Metoprolol Tartrate 25 MG TABLET PO (20:06)
[2024-04-03] VITALS (7 sets, daily range): BP systolic 132–162; BP diastolic 60–73; PULSE 78–85; RESP 14–18; TEMP 36.6–37.7; O2SAT 94–96
[2024-04-03] MEDS: methylPREDNISolone Sod Succ 40 MG/ML VIAL IVPUSH (03:12)
[2024-04-03 05:59] LABS: Basophils Absolute Auto 0.1 X10*3/uL (0.0-0.2); Basophils Percent Auto 0.3 % (0-2); Hematocrit 33.4 % (37.0-47.0); Hemoglobin 11.6 g/dl (12.0-16.0); Imm Gran Abs Auto 0.82 X10*3/uL (0.00-0.03); Imm Gran Pct Auto 3.7 % (0.0-0.4); Lymphocytes Absolute Auto 1.8 X10*3/uL (1.2-4.9); Lymphocytes Percent Auto 8.1 % (20-40); MANUAL DIFF FLAG SCAN; Mean Corpuscular HGB Conc 34.7 g/dl (31.0-35.0); Mean Corpuscular Hemoglobin 29.4 pg (27.0-33.0); Mean Corpuscular Volume 84.8 fL (80.0-98.0); Mean Platelet Volume 9.2 fL (9.4-12.3); Monocytes Absolute Auto 0.9 X10*3/uL (0.1-1.2); Neutrophils Absolute Auto 18.5 x10*3/uL (2.0-8.3); Neutrophils Percent Auto 83.9 % (45-73); Platelet Count 559 X10*3/uL (160-400); Red Blood Count 3.94 X10*6/uL (4.20-5.50); Red Cell Distribution Width 13.2 % (11.0-16.0); SCAN SMEAR FLAG 1; White Blood Count 22.1 X10*3/uL (4.8-10.8)
[2024-04-03 06:13] LABS: Alanine Aminotransferase 20 U/L (0-31); Albumin Level 2.8 g/dL (3.5-5.0); Alkaline Phosphatase 62 U/L (39-117); Anion Gap 12 (12-20); Aspartate Amino Transferase 37 U/L (5-31); Bilirubin Total 0.3 mg/dL (0.0-1.0); Blood Urea Nitrogen 16 mg/dL (9-16); Calcium 8.5 mg/dL (8.4-10.2); Carbon Dioxide 21 mmol/L (22-29); Chloride 101 mmol/L (96-108); Creatinine Clr Calc Pharmacy 27.7; Estimated Glomerular Filt Rate > 60; Glucose Random 136 mg/dL (60-115); Potassium 3.7 mmol/L (3.3-5.1); Sodium 130 mmol/L (135-145); Total Protein 6.3 g/dL (6.5-8.0)
[2024-04-03 07:38] LABS: SLIDE REVIEW VERIFIED
[2024-04-03] MEDS: 0.9 % Sodium Chloride Flush 3 ML SYRINGE IVFLUSH ×3 (08:11→22:08)
[2024-04-03] MEDS: amLODIPine Besylate 5 MG TABLET PO (08:11)
[2024-04-03] MEDS: Azithromycin 500 MG in 0.9 % Sodium Chloride 250 ML 125 MG IV (08:15)
--- NOTE | 2024-04-03 08:59 | P.PNIM_ITS ---
Subjective Subjective Date of Service: 04/03/24 Interval History: seen and evaluated feels little better reports coughing Na improved to 130 not eating much Review of Systems Review of Systems: Yes all other systems are reviewed and are negative Physical Exam 2 Vital Signs: Vital Signs: Last Vital Signs Temp 98.3 F 04/03/24 07:29 Pulse 85 04/03/24 07:29 Resp 16 04/03/24 07:29 BP 162/73 H 04/03/24 08:11 Pulse Ox 95 04/03/24 07:29 O2 Del Method Room Air 04/03/24 07:29 BMI result Body Mass Index 34.1 Const: Other: Constitutional : interactive, not in distress Cardiovascular : no JVP, no lower extremity edema Respiratory : bilateral chest movement, not in resp distress , no significant crackles. Gastrointestinal: soft, lax, Non tender Skin : Warm, Dry Neurological : Alert & oriented to self and place , No focal deficit Objective Data Active Medications Acetaminophen (Acetaminophen 325 Mg Tablet) 650 mg PO Q6H PRN PRN Reason: Pain, Mild 1-3,fever,headache Last Admin: 04/01/24 15:46 Dose: 650 mg Documented By: ROLF Albuterol/Ipratropium (Albuterol/Iprat 2.5/0.5mg 3 Ml Ampul.Neb) 3 ml INHALE Q4H PRN PRN Reason: Shortness of Breath/Wheezing Last Admin: 04/02/24 15:49 Dose: 3 ml Documented By: CARTER Amlodipine Besylate (Amlodipine Besylate 5 Mg Tablet) 5 mg PO DAILY [facility]; Protocol Last Admin: 04/03/24 08:11 Dose: 5 mg Documented By: KUSUM Benzonatate (Benzonatate 100 Mg Capsule) 200 mg PO TID PRN PRN Reason: Cough Last Admin: 04/02/24 14:31 Dose: 200 mg Documented By: KUSUM Calcium Carbonate (Calcium Carbonate 750 Mg Tab.Chew) 750 mg PO Q4H PRN PRN Reason: Heartburn Ceftriaxone Sodium (Ceftriaxone Sodium 1 Gm Vial) 1 gm IVPUSH Q24H [facility] Last Admin: 04/02/24 14:33 Dose: 1 gm Documented By: KUSUM Enoxaparin Sodium (Enoxaparin Sodium 30 Mg/0.3 Ml Syringe) 30 mg SUBCUT Q24H [facility] Last Admin: 04/02/24 14:33 Dose: 30 mg Documented By: KUSUM Azithromycin 500 mg/ Sodium (Chloride) 250 mls @ 125 mls/hr IV DAILY [facility] Last Admin: 04/03/24 08:15 Dose: 125 mls/hr Documented By: KUSUM Magnesium Hydroxide (Milk Of Magnesia 30 Ml Oral.Susp) 30 ml PO DAILY PRN PRN Reason: Constipation Melatonin (Melatonin 3 Mg Tablet) 6 mg PO BEDTIME PRN PRN Reason: Insomnia Methylprednisolone Sodium Succinate (Methylprednisolone Sod Succ 40 Mg/Ml Vial) 40 mg IVPUSH Q12H [facility] Last Admin: 04/03/24 03:12 Dose: 40 mg Documented By: TERESA Metoprolol Tartrate (Metoprolol Tartrate 25 Mg Tablet) 25 mg PO BEDTIME [facility]; Protocol Last Admin: 04/02/24 20:06 Dose: 25 mg Documented By: TERESA Ondansetron HCl (Ondansetron Hcl 4 Mg/2 Ml Vial) 4 mg IVPUSH Q8H PRN PRN Reason: Nausea and Vomiting Sodium Chloride (0.9 % Sodium Chloride Flush 3 Ml Syringe) 3 ml IVFLUSH QSHIFT [facility] Last Admin: 04/03/24 08:11 Dose: 3 ml Documented By: KUSUM Labs 04/03/24 05:18 04/03/24 05:18 Labs: Laboratory Results - last 24 hr 04/03/24 05:18 MCV 84.8 MCH 29.4 MCHC 34.7 RDW 13.2 Plt Count 559 H MPV 9.2 L Immature Gran % (Auto) 3.7 H Neut % (Auto) 83.9 H Lymph % (Auto) 8.1 L [place] % (Auto) 4.0 Eos % (Auto) 0.0 Baso % (Auto) 0.3 Lymph # (Auto) 1.8 [place] # (Auto) 0.9 Eos # (Auto) 0.0 Baso # (Auto) 0.1 Abs Immat Gran (auto) 0.82 H Absolute Neuts (auto) 18.5 H Absolute Nucleated RBC 0.000 Nucleated RBC % (auto) 0.0 Smear Tech's Comments VERIFIED Anion Gap 12 Estim Creat Clear Calc 27.7 Estimated GFR > 60 Random Glucose 136 H Calcium 8.5 Total Bilirubin 0.3 AST 37 H ALT 20 Alkaline Phosphatase 62 Total Protein 6.3 L Albumin 2.8 L Microbiology Microbiology Results: Microbiology 04/01/24 11:30 Blood Culture - Preliminary Blood - Venous No growth after 24 hours. 04/01/24 11:04 Blood Culture - Preliminary Blood - Venous No growth after 24 hours. Assessment and Plan (1) Pneumonia: Status: Acute (2) Multifocal pneumonia: Status: Acute (3) Influenza A: Status: Acute Plan 88-year-old female recently tested positive for influenza A seen at walk-in clinic for worsening shortness of breath and prescribed azithromycin and prednisone. Over the course of the next several days her breathing continued to worsen to the point where it was difficult to ambulate. In the emergency room today workup consistent with a 20,000 white count and x-ray consistent with the exam which demonstrates multifocal pneumonia Multifocal pneumonia secondary to influenza A WBCs trending down negative cultures Continue azithromycin/ceftriaxone 2/5 PRednisone DuoNebs q.4 hours p.r.n. wheezing titrate O2 to maintain sats greater than equal 92% Leukocytosis Likely 2/2 Steroids will switch to Prednisone Hypertension restart home meds GERD omeprazole while on methylprednisolone Full code Lovenox Patient will require midnights minimum of inpatient hospital stay to treat multifocal pneumonia that has failed outpatient therapies. This can not be achieved a lesser acute setting. Quality Stroke Does the patient have a stroke diagnosis?: No VTE Prior VTE?: No VTE Risk Level:: Medical - moderate - high VTE Device Contraindication: Treatment Not Indicated VTE Drug Contraindication: N/A - Med Ordered
[2024-04-03] MEDS: cefTRIAXone sodium 1 GM VIAL IVPUSH (15:37)
[2024-04-03] MEDS: Enoxaparin Sodium 30 MG/0.3 ML SYRINGE SUBCUT (15:37)
[2024-04-03] MEDS: Metoprolol Tartrate 25 MG TABLET PO (22:07)
[2024-04-04 03:42] VITALS: BP 169/79; PULSE 68; RESP 16; TEMP 36.1; O2SAT 93
[2024-04-04 06:48] LABS: MANUAL DIFF FLAG NO
[2024-04-04 06:56] LABS: Basophils Percent Auto 0.2 % (0-2); Hematocrit 36.9 % (37.0-47.0); Hemoglobin 12.6 g/dl (12.0-16.0); Imm Gran Abs Auto 0.44 X10*3/uL (0.00-0.03); Imm Gran Pct Auto 2.3 % (0.0-0.4); Lymphocytes Absolute Auto 1.5 X10*3/uL (1.2-4.9); Mean Corpuscular HGB Conc 34.1 g/dl (31.0-35.0); Mean Corpuscular Hemoglobin 29.4 pg (27.0-33.0); Mean Platelet Volume 8.6 fL (9.4-12.3); Monocytes Absolute Auto 1.2 X10*3/uL (0.1-1.2); Neutrophils Percent Auto 83.5 % (45-73); Platelet Count 607 X10*3/uL (160-400); Red Blood Count 4.29 X10*6/uL (4.20-5.50); Red Cell Distribution Width 13.4 % (11.0-16.0); White Blood Count 19.2 X10*3/uL (4.8-10.8)
[2024-04-04 07:43] VITALS: BP 140/65; PULSE 68; RESP 16; TEMP 36.7; O2SAT 92
[2024-04-04 08:24] LABS: Alanine Aminotransferase 23 U/L (0-31); Albumin Level 2.9 g/dL (3.5-5.0); Anion Gap 13 (12-20); Aspartate Amino Transferase 29 U/L (5-31); Bilirubin Total 0.4 mg/dL (0.0-1.0); Blood Urea Nitrogen 21 mg/dL (9-16); Calcium 8.7 mg/dL (8.4-10.2); Carbon Dioxide 25 mmol/L (22-29); Chloride 102 mmol/L (96-108); Estimated Glomerular Filt Rate > 60; Glucose Random 79 mg/dL (60-115); Potassium 3.8 mmol/L (3.3-5.1); Sodium 136 mmol/L (135-145); Total Protein 6.7 g/dL (6.5-8.0)
[2024-04-04 08:36] LABS: Alkaline Phosphatase 61 U/L (39-117)
[2024-04-04] MEDS: amLODIPine Besylate 5 MG TABLET PO (09:00)
--- NOTE | 2024-04-04 09:00 | MHC.CM.PN ---
Patient medically cleared for dc to [facility]. Patient has accepted a bed at [facility], her first choice. BLS transport scheduled for 10:30 am. Patient, RN and aware.
[2024-04-04] MEDS: 0.9 % Sodium Chloride Flush 3 ML SYRINGE IVFLUSH (09:01)
[2024-04-04] MEDS: predniSONE 20 MG TABLET 40 MG PO (09:01)
[2024-04-04] MEDS: Azithromycin 500 MG TABLET PO (09:19)
[2024-04-04] MEDS: cefuroxime axetiL 500 MG TABLET PO (09:19)
--- NOTE | 2024-04-04 09:32 | PM.DS ---
DS: Providers Provider Date of Service: 04/04/24 Date of admission: 04/01/24 14:42 Date of discharge: 04/04/24 Primary care physician: Augustine Chen MD DS: Diagnosis Discharge Diagnosis (1) Pneumonia: Status: Acute (2) Multifocal pneumonia: Status: Acute (3) Influenza A: Status: Acute DS: Summary Hospital Course Hospital Course: Admission note HPI 88-year-old woman who has been feeling unwell for about 3 weeks. She has been having respiratory symptoms. She was seen here a little over week ago and was tested positive for influenza A. She was prescribed azithromycin and prednisone and discharged. She feels she has been getting worse over the last few days. She has been producing yellow sputum. She has had cough and shortness of breath. She does not know if she has had a fever. Hospital course The patient was treated for Multifocal pneumonia secondary to influenza A as she was treated with IV Azithromycin, Ceftriaxone with IV steroids and nebulizers with good response over the course of hospital stay as she was weaned off O2 supplement and was able to participate with PT who recommended short term rehablitation. negative blood cultures. Leukocytosis Likely secondary Steroids and trended down. To finish total of 10 days of antibiotics of Azithromycin and Ceftin on discharge. cough medicine as needed. Discharge plan Continue Azithromycin and Ceftin as prescribed Cough medicine as needed Increase physical activity as tolerated Use Incentive spirometry to improve breathing capacity Time Attestation Discharge Coordination Time (in mins): 38 Quality: Safe Use of Opioids Does Pt have an Active Cancer Diagnosis on the Problem List?: No Quality: Stroke Does the patient have a stroke diagnosis?: No Physical Exam Vital Signs: Vital Signs: Last Vital Signs Temp 98.0 F 04/04/24 07:43 Pulse 68 04/04/24 07:43 Resp 16 04/04/24 07:43 BP 140/65 H 04/04/24 07:43 Pulse Ox 92 04/04/24 07:43 O2 Del Method Room Air 04/04/24 07:43 BMI result Body Mass Index 34.1 Const: Other: Constitutional : interactive, not in distress Cardiovascular : no JVP, no lower extremity edema Respiratory : bilateral chest movement, not in resp distress , no significant crackles. Gastrointestinal: soft, lax, Non tender Skin : Warm, Dry Neurological : Alert & oriented to self and place , No focal deficit DS: Data Data Completed and Pending Labs on day of discharge: Laboratory Results - last 24 hr 04/04/24 06:37 WBC 19.2 H RBC 4.29 Hgb 12.6 Hct 36.9 L MCV 86.0 MCH 29.4 MCHC 34.1 RDW 13.4 Plt Count 607 H MPV 8.6 L Immature Gran % (Auto) 2.3 H Neut % (Auto) 83.5 H Lymph % (Auto) 8.0 L Stephens % (Auto) 6.0 Eos % (Auto) 0.0 Baso % (Auto) 0.2 Lymph # (Auto) 1.5 Stephens # (Auto) 1.2 Eos # (Auto) 0.0 Baso # (Auto) 0.0 Abs Immat Gran (auto) 0.44 H Absolute Neuts (auto) 16.0 H Absolute Nucleated RBC 0.000 Nucleated RBC % (auto) 0.0 Sodium 136 Potassium 3.8 Chloride 102 Carbon Dioxide 25 Anion Gap 13 BUN 21 H Creatinine 0.79 Estim Creat Clear Calc 27.0 Estimated GFR > 60 Random Glucose 79 Calcium 8.7 Total Bilirubin 0.4 AST 29 ALT 23 Alkaline Phosphatase 61 Total Protein 6.7 Albumin 2.9 L Preliminary micro results at discharge 04/01/24 11:30 Blood Culture - Preliminary Blood - Venous No growth after 48 hours. 04/01/24 11:04 Blood Culture - Preliminary Blood - Venous No growth after 48 hours. Imaging Chest x-ray: Radiologist's impression: ITS Impressions Chest X-Ray 04/01/24 10:14 IMPRESSION: Acute on chronic airspace disease. Pulmonary edema versus multifocal pneumonia versus pneumonitis should be included in the differential diagnosis. Electronically signed by: Anthony Tamayo MD 04/01/2024 10:42 AM [facility] [place] Discharge Plan Discharge Anticipated Discharge Date/Time: 04/04/24 09:07 Patient Disposition: Xfer SNF Discharge Diagnosis: Influenza A Pneumonia Referrals: [facility] [Outside] - 1 Day (short term rehab) Augustine Chen MD [Primary Care Provider] - 1 Week Discharge Medications: New benzonatate 100 mg Capsule 200 mg PO TID PRN (Reason: Cough) Qty: 30 0RF azithromycin 500 mg tablet 500 mg PO DAILY 5 Days Qty: 5 0RF cefuroxime axetil 500 mg tablet 500 mg PO BID Qty: 10 0RF guaifenesin [Mucinex] 600 mg tablet extended release 12hr 600 mg PO Q12H Qty: 10 0RF Continued amlodipine 5 mg tablet 1 tab PO DAILY simvastatin 20 mg tablet 1 tab PO BEDTIME metoprolol tartrate 25 mg tablet 1 tab PO BEDTIME multivitamin Tablet 1 tab PO DAILY Discharge Orders: Discharge Order (Routine); Ordered 04/04/24 Ordered By: Pennie Zacarias Diet: Advance to usual diet Activity on Discharge: As tolerated Stand Alone Forms: Patient Portal Discharge page Print Language: Malay Care Plan Goals: Continue Azithromycin and Ceftin as prescribed Cough medicine as needed Increase physical activity as tolerated Use Incentive spirometry to improve breathing capacity Health Concerns: Pneumonia Plan of Treatment: Antibiotics physical therapy Assessment: as above
[2024-04-04 09:48] VITALS: BP 137/62; PULSE 92; RESP 16; TEMP 36.5; O2SAT 93
== END 2024-04-04 10:47 | disposition skilled nursing facility (03) | DRG 195 ==
LOC: HO.ED 15:21 → HO.EDOVER 15:27 → HO.S3 19:15
PROVIDERS: Admitting Provider Hospitalist; Emergency Provider Emergency Medicine; PCP Internal Medicine; Visit Provider Student in an Organized Health Care Education/Training Program
DX: J10.00 Influenza due to other identified influenza virus with unspecified type of pneumonia (principal); I10 Essential (primary) hypertension; K21.9 Gastro-esophageal reflux disease without esophagitis; Z20.822 Contact with and (suspected) exposure to COVID-19; Z79.899 Other long term (current) drug therapy
CPT/HCPCS: 0241U; 36415; 71046; 80048; 80053; 83605; 83735; 83880; 84484; 85007; 85025; 85027; 87040; 93005; 94640; 97116; 97162; 99285; J0456; J0696; J1650; J2919

== ENCOUNTER → 2024-04-01 10:14 | Outpatient (BNV) | payer MEDICARE, SELFPAY | PROVIDERS: PCP Internal Medicine; Visit Provider Radiology Diagnostic Radiology | DX: R06.00 Dyspnea, unspecified (principal) | CPT/HCPCS: 71046 ==

== ENCOUNTER → 2024-04-01 10:49 | Outpatient (BNV) | payer MEDICARE, SELFPAY | PROVIDERS: Emergency Provider Emergency Medicine; PCP Internal Medicine; Visit Provider Hospitalist | DX: K21.9 Gastro-esophageal reflux disease without esophagitis (principal); J10.1 Influenza due to other identified influenza virus with other respiratory manifestations; J18.9 Pneumonia, unspecified organism | CPT/HCPCS: 99223; 99232 ==

== ENCOUNTER 2024-05-19 15:07 | Outpatient (REF) | payer MEDICARE, SELFPAY ==
--- NOTE | ~2024-05-19 | XR_ITS ---
EXAMINATION: XR CHEST CLINICAL INFORMATION: COUGH COMPARISON: April 01, 2024. TECHNIQUE: 2 views of the chest were obtained. FINDINGS: Hyperinflated lungs. Pulmonary reticular pattern. No gross consolidation, pleural fissure pneumothorax. Cardiomediastinal silhouette size is unchanged with calcified plaque aortic arch. Multilevel thoracolumbar spondylosis. Old compression deformities of the lower thoracic upper lumbar spine vertebral bodies. Osteopenia versus osteoporosis. XR/XR chest 2V IMPRESSION: Chronic interstitial lung disease. Overall improved aeration. Electronically signed by: Anthony Tamayo MD 05/20/2024 01:24 PM EDT
--- OUTSIDE RECORDS SUMMARY | 2024-05-19 18:58 | XMS_ITS | Clinical Summary ---
Author Organization Unknown Care Team Providers Care Treasurer Name Role Phone CORTEZ NIELSON, OXANA Unavailable Unavailable TR HAIR, CHANTELL Unavailable Unavailab abhijit FOSTER PT, FADIA Unavailable Unavailable FITO KITCHENHAND, CHETNA Unavailable Unavailable SPAFFORD OT, HUONG Unavailable Unavailable READING OT, CALE Unavailable Unavailable CONDINO MOLYBDENUM STEAMER OPERATOR/SCHMITZ, JEAN CARLOS Unavailable Unav ailable Payers Payer Name Policy Type Policy Number Effective Date Expira tion Date MEDICARE.NGS.PDGM [id number] Problems Condition Name Condition Details Condition Category Status Onset Date Resolution Date Last Treatment Date Treating Clinician Comments INFLUENZA DUE TO OTH IDENT INFLUENZA VIRUS W OTH PNEUMONIA Active 04-04 00:00: 00 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 04-04 00:00: 00 ESSENTIAL (PRIMARY) HYPERTENSION Active 04-04 00:00: 00 UNSPECIFIED RIGHT BUNDLE-BRANC H BLOCK Active 04-04 00:00: 00 DEPRESSION, UNSPECIFIED Active 04-04 00:00: 00 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 Ordering Clinician Indication Dosage Frequency Signature (SIG) Comments Components azithromyci n 500 mg tablet 04-04 00:00: 00 04-23 00:00 :00 No [id number] Per instruc tions Per instructio ns (route: oral) Med Classific ation: Anti-Infe ctive Agents cefuroxime axetil 500 mg tablet 04-04 00:00: 00 04-23 00:00 :00 No [id number] Per instruc tions Per instructio ns (route: oral) Med Classific ation: Anti-Infe ctive Agents amlodipine 5 mg tablet 03-28 00:00: 00 04-23 00:00 :00 No [id number] Per instruc tions DAILY Per instructio ns DAILY (route: oral) Med Classific ation: Cardiovas cular Therapy Agents azithromyci n 250 mg tablet 03-23 00:00: 00 04-23 00:00 :00 No [id number] Per instruc tions DAILY FOR 4 DAYS DIRECTED Per instructio ns DAILY FOR 4 DAYS DIRECTED (route: oral) Med Classific ation: Anti-Infe ctive Agents prednisone 20 mg tablet 03-23 00:00: 00 04-23 00:00 :00 No [id number] Per instruc tions EVERY DAY FOR 7 DAYS Per instructio ns EVERY DAY FOR 7 DAYS (route: oral) Med Classific ation: Endocrine acetaminoph en 325 mg tablet 04-23 00:00: 00 Yes [id number] PAIN/FEVER 2 tablet EVERY 4 HOURS 2 tablet EVERY 4 HOURS (route: oral) Med Classific ation: Analgesic , Anti-infl ammatory or Antipyret ic amlodipine 5 mg tablet 04-23 00:00: 00 Yes [id number] HIGH BLOOD PRESSURE 1 tablet DAILY 1 tablet DAILY (route: oral) Med Classific ation: Cardiovas cular Therapy Agents metoprolol tartrate 25 mg tablet 04-23 00:00: 00 Yes [id number] HIGH BLOOD PRESSURE 1 tablet BEDTIME 1 tablet BEDTIME (route: oral) Med Classific ation: Cardiovas cular Therapy Agents multivitami n with iron tablet 04-23 00:00: 00 Yes [id number] SUPPLEMENT 1 tablet DAILY 1 tablet DAILY (route: oral) Med Classific ation: Electroly te Balance-N utritiona l Products simvastatin 20 mg tablet 04-23 00:00: 00 Yes [id number] HIGH LIPIDS 1 tablet BEDTIME 1 tablet BEDTIME (route: oral) Med Classific ation: Cardiovas cular Therapy Agents Vital Signs Vital Name Observation Time Observation Value Commen ts Temperature 2024-05-15 13:43:00.000 98 [degF] Temperature 2024-05-13 15:38:00.000 98.2 [degF] Temperature 2024-05-11 14:58:00.000 97.2 [degF] Temperature 2024-05-08 12:45:00.000 98.9 [degF] Temperature 2024-05-06 13:01:00.000 98.3 [degF] Temperature 2024-05-05 12:46:00.000 97.2 [degF] Temperature 2024-05-01 13:23:00.000 97 [degF] Temperature 2024-04-28 14:23:00.000 97.5 [degF] Temperature 2024-04-28 09:35:00.000 98.3 [degF] Temperature 2024-04-23 13:44:00.000 97.8 [degF] BMI (%) 2024-04-23 13:28:14.000 22 kg/m2 Height 2024-04-23 13:28:05.000 59 [in_us] Pulse 2024-05-15 13:42:00.000 70 /min Pulse 2024-05-13 15:38:00.000 67 /min Pulse 2024-05-11 14:58:00.000 80 /min Pulse 2024-05-08 12:45:00.000 60 /min Pulse 2024-05-06 13:01:00.000 66 /min Pulse 2024-05-05 12:46:00.000 80 /min Pulse 2024-05-01 13:23:00.000 62 /min Pulse 2024-04-28 14:23:00.000 60 /min Pulse 2024-04-28 11:58:00.000 56 /min Pulse 2024-04-23 13:44:00.000 63 /min O2 Saturation (%) 2024-05-08 12:45:00.000 95 % O2 Saturation (%) 2024-04-28 14:23:00.000 95 % O2 Saturation (%) 2024-04-28 09:35:00.000 98 % O2 Saturation (%) 2024-04-23 13:44:00.000 97 % Respirations 2024-05-15 13:42:00.000 18 /min Respirations 2024-05-13 15:38:00.000 18 /min Respirations 2024-05-11 14:58:00.000 18 /min Respirations 2024-05-08 12:45:00.000 16 /min Respirations 2024-05-06 13:01:00.000 18 /min Respirations 2024-05-05 12:46:00.000 18 /min Respirations 2024-05-01 13:23:00.000 17 /min Respirations 2024-04-28 14:23:00.000 17 /min Respirations 2024-04-28 09:35:00.000 18 /min Respirations 2024-04-23 13:44:00.000 17 /min Weight (lbs) 2024-05-01 13:23:00.000 112 [lb_av] Weight (lbs) 2024-04-23 13:28:14.000 112.8 [lb_av] Systolic Blood Pressure 2024-05-15 13:42:00.000 118 mm [Hg] Systolic Blood Pressure 2024-05-13 15:38:00.000 120 mm [Hg] Systolic Blood Pressure 2024-05-11 14:58:00.000 110 mm [Hg] Systolic Blood Pressure 2024-05-08 12:45:00.000 122 mm [Hg] Systolic Blood Pressure 2024-05-06 13:01:00.000 96 mm[ Hg] Systolic Blood Pressure 2024-05-05 12:46:00.000 110 mm [Hg] Systolic Blood Pressure 2024-05-01 13:23:00.000 100 mm [Hg] Systolic Blood Pressure 2024-04-28 14:23:00.000 110 mm [Hg] Systolic Blood Pressure 2024-04-28 09:35:00.000 100 mm [Hg] Systolic Blood Pressure 2024-04-23 13:44:00.000 102 mm [Hg] Diastolic Blood Pressure 2024-05-15 13:42:00.000 70 mm [Hg] Diastolic Blood Pressure 2024-05-13 15:38:00.000 56 mm [Hg] Diastolic Blood Pressure 2024-05-11 14:58:00.000 62 mm [Hg] Diastolic Blood Pressure 2024-05-08 12:45:00.000 50 mm [Hg] Diastolic Blood Pressure 2024-05-06 13:01:00.000 54 mm [Hg] Diastolic Blood Pressure 2024-05-05 12:46:00.000 62 mm [Hg] Diastolic Blood Pressure 2024-05-01 13:23:00.000 67 mm [Hg] Diastolic Blood Pressure 2024-04-28 14:23:00.000 56 mm [Hg] Diastolic Blood Pressure 2024-04-28 09:35:00.000 55 mm [Hg] Diastolic Blood Pressure 2024-04-23 13:44:00.000 50 mm [Hg] Plan of Treatment Planned Activity Planned Date Details Comments Future Scheduled Test RN TO OBSE RVE, ASSESS, EVALUATE, AND DEVELOP AN INDIVIDUALIZED PLAN OF CARE. AGENCY MAY ACCEPT ORDERS FROM CONSULTING PHYSICIANS. RN TO OBSERVE AND ASSESS, CONSULTING HR PROFESSIONAL/COURT MAGISTRATE TO OBSERVE FOR RISK FOR FALLS AND INSTRUCT IN FALL PREVENTION, HOME SAFETY, MEDICATION MANAGEMENT, INFECTION PREVENTION, AND NUTRITION MANAGEMENT. RN/CONSULTING HR PROFESSIONAL/COURT MAGISTRATE NURSE MAY PERFORM O2 SATURATION LEVEL ON ADMISSION AND PRN FOR RN TO ASSESS/CONSULTING HR PROFESSIONAL TO OBSERVE PATIENT, WITH NOTIFICATION TO THE PHYSICIAN IF SATURATION IS 90% IN THE ABSENCE OF MORE SPECIFIC PARAMETERS FROM THE PHYSICIAN. AGENCY MAY PERFORM A RESUMPTION OF CARE VISIT FOLLOWING ANY HOSPITAL ADMISSION. RN/CONSULTING HR PROFESSIONAL/COURT MAGISTRATE TO MONITOR CO-MORBID CONDITIONS LISTED ON THE PLAN OF CARE AND ANY NEW CONDITIONS THAT PRESENT THEMSELVES DURING THIS EPISODE TO IDENTIFY CHANGES AND INTERVENE TO MINIMIZE COMPLICATIONS. [code = RN TO OBSERVE, ASSESS, EVALUATE, AND DEVELOP AN INDIVIDUALIZED PLAN OF CARE. AGENCY MAY ACCEPT ORDERS FROM CONSULTING PHYSICIANS. RN TO OBSERVE AND ASSESS, CONSULTING HR PROFESSIONAL/COURT MAGISTRATE TO OBSERVE FOR RISK FOR FALLS AND INSTRUCT IN FALL PREVENTION, HOME SAFETY, MEDICATION MANAGEMENT, INFECTION PREVENTION, AND NUTRITION MANAGEMENT. RN/CONSULTING HR PROFESSIONAL/COURT MAGISTRATE NURSE MAY PERFORM O2 SATURATION LEVEL ON ADMISSION AND PRN FOR RN TO ASSESS/CONSULTING HR PROFESSIONAL TO OBSERVE PATIENT, WITH NOTIFICATION TO THE PHYSICIAN IF SATURATION IS 90% IN THE ABSENCE OF MORE SPECIFIC PARAMETERS FROM THE PHYSICIAN. AGENCY MAY PERFORM A RESUMPTION OF CARE VISIT FOLLOWING ANY HOSPITAL ADMISSION. RN/CONSULTING HR PROFESSIONAL/COURT MAGISTRATE TO MONITOR CO-MORBID CONDITIONS LISTED ON THE PLAN OF CARE AND ANY NEW CONDITIONS THAT PRESENT THEMSELVES DURING THIS EPISODE TO IDENTIFY CHANGES AND INTERVENE TO MINIMIZE COMPLICATIONS.] Future Scheduled Test MEDICATION MANAGEMENT; RN/CONSULTING HR PROFESSIONAL/COURT MAGISTRATE TO REVIEW MEDICATIONS FOR INTERACTIONS, EFFECTIVENESS OF DRUG THERAPY, AND SIGNS/SYMPTOMS OF ADVERSE REACTIONS. MAY INSTRUCT AND REINFORCE MEDICATION TEACHING RELATED TO THE USE OF MEDICATIONS, DOSAGE, FREQUENCY, PURPOSE, SIDE EFFECTS, AND TO REPORT COMPLICATIONS. [code = MEDICATION MANAGEMENT; RN/CONSULTING HR PROFESSIONAL/COURT MAGISTRATE TO REVIEW MEDICATIONS FOR INTERACTIONS, EFFECTIVENESS OF DRUG THERAPY, AND SIGNS/SYMPTOMS OF ADVERSE REACTIONS. MAY INSTRUCT AND REINFORCE MEDICATION TEACHING RELATED TO THE USE OF MEDICATIONS, DOSAGE, FREQUENCY, PURPOSE, SIDE EFFECTS, AND TO REPORT COMPLICATIONS.] Future Scheduled Test RISK FOR H OSPITALIZATION; RN TO ASSESS/TEACH, COURT MAGISTRATE/CONSULTING HR PROFESSIONAL TO OBSERVE/TEACH PATIENT/CAREGIVER ON RISK FOR HOSPITALIZATION/EMERGENCY ROOM VISITS, TEACH SIGNS AND SYMPTOMS THAT PUT PATIENT AT RISK, WHEN TO NOTIFY NURSE/PHYSICIAN OF COMPLICATIONS/DECLINE, AND WHEN TO CALL 911. [code = RISK FOR HOSPITALIZATION; RN TO ASSESS/TEACH, COURT MAGISTRATE/CONSULTING HR PROFESSIONAL TO OBSERVE/TEACH PATIENT/CAREGIVER ON RISK FOR HOSPITALIZATION/EMERGENCY ROOM VISITS, TEACH SIGNS AND SYMPTOMS THAT PUT PATIENT AT RISK, WHEN TO NOTIFY NURSE/PHYSICIAN OF COMPLICATIONS/DECLINE, AND WHEN TO CALL 911.] Future Scheduled Test CARDIOVASC ULAR SYSTEM; RN TO ASSESS/TEACH, CONSULTING HR PROFESSIONAL/COURT MAGISTRATE TO OBSERVE/TEACH RELATED TO ALTERED CARDIOVASCULAR STATUS TO MINIMIZE COMPLICATIONS AND REDUCE HOSPITALIZATION. [code = CARDIOVASCULAR SYSTEM; RN TO ASSESS/TEACH, CONSULTING HR PROFESSIONAL/COURT MAGISTRATE TO OBSERVE/TEACH RELATED TO ALTERED CARDIOVASCULAR STATUS TO MINIMIZE COMPLICATIONS AND REDUCE HOSPITALIZATION.] Future Scheduled Test HYPERTENSI ON MANAGEMENT; RN TO ASSESS AND TEACH, CONSULTING HR PROFESSIONAL/COURT MAGISTRATE TO OBSERVE AND TEACH WARNING SIGNS AND SYMPTOMS TO AVOID HOSPITALIZATION. [code = HYPERTENSION MANAGEMENT; RN TO ASSESS AND TEACH, CONSULTING HR PROFESSIONAL/COURT MAGISTRATE TO OBSERVE AND TEACH WARNING SIGNS AND SYMPTOMS TO AVOID HOSPITALIZATION.] Future Scheduled Test RESPIRATOR Y SYSTEM MANAGEMENT; RN TO ASSESS AND TEACH, CONSULTING HR PROFESSIONAL/COURT MAGISTRATE TO OBSERVE AND TEACH RELATED TO ALTERED RESPIRATORY STATUS TO MINIMIZE COMPLICATIONS AND REDUCE HOSPITALIZATION. [code = RESPIRATORY SYSTEM MANAGEMENT; RN TO ASSESS AND TEACH, CONSULTING HR PROFESSIONAL/COURT MAGISTRATE TO OBSERVE AND TEACH RELATED TO ALTERED RESPIRATORY STATUS TO MINIMIZE COMPLICATIONS AND REDUCE HOSPITALIZATION.] Future Scheduled Test PNEUMONIA MANAGEMENT; RN TO ASSESS AND TEACH, CONSULTING HR PROFESSIONAL/COURT MAGISTRATE TO OBSERVE AND TEACH SIGNS OF PNEUMONIA EXACERBATION AND PROVIDE EARLY INTERVENTIONS TO MINIMIZE RISK OF HOSPITALIZATION. [code = PNEUMONIA MANAGEMENT; RN TO ASSESS AND TEACH, CONSULTING HR PROFESSIONAL/COURT MAGISTRATE TO OBSERVE AND TEACH SIGNS OF PNEUMONIA EXACERBATION AND PROVIDE EARLY INTERVENTIONS TO MINIMIZE RISK OF HOSPITALIZATION.] Future Scheduled Test SKIN INTEG RITY RN TO ASSESS AND TEACH, CONSULTING HR PROFESSIONAL/COURT MAGISTRATE TO OBSERVE AND TEACH INTEGUMENTARY STATUS TO IDENTIFY CHANGES AND INTERVENE TO MINIMIZE COMPLICATIONS. PROVIDE SKILLED TEACHING OF GENERAL WOUND AND SKIN CARE AND PREVENTION RELATED TO ACTUAL ALTERED SKIN INTEGRITY [code = SKIN INTEGRITY RN TO ASSESS AND TEACH, CONSULTING HR PROFESSIONAL/COURT MAGISTRATE TO OBSERVE AND TEACH INTEGUMENTARY STATUS TO IDENTIFY CHANGES AND INTERVENE TO MINIMIZE COMPLICATIONS. PROVIDE SKILLED TEACHING OF GENERAL WOUND AND SKIN CARE AND PREVENTION RELATED TO ACTUAL ALTERED SKIN INTEGRITY ] Future Scheduled Test PAIN MANAG EMENT; RN TO ASSESS AND TEACH, COURT MAGISTRATE/CONSULTING HR PROFESSIONAL TO OBSERVE AND TEACH AND PROVIDE EDUCATION ON PAIN MANAGEMENT TECHNIQUES. [code = PAIN MANAGEMENT; RN TO ASSESS AND TEACH, COURT MAGISTRATE/CONSULTING HR PROFESSIONAL TO OBSERVE AND TEACH AND PROVIDE EDUCATION ON PAIN MANAGEMENT TECHNIQUES.] Future Scheduled Test FALL REDUC TION MANAGEMENT; RN TO ASSESS AND OBSERVE, CONSULTING HR PROFESSIONAL/COURT MAGISTRATE TO OBSERVE FALL RISK FACTORS AND EDUCATE PATIENT/CAREGIVER ON STRATEGIES TO MINIMIZE THE RISK OF FALLING. [code = FALL REDUCTION MANAGEMENT; RN TO ASSESS AND OBSERVE, CONSULTING HR PROFESSIONAL/COURT MAGISTRATE TO OBSERVE FALL RISK FACTORS AND EDUCATE PATIENT/CAREGIVER ON STRATEGIES TO MINIMIZE THE RISK OF FALLING.] Future Scheduled Test AGENCY MAY PERFORM A RESUMPTION OF CARE VISIT FOLLOWING ANY HOSPITAL ADMISSION. OT TO EVALUATE, OBSERVE / ASSESS, AND MONITOR, MOLYBDENUM STEAMER OPERATOR TO OBSERVE AND MONITOR, PROVIDE SKILLED THERAPEUTIC INTERVENTION, ACTIVITY, EDUCATION, AND TRAINING TO ADDRESS; BATHING/SHOWERING (OT/MOLYBDENUM STEAMER OPERATOR) ACTIVITIES OF DAILY LIVING (OT/MOLYBDENUM STEAMER OPERATOR) TOILET TRANSFER (OT/MOLYBDENUM STEAMER OPERATOR) BATH/SHOWER TRANSFER (OT/MOLYBDENUM STEAMER OPERATOR) ADAPTIVE EQUIPMENT/DURABLE MEDICAL EQUIPMENT MANAGEMENT(OT/STARLA) HOME ACTIVITY / EXERCISE PROGRAM (OT/STARLA) FEAR OF FALLING (OT/STARLA) OT TO ASSESS / MOLYBDENUM STEAMER OPERATOR TO MONITOR CARDIO/RESPIRATORY SYSTEM; AND NOTIFY THE PHYSICIAN AND/OR THE RN CLINICAL TROUBLE SHOOTING MECHANIC FOR PHYSICIAN NOTIFICATION FOR EARLY SIGNS AND SYMPTOMS OF EXACERBATION OR DETERORATION OT/STARLA TO MONITOR AND EDUCATE ON OXYGEN SATURATION DURING ADLS/IADLS, NOTIFY PHYSICIAN AND/OR THE RN CLINICAL TROUBLE SHOOTING MECHANIC FOR PHYSICIAN NOTIFICATION AND IF O2 SATS BELOW 90% AFTER 10 MIN OF REST. OT/STARLA TO EDUCATE ON PNEUMONIA / ASPIRATION PNEUMONIA SELF-MANAGEMENT. OT/STARLA MAY EDUCATE ON PAIN MANAGEMENT CLINICALLY INDICATED, INCLUDING NON-PHARMACOLOGICAL PAIN REDUCTION TECHNIQUES [code = AGENCY MAY PERFORM A RESUMPTION OF CARE VISIT FOLLOWING ANY HOSPITAL ADMISSION. OT TO EVALUATE, OBSERVE / ASSESS, AND MONITOR, MOLYBDENUM STEAMER OPERATOR TO OBSERVE AND MONITOR, PROVIDE SKILLED THERAPEUTIC INTERVENTION, ACTIVITY, EDUCATION, AND TRAINING TO ADDRESS; BATHING/SHOWERING (OT/STARLA) ACTIVITIES OF DAILY LIVING (OT/MOLYBDENUM STEAMER OPERATOR) TOILET TRANSFER (OT/MOLYBDENUM STEAMER OPERATOR) BATH/SHOWER TRANSFER (OT/MOLYBDENUM STEAMER OPERATOR) ADAPTIVE EQUIPMENT/DURABLE MEDICAL EQUIPMENT MANAGEMENT(OT/MOLYBDENUM STEAMER OPERATOR) HOME ACTIVITY / EXERCISE PROGRAM (OT/STARLA) FEAR OF FALLING (OT/STARLA) OT TO ASSESS / STARLA TO MONITOR CARDIO/RESPIRATORY SYSTEM; AND NOTIFY THE PHYSICIAN AND/OR THE RN CLINICAL TROUBLE SHOOTING MECHANIC FOR PHYSICIAN NOTIFICATION FOR EARLY SIGNS AND SYMPTOMS OF EXACERBATION OR DETERORATION OT/STARLA TO MONITOR AND EDUCATE ON OXYGEN SATURATION DURING ADLS/IADLS, NOTIFY PHYSICIAN AND/OR THE RN CLINICAL TROUBLE SHOOTING MECHANIC FOR PHYSICIAN NOTIFICATION AND IF O2 SATS BELOW 90% AFTER 10 MIN OF REST. OT/STARLA TO EDUCATE ON PNEUMONIA / ASPIRATION PNEUMONIA SELF-MANAGEMENT. OT/MOLYBDENUM STEAMER OPERATOR MAY EDUCATE ON PAIN MANAGEMENT CLINICALLY INDICATED, INCLUDING NON-PHARMACOLOGICAL PAIN REDUCTION TECHNIQUES ] Future Scheduled Test AGENCY MAY PERFORM A RESUMPTION OF CARE VISIT FOLLOWING ANY HOSPITAL ADMISSION. PT TO EVALUATE, OBSERVE / ASSESS, AND MONITOR, KITCHENHAND TO OBSERVE AND MONITOR, PROVIDE SKILLED THERAPEUTIC INTERVENTION, ACTIVITY, EDUCATION, AND TRAINING TO ADDRESS; PT/KITCHENHAND TO PROVIDE GAIT TRAINING FOR IMPROVED MOBILITY AND /OR TO NORMALIZE GAIT PATTERN NEUROMUSCULAR RE-EDUCATION / BALANCE / POSTURAL CONTROL (PT) THERAPEUTIC EXERCISES AND ESTABLISHING A HOME EXERCISE PROGRAM (PT/KITCHENHAND) PT / KITCHENHAND TO MONITOR AND EDUCATE ON OXYGEN SATURATION DURING ADLS/IADLS, NOTIFY PHYSICIAN AND/OR THE RN CLINICAL TROUBLE SHOOTING MECHANIC FOR PHYSICIAN NOTIFICATION AND IF O2 SATS BELOW PHYSICIAN ORDERED PARAMETERS AFTER 10 MIN OF REST PT TO ASSESS / KITCHENHAND TO MONITOR CARDIO/RESPIRATORY SYSTEM; AND NOTIFY THE PHYSICIAN AND/OR THE RN CLINICAL TROUBLE SHOOTING MECHANIC FOR PHYSICIAN NOTIFICATION FOR EARLY SIGNS AND SYMPTOMS OF EXACERBATION OR DETERIORATION. PT/KITCHENHAND TO IDENTIFY FALL RISK FACTORS; EDUCATE THE PATIENT/CAREGIVER ON WAYS TO REDUCE FALL RISK FACTORS AND ESTABLISH HOME EXERCISE PROGRAM TO MINIMIZE FALL RISK. MAY TEACH THE PATIENT FLOOR RECOVERY WHEN CLINICALLY APPROPRIATE PT / KITCHENHAND MAY EDUCATE ON PAIN MANAGEMENT CLINICALLY INDICATED, INCLUDING NON-PHARMACOLOGICAL PAIN REDUCTION TECHNIQUES [code = AGENCY MAY PERFORM A RESUMPTION OF CARE VISIT FOLLOWING ANY HOSPITAL ADMISSION. PT TO EVALUATE, OBSERVE / ASSESS, AND MONITOR, KITCHENHAND TO OBSERVE AND MONITOR, PROVIDE SKILLED THERAPEUTIC INTERVENTION, ACTIVITY, EDUCATION, AND TRAINING TO ADDRESS; PT/KITCHENHAND TO PROVIDE GAIT TRAINING FOR IMPROVED MOBILITY AND /OR TO NORMALIZE GAIT PATTERN NEUROMUSCULAR RE-EDUCATION / BALANCE / POSTURAL CONTROL (PT) THERAPEUTIC EXERCISES AND ESTABLISHING A HOME EXERCISE PROGRAM (PT/KITCHENHAND) PT / KITCHENHAND TO MONITOR AND EDUCATE ON OXYGEN SATURATION DURING ADLS/IADLS, NOTIFY PHYSICIAN AND/OR THE RN CLINICAL TROUBLE SHOOTING MECHANIC FOR PHYSICIAN NOTIFICATION AND IF O2 SATS BELOW PHYSICIAN ORDERED PARAMETERS AFTER 10 MIN OF REST PT TO ASSESS / KITCHENHAND TO MONITOR CARDIO/RESPIRATORY SYSTEM; AND NOTIFY THE PHYSICIAN AND/OR THE RN CLINICAL TROUBLE SHOOTING MECHANIC FOR PHYSICIAN NOTIFICATION FOR EARLY SIGNS AND SYMPTOMS OF EXACERBATION OR DETERIORATION. PT/KITCHENHAND TO IDENTIFY FALL RISK FACTORS; EDUCATE THE PATIENT/CAREGIVER ON WAYS TO REDUCE FALL RISK FACTORS AND ESTABLISH HOME EXERCISE PROGRAM TO MINIMIZE FALL RISK. MAY TEACH THE PATIENT FLOOR RECOVERY WHEN CLINICALLY APPROPRIATE PT / KITCHENHAND MAY EDUCATE ON PAIN MANAGEMENT CLINICALLY INDICATED, INCLUDING NON-PHARMACOLOGICAL PAIN REDUCTION TECHNIQUES ] Goal Patient Goal - S TEE HOME, NO HOSPITAL IF NOT NEEDED Goal Provider Goal - A PLAN OF CARE WILL BE ESTABLISHED THAT MEETS THE PATIENTS NEEDS. PATIENT WILL DEMONSTRATE OXYGEN SATURATION WITHIN NORMAL LIMITS OR PATIENTS OPTIMAL LEVEL ESTABLISHED BY THE PHYSICIAN THROUGHOUT CARE. CHANGES TO CO-MORBID CONDITIONS AND ANY NEW CONDITIONS WILL BE IDENTIFIED AND REPORTED TO THE PHYSICIAN. Goal Provider Goal - PATIENT/CAREGIVER TO VERBALIZE, AND CONSISTENTLY DEMONSTRATE EFFECTIVE, SAFE MANAGEMENT OF MEDICATION INCLUDING KNOWLEDGE OF EFFECTIVENESS, POTENTIAL SIDE EFFECTS AND DRUG REACTIONS AND WHEN TO CONTACT THE APPROPRIATE CARE PROVIDER. PATIENT/CAREGIVER WILL BE ABLE TO VERBALIZE UNDERSTANDING OF MEDICATION REGIMEN AND ACCURATELY TAKE MEDICATIONS PRESCRIBED WITHOUT ADVERSE EFFECTS BY EOE Goal Provider Goal - PATIENT/CAREGIVER WILL VERBALIZE UNDERSTANDING OF SIGNS AND SYMPTOMS THAT PUT THE PATIENT AT RISK FOR HOSPITALIZATION /EMERGENCY ROOM VISITS, WHEN TO NOTIFY NURSE/PHYSICIAN OF COMPLICATIONS/DECLINE AND WHEN TO CALL 911. Goal Provider Goal - PATIENT / CAREGIVER WILL VERBALIZE/DEMONSTRATE UNDERSTANDING OF MEASURES TO MANAGE ALTERED CARDIOVASCULAR STATUS BY EOE. Goal Provider Goal - PATIENT / CAREGIVER WILL VERBALIZE/DEMONSTRATE AN ABILITY TO ADHERE TO SELF-MANAGEMENT OF HTN TO MINIMIZE COMPLICATIONS AND AVOID HOSPITALIZATION BY END OF EPISODE. Goal Provider Goal - PATIENT / CAREGIVER WILL VERBALIZE/DEMONSTRATE UNDERSTANDING OF MEASURES TO MANAGE ALTERED RESPIRATORY STATUS BY END OF EPISODE. Goal Provider Goal - PATIENT / CAREGIVER WILL VERBALIZE/DEMONSTRATE AN ABILITY TO ADHERE TO PNEUMONIA SELF-MANAGEMENT TO MINIMIZE COMPLICATIONS AND AVOID HOSPITALIZATION BY END OF EPISODE. Goal Provider Goal - CHANGES IN SKIN INTEGRITY STATUS WILL BE IDENTIFIED AND REPORTED TO THE PHYSICIAN FOR PROMPT INTERVENTION. PATIENT / CAREGIVER WILL VERBALIZE/DEMONSTRATE ADEQUATE KNOWLEDGE OF INTEGUMENTARY STATUS AND APPROPRIATE MEASURES TO PROMOTE SKIN INTEGRITY AND PREVENT INJURY BY EOE Goal Provider Goal - PATIENT / CAREGIVER WILL VERBALIZE / DEMONSTRATE UNDERSTANDING OF PAIN CONTROL MEASURES BY EOE Goal Provider Goal - PATIENT/CAREGIVER WILL VERBALIZE/DEMONSTRATE UNDERSTANDING OF FALL RISK FACTORS AND IMPLEMENT STRATEGIES TO MINIMIZE FALL RISK. PATIENT/CAREGIVER WILL VERBALIZE/DEMONSTRATE AN ABILITY TO ADHERE TO FALL REDUCTION SELF-MANAGEMENT AND LIFE-STYLE CHANGES BY EOE Goal Provider Goal - OT LTG: PATIENT WILL DEMONSTRATE IMPROVED ABILITY TO PERFORM BATHING/SHOWERING AND REDUCE CAREGIVER BURDEN FROM MOD A TO SBA WITHIN 4 WEEKS. OT LTG: PATIENT WILL DEMONSTRATE IMPROVEMENT IN MODIFIED TIFFANIE INDEX SCORE FROM 82/100 TO 90/100 INDICATING DECREASED DEPENDENCY ON CAREGIVER ASSISTANCE WITH ACTIVITIES OF DAILY LIVING WITHIN 4 WEEKS OT LTG: PATIENT WILL DEMONSTRATE IMPROVED ABILITY TO PERFORM TOILET TRANSFERS TO REDUCE FALL RISK AND RISK OF INCONTINENCE AND UTI DEVELOPMENT FROM CGA TO INDEPENDENT WITHIN 4 WEEKS OT LTG: PATIENT WILL DEMONSTRATE IMPROVED ABILITY AND SAFETY TO PERFORM BATH/SHOWER TRANSFER FROM MIN A TO SBA WITHIN 4 WEEKS. OT LTG: PATIENT WILL DEMONSTRATE IMPROVED ABILITY TO MANAGE SHOWER STOOL SELF-CARE FROM UNABLE TO SBA WITHIN 4 WEEKS IN ORDER TO INCRESSE SAFETY WITH SHOWER TRANSFER. OT LTG: PATIENT/CAREGIVER WILL BE ABLE TO DEMONSTRATE UE STRENGTH EXERCISES / ACTIVITIES FOR IMPROVED ABILITY TO PERFORM FUNCTIONAL TRANSFERS FROM 3+/5 PROXIMALLY AND 4-/5 DISTALLY TO 4/5 WITHIN 4 WEEKS. OT LTG: PATIENT WILL DEMONSTRATE DECREASED FEAR OF FALLING DURING ADL/IADL TASKS EVIDENCED BY A DECREASE IN FES-I SCORE FROM 35 TO 30 WITHIN 4 WEEKS. OT LTG: PATIENT WILL NOT EXPERIENCE CARDIAC OR RESPIRATORY COMPLICATIONS THROUGHOUT THE EPISODE OF CARE. OT LTG: PATIENT WILL MAINTAIN OXYGEN SATURATION WITHIN PHYSICIAN ORDERED PARAMETERS THROUGHOUT THE EPISODE OF CARE. OT GOAL: PATIENT / CAREGIVER WILL DEMONSTRATE ADHERENCE TO PNEUMONIA SELF-MANAGEMENT BY END OF EPISODE. OT LTG: PATIENT WILL DEMONSTRATE UNDERSTANDING OF PAIN MANAGEMENT TECHNIQUES EVIDENCED BY REDUCED PAIN Goal Provider Goal - PT LTG: PATIENT WILL DEMONSTRATE REDUCED GAIT DEVIATIONS TO REDUCE THE RISK FOR FALLING AND MINIMIZE STRAIN ON KNEES/HIPS AND BACK EVIDENCED BY IMPROVED HEEL STRIKE AND CONSISTENT FOOT CLEARANCE BILATERALLY USING ROLLATOR TO WALK INDEPENDENTLY IN ORDER TO ACCESS ALL AREAS OF THE BUILDING AND TRANSPORTATION WITHIN 9 WEEKS PT LTG: PATIENT WILL DEMONSTRATE REDUCED FALL RISK EVIDENCED BY IMPROVED SELF- SELECTED WALKING SPEED (SSWS CUT SCORE 0.6 TO 0.9 INDICATES MODERATE FALL RISK, 0.6 M/S INDICATES HIGH FALL RISK) FROM 0.8M/SEC TO 1.1M/SEC WITHIN 9 WEEKS PT LTG: PATIENT WILL DEMONSTRATE REDUCED FALL RISK EVIDENCED BY TUG TEST (CUT SCORE >11 SECONDS INDICATES INCREASED FALL RISK) IMPROVING FROM 19 SECONDS TO 12 SECONDS WITHIN 9 WEEKS PT LTG: PATIENT WILL DEMONSTRATE IMPROVED FUNCTIONAL STRENGTH EVIDENCED BY FIVE TIMES SIT TO STAND TEST (CUT SCORE >12 SECONDS INDICATES AN INCREASED FALL RISK) IMPROVING FROM 22 SECONDS TO 17 SECONDS WITHIN 9 WEEKS PT LTG: PATIENT WILL DEMONSTRATE INCREASED STRENGTH OF BILATERAL LES FROM 3+/5 TO 4+/5 WITHIN 9 WEEKS IN ORDER TO IMPROVE SAFETY AND STABILITY WITH GAIT AND STANDING ACTIVITIES PT LTG: PATIENT WILL MAINTAIN OXYGEN SATURATION WITHIN PHYSICIAN ORDERED PARAMETERS THROUGHOUT EPISODE OF CARE. PT LTG: PATIENT WILL NOT EXPERIENCE CARDIAC OR RESPIRATORY COMPLICATIONS THROUGHOUT THE EPISODE OF CARE. PT LTG: PATIENT/CAREGIVER WILL DEMONSTRATE ADHERENCE TO FALL REDUCTION SELF-MANAGEMENT AND REDUCING FALL RISK FACTORS TO MINIMIZE FALL RISK BY END OF EPISODE. PT LTG: PATIENT WILL BE INDEPENDENT WITH IMPLEMENTATION OF HEP WITHIN 4 WEEKS PT GOAL: PATIENT WILL DEMONSTRATE UNDERSTANDING OF PAIN MANAGEMENT TECHNIQUES EVIDENCED BY REDUCED PAIN Encounters Start Date/Time End Date/Time Encounter Type Admission Type Attending [facility] Care Department Encounter ID Discharge Date Discharge Status Discharge Condition Discharge Reason Percent Goals Met 2024-04-23 00:00:00 2024-06-21 00:00:00 Outpatient NEW ADMISSION CHANTELL ARMANDO [facility] [id number] 34.29
--- OUTSIDE RECORDS SUMMARY | 2024-05-19 18:58 | XMS_ITS | Clinical Summary ---
Author Organization [facility] Facility Address [address] [place] [id number] Care Team Providers Care Policy Officer Name Role Phone Augustine Chen MD Primary Care Provider [phone] Social History Tobacco Use Types Packs/Day Years [...] complete [place] [id number] MEDICARE [facility] [place] [id number] MEDICARE [facility] Care Teams Policy Officer Relationship Specialty Start Date End Date Augustine Chen MD [address] [place] [id number] PCP - General 03/07/20
== END 2024-05-19 15:08 | disposition home or self-care (01) ==
LOC: HO.HMGCX 15:07
PROVIDERS: PCP Internal Medicine; Visit Provider Internal Medicine
DX: J18.8 Other pneumonia, unspecified organism (principal)
CPT/HCPCS: 71046